=== PATIENT | female | born 1955 | race Caucasian/White ===

== ENCOUNTER 2020-08-05 08:34 | Outpatient (REF) | payer MEDICARE, SELFPAY ==
[2020-08-05 09:50] LABS: Cholesterol 161 mg/dL; HDL Cholesterol 68 mg/dL; LDL Cholesterol Calculated 79 mg/dl; Triglycerides 74 mg/dL
[2020-08-05 09:59] LABS: Reflex LDLD? No
== END 2020-08-05 08:35 | disposition home or self-care (01) ==
LOC: HO.LAB 08:34
PROVIDERS: Visit Provider Internal Medicine
DX: E78.00 Pure hypercholesterolemia, unspecified (principal)
CPT/HCPCS: 80061

== ENCOUNTER 2021-02-09 06:46 | Outpatient (REF) | payer MEDICARE, SELFPAY ==
[2021-02-09 07:33] LABS: MANUAL DIFF FLAG NO
[2021-02-09 07:44] LABS: Basophils Absolute Auto 0.1 X10*3/uL (0.0-0.2); Basophils Percent Auto 1.6 % (0-2); Eosinophils Absolute Auto 0.3 X10*3/uL (0.0-0.4); Eosinophils Percent Auto 4.5 % (0-4); Hematocrit 41.4 % (37-47); Hemoglobin 13.6 g/dl (12.0-16.0); Imm Gran Abs Auto 0.01 X10*3/uL (0.00-0.03); Imm Gran Pct Auto 0.2 % (0.0-0.4); Lymphocytes Absolute Auto 1.9 X10*3/uL (1.2-4.9); Lymphocytes Percent Auto 33.4 % (20-40); Mean Corpuscular HGB Conc 32.9 g/dl (31.0-35.0); Mean Corpuscular Volume 91.2 fL (80-98); Mean Platelet Volume 11.1 fL (9.4-12.3); Monocytes Absolute Auto 0.5 X10*3/uL (0.1-1.2); Monocytes Percent Auto 7.8 % (2-11); Neutrophils Percent Auto 52.5 % (45-73); Platelet Count 246 X10*3/uL (160-400); Red Blood Count 4.54 X10*6/uL (4.20-5.50); Red Cell Distribution Width 12.9 % (11.0-16.0); White Blood Count 5.8 X10*3/uL (4.8-10.8)
[2021-02-09 07:51] LABS: Estimated Average Glucose 114 mg/dL; Hemoglobin A1c % 5.6 %
[2021-02-09 07:53] LABS: Alanine Aminotransferase 17 U/L (0-31); Alkaline Phosphatase 76 U/L (39-117); Anion Gap 10 (12-20); Aspartate Amino Transferase 19 U/L (5-31); Bilirubin Total 0.6 mg/dL (0.0-1.0); Blood Urea Nitrogen 10 mg/dL (9-16); Calcium 9.6 mg/dL (8.4-10.2); Carbon Dioxide 28 mmol/L (22-29); Chloride 108 mmol/L (96-108); Cholesterol 216 mg/dL; Estimated Glomerular Filt Rate > 60; Glucose Fasting 98 mg/dL (60-99); HDL Cholesterol 65 mg/dL; LDL Cholesterol Calculated 125 mg/dl; Potassium 4.5 mmol/L (3.3-5.1); Sodium 141 mmol/L (135-145); Total Protein 6.8 g/dL (6.5-8.0); Triglycerides 132 mg/dL
[2021-02-09 08:14] LABS: Vitamin D 25-OH Total 25.6 ng/mL (>30)
[2021-02-09 08:25] LABS: Reflex LDLD? No
[2021-02-09 09:27] LABS: Glucose Urine UA NEG (NEG); Leukocyte Esterase Urine NEG (NEG); Nitrite Urine NEG (NEG); Urine Blood NEG (NEG); Urine Ketones NEG (NEG); Urine Protein NEG (NEG-TRACE)
[2021-02-09 09:28] LABS: Appearance Urine CLEAR; Color Urine YELLOW
[2021-02-09 10:05] LABS: Creatinine Urine 93.42 mg/dL; Microalbumin Urine < 5.0 mg/L
== END 2021-02-09 06:47 | disposition home or self-care (01) ==
LOC: HO.LAB 06:46
PROVIDERS: PCP Internal Medicine; Visit Provider Internal Medicine
DX: Z00.00 Encounter for general adult medical examination without abnormal findings (principal); R73.09 Other abnormal glucose; R79.89 Other specified abnormal findings of blood chemistry; E78.00 Pure hypercholesterolemia, unspecified; E55.9 Vitamin D deficiency, unspecified
CPT/HCPCS: 36415; 80053; 80061; 81003; 82043; 82306; 83036; 85025

== ENCOUNTER 2021-04-08 08:53 | Outpatient (REF) | payer MEDICARE, SELFPAY ==
--- NOTE | ~2021-04-08 | MM_ITS ---
EXAMINATION: BONE DENSITOMETRY CLINICAL INDICATION: Osteoporosis. COMPARISON: Previous BD dated 01/24/2018 and baseline BD dated 11/25/2015. TECHNIQUE: Using a [employer] DXA System (software version: 13.1) manufactured by [employer], dual-energy x-ray absorptiometry was performed of the lumbar spine and left hip. The images are of good technical quality. Summary results are attached. FINDINGS: AP SPINE L1-L4: Current: BMD 0.854 g/cm2, Z-score -1.3, T-score -2.7, osteoporosis, 3.1% decrease from previous, 0.4% increase from baseline (<5% change is not significant). Prior: BMD 0.881 g/cm2. Baseline: BMD 0.851 g/cm2. LEFT FEMUR, NECK: Current: BMD 0.710 g/cm2, Z-score -1.0, T-score -2.4, osteopenia. Prior: BMD 0.754 g/cm2. Baseline: BMD 0.782 g/cm2. LEFT FEMUR, TOTAL: Current: BMD 0.810 g/cm2, Z-score -0.4, T-score -1.6, osteopenia, 4.6% decrease from previous, 4.3% decrease from baseline (<5% change is not significant). Prior: BMD 0.849 g/cm2. Baseline: BMD 0.846 g/cm2. IDENTIFIED RISK FACTORS: Menopause, history of fracture (adult). HISTORY OF FRACTURE: Ankle. MEDICATIONS: Calcium supplements or multivitamin, vitamin D. MM/XR DEXA axial skeleton IMPRESSION: 1. DIAGNOSIS: Osteoporosis based on the lowest T-score value of -2.7 in the lumbar spine applying World Health Organization criteria. 2. 10-YEAR FRACTURE RISK PREDICTION, FRAX: Major osteoporotic fracture (clinical spine, forearm, hip or shoulder) 20.0%. Hip fracture 4.0%. 3. Treatment Recommendations: NOF guidelines recommend consideration for treatment in postmenopausal women and men age 50 and older presenting with the following: -A hip or vertebral (clinical or morphometric) fracture. -T-score less than or equal to -2.5 at the femoral neck or spine after appropriate evaluation to exclude secondary causes. -Low bone mass at the hip or spine and a 10-year fracture probability by FRAX of greater than or equal to 3% for hip fracture or greater than or equal to 20% for major osteoporotic fracture based on the [place] adapted WHO algorithm. 4. Other Recommendations: All treatment decisions require clinical judgment and consideration of individual patient factors, including patient preferences, comorbidities, previous drug use, risk factors not captured in the FRAX model (e.g. frailty, falls, vitamin D deficiency, increased bone turnover, interval significant decline in bone density) and possible under or overestimation of fracture risk by FRAX. Additional medical evaluation for secondary cause of low bone mineral density may be appropriate. FUTURE SCAN RECOMMENDATION: People with diagnosed cases of osteoporosis or at high risk for fracture should have regular bone mineral density tests. For patients eligible for Medicare, routine testing is allowed once every 2 years. The testing frequency can be increased to one year for patients who have rapidly progressing disease, those who are receiving or discontinuing medical therapy to restore bone mass, or have additional risk factors.
--- NOTE | ~2021-04-08 | MM_ITS ---
EXAMINATION: MM SCREENING DIGITAL BREAST TOMOSYNTHESIS, BILATERAL CLINICAL INFORMATION: Screening. Asymptomatic. The lifetime risk of breast cancer based on the Tyrer-Cuzick Model is 4%. COMPARISON: Mammography: 12/29/2018, 11/15/2017, 10/05/2016 TECHNIQUE: Digital breast tomosynthesis is performed in both the craniocaudal and mediolateral oblique views along with computer-aided detection (CAD). Synthesized 2D images are generated from the tomosynthesis. Additional left CC view is provided. FINDINGS: There are scattered areas of fibroglandular density (ACR BI-RADS breast composition Category b). There are no significant masses, abnormal calcifications, or other abnormalities. Parenchymal pattern is similar to prior studies. No interval mass or developing density. The axilla and skin contours are unremarkable. MM/MM tomosynthesis screening BI IMPRESSION: No mammographic evidence of malignancy. ASSESSMENT: BI-RADS 1: Negative RECOMMENDATION: Routine annual mammography screening. This patient's information was entered into a reminder system with a target due date for their next mammogram.
== END 2021-04-08 08:54 | disposition home or self-care (01) ==
LOC: HO.MAMMO 08:53
PROVIDERS: Visit Provider Internal Medicine
DX: Z12.31 Encounter for screening mammogram for malignant neoplasm of breast (principal); Z13.820 Encounter for screening for osteoporosis; M81.0 Age-related osteoporosis without current pathological fracture; Z78.0 Asymptomatic menopausal state; Z87.81 Personal history of (healed) traumatic fracture; Z79.899 Other long term (current) drug therapy
CPT/HCPCS: 77063; 77067; 77080

== ENCOUNTER 2022-02-12 12:25 | Outpatient (REF) | payer MEDICARE, SELFPAY ==
[2022-02-12 12:30] LABS: MANUAL DIFF FLAG NO
[2022-02-12 12:39] LABS: Basophils Absolute Auto 0.1 X10*3/uL (0.0-0.2); Basophils Percent Auto 1.8 % (0-2); Eosinophils Absolute Auto 0.2 X10*3/uL (0.0-0.4); Eosinophils Percent Auto 3.7 % (0-4); Hematocrit 41.9 % (37.0-47.0); Hemoglobin 13.6 g/dl (12.0-16.0); Imm Gran Abs Auto 0.01 X10*3/uL (0.00-0.03); Imm Gran Pct Auto 0.2 % (0.0-0.4); Lymphocytes Absolute Auto 2.1 X10*3/uL (1.2-4.9); Lymphocytes Percent Auto 33.2 % (20-40); Mean Corpuscular HGB Conc 32.5 g/dl (31.0-35.0); Mean Corpuscular Hemoglobin 30.1 pg (27.0-33.0); Mean Corpuscular Volume 92.7 fL (80.0-98.0); Mean Platelet Volume 11.9 fL (9.4-12.3); Monocytes Absolute Auto 0.6 X10*3/uL (0.1-1.2); Monocytes Percent Auto 8.8 % (2-11); Neutrophils Absolute Auto 3.3 x10*3/uL (2.0-8.3); Neutrophils Percent Auto 52.3 % (45-73); Platelet Count 246 X10*3/uL (160-400); Red Blood Count 4.52 X10*6/uL (4.20-5.50); Red Cell Distribution Width 13.5 % (11.0-16.0); White Blood Count 6.3 X10*3/uL (4.8-10.8)
[2022-02-12 13:03] LABS: Alanine Aminotransferase 21 U/L (0-31); Alkaline Phosphatase 101 U/L (39-117); Anion Gap 9 (12-20); Aspartate Amino Transferase 21 U/L (5-31); Bilirubin Total 0.6 mg/dL (0.0-1.0); Blood Urea Nitrogen 11 mg/dL (9-16); Calcium 9.7 mg/dL (8.4-10.2); Carbon Dioxide 28 mmol/L (22-29); Chloride 107 mmol/L (96-108); Cholesterol 160 mg/dL; Estimated Glomerular Filt Rate > 60; Glucose Fasting 96 mg/dL (60-99); HDL Cholesterol 64 mg/dL; LDL Cholesterol Calculated 80 mg/dl; Potassium 4.4 mmol/L (3.3-5.1); Sodium 140 mmol/L (135-145); Total Protein 7.1 g/dL (6.5-8.0); Triglycerides 84 mg/dL
[2022-02-12 13:09] LABS: Creatinine Urine 106.25 mg/dL; Microalbum/Creatinine Ratio Ur 4.7 ug/mg cr
[2022-02-12 13:12] LABS: Estimated Average Glucose 111 mg/dL; Hemoglobin A1c % 5.5 %
[2022-02-12 13:14] LABS: Appearance Urine CLEAR; Color Urine YELLOW; Glucose Urine UA NEG (NEG); Leukocyte Esterase Urine NEG (NEG); Nitrite Urine NEG (NEG); Specific Gravity - Urine 1.025 (1.005-1.025); Urine Blood NEG (NEG); Urine Ketones NEG (NEG); Urine Protein NEG (NEG-TRACE)
[2022-02-12 13:17] LABS: Vitamin D 25-OH Total 26.4 ng/mL (>30)
[2022-02-12 13:37] LABS: RBC Urine 0 /HPF (0); Squamous Epithelial Cell Urine TRACE /LPF; WBC Urine 0-2 /HPF (0-4)
== END 2022-02-12 12:26 | disposition home or self-care (01) ==
LOC: HO.LNP 12:25
PROVIDERS: Visit Provider Internal Medicine
DX: Z00.00 Encounter for general adult medical examination without abnormal findings (principal); R73.03 Prediabetes; R79.89 Other specified abnormal findings of blood chemistry; E78.00 Pure hypercholesterolemia, unspecified; E55.9 Vitamin D deficiency, unspecified
CPT/HCPCS: 80053; 80061; 81001; 82043; 82306; 83036; 85025

== ENCOUNTER 2022-05-26 07:30 | Outpatient (REF) | payer MEDICARE, SELFPAY ==
--- NOTE | ~2022-05-26 | MM_ITS ---
EXAMINATION: MM SCREENING DIGITAL BREAST TOMOSYNTHESIS, BILATERAL CLINICAL INFORMATION: Screening. Asymptomatic. The lifetime risk of breast cancer based on the Tyrer-Cuzick Model is 4%. COMPARISON: Mammography: 04/08/2021, 12/29/2018, 11/15/2017 TECHNIQUE: Digital breast tomosynthesis is performed in both the craniocaudal and mediolateral oblique views along with computer-aided detection (CAD). Synthesized 2D images are generated from the tomosynthesis. Additional left CC view is provided. FINDINGS: There are scattered areas of fibroglandular density (ACR BI-RADS breast composition Category b). There are no significant masses, abnormal calcifications, or other abnormalities. There are stable small intramammary node mid and posterior upper outer left breast similar to prior studies. Parenchymal pattern is similar to prior studies. No developing density. No significant changes. MM/MM tomosynthesis screening BI IMPRESSION: No mammographic evidence of malignancy. ASSESSMENT: BI-RADS 2: Benign RECOMMENDATION: Routine annual mammography screening. This patient's information was entered into a reminder system with a target due date for their next mammogram.
== END 2022-05-26 07:31 | disposition home or self-care (01) ==
LOC: HO.MAMMO 07:30
PROVIDERS: PCP Internal Medicine; Visit Provider Internal Medicine
DX: Z12.31 Encounter for screening mammogram for malignant neoplasm of breast (principal)
CPT/HCPCS: 77063; 77067

== ENCOUNTER 2022-08-13 11:41 | Outpatient (REF) | payer MEDICARE, SELFPAY ==
[2022-08-13 12:07] LABS: Estimated Average Glucose 108 mg/dL; Hemoglobin A1c % 5.4 %
[2022-08-13 12:45] LABS: Alanine Aminotransferase 49 U/L (0-31); Alkaline Phosphatase 117 U/L (39-117); Aspartate Amino Transferase 40 U/L (5-31); Bilirubin Direct 0.3 mg/dL (0.0-0.5); Bilirubin Total 0.8 mg/dL (0.0-1.0); Cholesterol 174 mg/dL; Glucose Fasting 99 mg/dL (60-99); HDL Cholesterol 62 mg/dL; LDL Cholesterol Calculated 92 mg/dl; Total Protein 7.1 g/dL (6.5-8.0); Triglycerides 103 mg/dL
[2022-08-13 13:51] LABS: Reflex LDLD? No
== END 2022-08-13 11:42 | disposition home or self-care (01) ==
LOC: HO.LNP 11:41
PROVIDERS: Visit Provider Internal Medicine
DX: E78.00 Pure hypercholesterolemia, unspecified (principal); R73.03 Prediabetes
CPT/HCPCS: 80061; 80076; 82947; 83036

== ENCOUNTER 2023-02-21 11:00 | Outpatient (REF) | payer MEDICARE, SELFPAY | END 2023-02-21 11:01 | disposition home or self-care (01) | LOC: HO.LNP 11:00 | PROVIDERS: Visit Provider Internal Medicine | DX: Z00.00 Encounter for general adult medical examination without abnormal findings (principal); R73.03 Prediabetes; R79.89 Other specified abnormal findings of blood chemistry; E78.00 Pure hypercholesterolemia, unspecified; E55.9 Vitamin D deficiency, unspecified | CPT/HCPCS: 80053; 80061; 81001; 82043; 82306; 83036; 85025 ==

== ENCOUNTER 2023-06-02 08:00 | Outpatient (REF) | payer MEDICARE, SELFPAY ==
--- NOTE | ~2023-06-02 | MM_ITS ---
EXAMINATION: BONE DENSITOMETRY CLINICAL INDICATION: Age-related osteoporosis without current pathological fracture. COMPARISON: Previous BD dated 04/08/2021 and baseline BD dated 11/25/2015. TECHNIQUE: Using a [employer] DXA System (software version: 13.1) manufactured by [employer], dual-energy x-ray absorptiometry was performed of the lumbar spine and left hip. The images are of good technical quality. Summary results are attached. FINDINGS: AP SPINE L1-L4: Current: BMD 0.764 g/cm2, Z-score -1.9, T-score -3.5, osteoporosis, 10.5% decrease from previous, 10.2% decrease from baseline (<5% change is not significant). Prior: BMD 0.854 g/cm2. Baseline: BMD 0.851 g/cm2. LEFT FEMUR, NECK: Current: BMD 0.669 g/cm2, Z-score -1.1, T-score -2.7, osteoporosis. Prior: BMD 0.710 g/cm2. Baseline: BMD 0.782 g/cm2. LEFT FEMUR, TOTAL: Current: BMD 0.802 g/cm2, Z-score -0.3, T-score -1.6, osteopenia, 1.0% decrease from previous, 5.2% decrease from baseline (<5% change is not significant). Prior: BMD 0.810 g/cm2. Baseline: BMD 0.846 g/cm2. IDENTIFIED RISK FACTORS: History of adult fracture. Menopause. HISTORY OF FRACTURE: Other. MEDICATIONS: Calcium supplement and/or multivitamin. Vitamin D. MM/XR DEXA axial skeleton IMPRESSION: 1. DIAGNOSIS: Osteoporosis based on the lowest T-score value of -3.5 in the lumbar spine applying World Health Organization criteria. 2. 10-YEAR FRACTURE RISK PREDICTION, FRAX: According to the guidelines, FRAX calculation should only be performed on patients in the osteopenia bone density category.?Therefore, FRAX was not performed on this patient.? 3. Treatment Recommendations: NOF guidelines recommend consideration for treatment in postmenopausal women and men age 50 and older presenting with the following: -A hip or vertebral (clinical or morphometric) fracture. -T-score less than or equal to -2.5 at the femoral neck or spine after appropriate evaluation to exclude secondary causes. -Low bone mass at the hip or spine and a 10-year fracture probability by FRAX of greater than or equal to 3% for hip fracture or greater than or equal to 20% for major osteoporotic fracture based on the [place] adapted WHO algorithm. 4. Other Recommendations: All treatment decisions require clinical judgment and consideration of individual patient factors, including patient preferences, comorbidities, previous drug use, risk factors not captured in the FRAX model (e.g. frailty, falls, vitamin D deficiency, increased bone turnover, interval significant decline in bone density) and possible under or overestimation of fracture risk by FRAX. Additional medical evaluation for secondary cause of low bone mineral density may be appropriate. FUTURE SCAN RECOMMENDATION: People with diagnosed cases of osteoporosis or at high risk for fracture should have regular bone mineral density tests. For patients eligible for Medicare, routine testing is allowed once every 2 years. The testing frequency can be increased to one year for patients who have rapidly progressing disease, those who are receiving or discontinuing medical therapy to restore bone mass, or have additional risk factors.
== END 2023-06-02 08:01 | disposition home or self-care (01) ==
LOC: HO.MAMMO 08:00
PROVIDERS: PCP Internal Medicine; Visit Provider Internal Medicine
DX: Z12.31 Encounter for screening mammogram for malignant neoplasm of breast (principal); Z13.820 Encounter for screening for osteoporosis; Z78.0 Asymptomatic menopausal state; M81.0 Age-related osteoporosis without current pathological fracture
CPT/HCPCS: 77063; 77067; 77080

== ENCOUNTER → 2023-06-02 08:45 | Outpatient (BNV) | payer MEDICARE, SELFPAY | PROVIDERS: PCP Internal Medicine; Visit Provider Radiology Diagnostic Radiology | DX: Z12.31 Encounter for screening mammogram for malignant neoplasm of breast (principal) | CPT/HCPCS: 77063; 77067 ==

== ENCOUNTER 2023-09-01 11:00 | Outpatient (REF) | payer MEDICARE, SELFPAY ==
[2023-09-01 11:48] LABS: Estimated Average Glucose 111 mg/dL; Hemoglobin A1c % 5.5 % (<6.0)
[2023-09-01 11:56] LABS: Alanine Aminotransferase 19 U/L (0-31); Alkaline Phosphatase 110 U/L (39-117); Aspartate Amino Transferase 18 U/L (5-31); Bilirubin Direct 0.3 mg/dL (0.0-0.5); Bilirubin Total 0.7 mg/dL (0.0-1.0); Cholesterol 141 mg/dL (<200); Glucose Fasting 95 mg/dL (60-99); HDL Cholesterol 64 mg/dL (>40); LDL Cholesterol Calculated 60 mg/dL (<100); Total Protein 7.6 g/dL (6.5-8.0); Triglycerides 89 mg/dL (<150)
== END 2023-09-01 11:01 | disposition home or self-care (01) ==
LOC: HO.LNP 11:00
PROVIDERS: Visit Provider Internal Medicine
DX: E78.00 Pure hypercholesterolemia, unspecified (principal); R73.03 Prediabetes
CPT/HCPCS: 80061; 80076; 82947; 83036

== ENCOUNTER 2023-09-27 16:57 | Emergency (ER) | payer MEDICARE, SELFPAY ==
[2023-09-27 17:08] VITALS: BP 146/90; PULSE 83; O2SAT 96
--- NOTE | 2023-09-27 17:16 | ECG_ITS ---
Test Reason : CHEST PAIN Blood Pressure : / mmHG Vent. Rate : 080 BPM Atrial Rate : 080 BPM P-R Int : 160 ms QRS Dur : 074 ms QT Int : 352 ms P-R-T Axes : 014 016 042 degrees QTc Int : 405 ms Normal sinus rhythm Nonspecific ST abnormality Abnormal ECG When compared with ECG of 09-NOV-2014 08:48, QT has shortened Referred By: Generic ED Physician Electronically Signed By:KIERSTEN BOONE
[2023-09-27 17:18] VITALS: BP 174/85; PULSE 84; RESP 18; TEMP 37.3; O2SAT 93; BMI 26.8
[2023-09-27 17:22] VITALS: PULSE 81; RESP 18; O2SAT 94
[2023-09-27] MEDS: ondansetron HCL 4 MG/2 ML VIAL IVPUSH (17:27)
--- NOTE | 2023-09-27 17:56 | ED.GENADULT ---
HPI - General Adult General Chief complaint: General Medical Stated complaint: Brief LOC, vomiting dizziness Time Seen by Provider: 09/27/23 17:40 History of Present Illness HPI narrative: 68 y/o F patient; PMH HLD; presents from home reporting two days of generalized fatigue, nausea and vomiting. Decreased PO intake for the last two days. Today the patient had two witnessed episodes of syncope. The first she passed out into her 's arms and the second occurred while transferring onto a stretcher. She did not have head trauma or fall with either episode. Patient has multiple sick contacts at home. She otherwise denies: abdominal pain, chest pain, SOB, cough/congestion, fever or chills, numbness/weakness/tingling. Related Data Previous Rx's Medication Instructions Recorded ondansetron 4 mg disintegrating 4 mg PO Q8H PRN nausea and 09/27/23 tablet vomiting #30 tabs ondansetron 4 mg disintegrating 4 mg PO Q8H PRN nausea and 09/27/23 tablet vomiting #30 tabs Allergies Allergy/AdvReac Type Severity Reaction Status Date / Time No Known Allergies Allergy Unverified 05/08/20 15:06 Review of Systems Review of Systems: Yes all other systems are reviewed and are negative Neurologic: Denies Sensory deficit (Neuro) FORMERLY [facility], [facility] Past Medical History Attestation statement: The following information was validated with the patient. Social History Social History Alcohol intake: never Smoked in Last 30 Days: No Use of substances other than those prescribed or required for medical reasons: No Advance Directives: No Advance Directives Information Provided: No Physical Exam ED Vital Signs: Vital Signs - 24 hr 09/27/23 17:18 09/27/23 17:22 09/27/23 18:00 Temperature 99.1 F Pulse Rate 84 81 76 Respiratory Rate 18 18 18 Blood Pressure 174/85 H 143/94 H Pulse Oximetry 93 94 97 Oxygen Delivery Method Room Air Room Air BMI result Body Mass Index 26.8 Patient is afebrile and hemodynamically stable. Const General: comfortable and no acute distress Orientation/consciousness: patient oriented x3 HENMT Head: Yes atraumatic Ears: TM's normal bilaterally Eyes Pupils: Equal, round and reactive pupils present EOM: EOMs intact bilaterally Neck Neck: Yes full ROM, Yes supple and No tender Chest Chest palpation & inspection: normal inspection of the chest and normal palpation of entire chest wall Resp Effort & Inspection: normal respiratory effort, able to speak in complete sentences and no respiratory distress Auscultation: clear to auscultation bilaterally Cardio Rate: regular rate Rhythm: regular rhythm Peripheral pulses: Peripheral pulses 2+ throughout GI Inspection: Yes normal to inspection, No Abdominal wall edema and No distended Palpation (GI): Soft to palpation, not firm, nontender, no guarding and not rigid Neuro General: patient oriented x3, moves all extremities and no focal motor deficits Cranial nerves: Yes CN's II-XII intact bilaterally and Yes Equal, round and reactive pupils present Sensory Exam: No Sensory deficit (Neuro) Course Course Course Narrative: Patient is afebrile and hemodynamically stable. Will obtain respiratory swab, basic laboratory studies, EKG. Will provided 2L IVF. Reevaluation(s) Reevaluation #1: Discussed respiratory swab finding of influenza with patient. Discussed risks versus benefits of tamiflu. Patient would prefer to defer tamiflu at this time. Labs reviewed - notable for mild transaminitis - likely in known setting of viral illness. Patient informed she will need repeat CMP once viral symptoms resolved. Negative troponin. Suspect syncope vasovagal in origin 2/2 to dehydration in setting of influenza. Patient able to tolerate PO liquids and crackers without difficulty. Plan: Discharge to home with PCP follow up Return precautions given Medications Administered Discontinued Medications Generic Name Dose Route Start Last Admin Trade Name Freq PRN Reason Stop Dose Admin Sodium Chloride 1,000 mls @ 999 mls/hr 09/27/23 18:15 09/27/23 19:25 Ns IV 09/27/23 19:15 Infused .Q1H1M STANLEY Infusion Sodium Chloride 1,000 mls @ 999 mls/hr 09/27/23 18:45 09/27/23 20:23 Ns IV 09/27/23 19:45 Infused .Q1H1M STANLEY Infusion Ondansetron HCl 4 mg 09/27/23 17:23 09/27/23 17:27 Ondansetron Hcl 4 Mg/2 Ml Vial IVPUSH 09/27/23 17:24 4 mg ONCE ONE Administration Medical Decision Making Lab Data 09/27/23 18:21 09/27/23 18:21 Labs: Lab Results 09/27/23 09/27/23 Range/Units 17:29 18:21 WBC 5.2 (4.8-10.8) X10*3/uL RBC 4.50 (4.20-5.50) X10*6/uL Hgb 13.5 (12.0-16.0) g/dl Hct 40.1 (37.0-47.0) % MCV 89.1 (80.0-98.0) fL MCH 30.0 (27.0-33.0) pg MCHC 33.7 (31.0-35.0) g/dl RDW 13.3 (11.0-16.0) % Plt Count 173 D (160-400) X10*3/uL MPV 11.1 (9.4-12.3) fL Immature Gran % (Auto) 0.2 (0.0-0.4) % Neut % (Auto) 77.8 H (45-73) % Lymph % (Auto) 8.7 L (20-40) % [place] % (Auto) 11.7 H (2-11) % Eos % (Auto) 0.6 (0-4) % Baso % (Auto) 1.0 (0-2) % Lymph # (Auto) 0.5 L (1.2-4.9) X10*3/uL [place] # (Auto) 0.6 (0.1-1.2) X10*3/uL Eos # (Auto) 0.0 (0.0-0.4) X10*3/uL Baso # (Auto) 0.1 (0.0-0.2) X10*3/uL Abs Immat Gran (auto) 0.01 (0.00-0.03) X10*3/uL Absolute Neuts (auto) 4.0 (2.0-8.3) x10*3/uL Absolute Nucleated RBC 0.000 (0.0-0.012) X10*3/uL Nucleated RBC % (auto) 0.0 (0.0-0.2) /100WBC Sodium 139 (135-145) mmol/L Potassium 4.4 (3.3-5.1) mmol/L Chloride 104 (96-108) mmol/L Carbon Dioxide 27 (22-29) mmol/L Anion Gap 12 (12-20) BUN 7 L (9-16) mg/dL Creatinine 0.74 (0.5-1.4) mg/dL Estim Creat Clear Calc 70.2 Estimated GFR > 60 Random Glucose 113 (60-115) mg/dL Calcium 9.3 (8.4-10.2) mg/dL Total Bilirubin 0.5 (0.0-1.0) mg/dL Direct Bilirubin 0.2 (0.0-0.5) mg/dL AST 55 H (5-31) U/L ALT 78 H (0-31) U/L Alkaline Phosphatase 127 H (39-117) U/L Troponin I High Sens < 2.7 (<3.5-17.0) ng/L Total Protein 7.5 (6.5-8.0) g/dL Albumin 3.8 (3.5-5.0) g/dL Lipase 20 (8-78) U/L Influenza Type A (PCR) POSITIVE A (Negative) Influenza Type B (PCR) NEGATIVE (Negative) RSV RNA Qual (PCR) NEGATIVE (Negative) SARS-CoV-2 RNA (RT-PCR) NEGATIVE (Negative) Discharge Plan Discharge Clinical Impression: Influenza Patient Disposition: Home, Self-Care Instructions: Influenza (DC) Additional Instructions: As we discussed, you were seen today for fatigue, nausea/vomiting, and passing out. Your respiratory swab showed you were positive for influenza. You have chosen to defer Tamiflu. Your lab work today showed mildly elevated liver function tests. This can occur due to a virus, but should be repeated within 1 - 2 weeks after your symptoms resolve. Please focus on drinking fluids, resting, and using ibuprofen/tylenol as needed for fever and pain management. Return to the emergency department for difficulty breathing, chest pain, or further episodes of passing out especially if you hit your head. Prescriptions: New ondansetron 4 mg tablet,disintegrating 4 mg PO Q8H PRN (Reason: nausea and vomiting) Qty: 30 0RF ondansetron 4 mg tablet,disintegrating 4 mg PO Q8H PRN (Reason: nausea and vomiting) Qty: 30 0RF Referrals: Monroe Meléndez MD [Primary Care Provider] - 1 week
[2023-09-27 18:00] VITALS: BP 143/94; PULSE 76; RESP 18; O2SAT 97
[2023-09-27] MEDS: 0.9 % Sodium Chloride 1,000 ML 999 ML IV ×2 (18:11→19:22)
[2023-09-27 18:28] LABS: MANUAL DIFF FLAG NO
[2023-09-27 18:29] LABS: Basophils Absolute Auto 0.1 X10*3/uL (0.0-0.2); Eosinophils Percent Auto 0.6 % (0-4); Hematocrit 40.1 % (37.0-47.0); Hemoglobin 13.5 g/dl (12.0-16.0); Imm Gran Abs Auto 0.01 X10*3/uL (0.00-0.03); Imm Gran Pct Auto 0.2 % (0.0-0.4); Lymphocytes Absolute Auto 0.5 X10*3/uL (1.2-4.9); Lymphocytes Percent Auto 8.7 % (20-40); Mean Corpuscular HGB Conc 33.7 g/dl (31.0-35.0); Mean Corpuscular Volume 89.1 fL (80.0-98.0); Mean Platelet Volume 11.1 fL (9.4-12.3); Monocytes Absolute Auto 0.6 X10*3/uL (0.1-1.2); Monocytes Percent Auto 11.7 % (2-11); Neutrophils Percent Auto 77.8 % (45-73); Platelet Count 173 X10*3/uL (160-400); Red Cell Distribution Width 13.3 % (11.0-16.0); White Blood Count 5.2 X10*3/uL (4.8-10.8)
[2023-09-27 18:32] LABS: Influenza A PCR POSITIVE (Negative); Influenza B PCR NEGATIVE (Negative); Resp Syncy Virus RNA Qual PCR NEGATIVE (Negative); SARS COV2 PCR INHOUSE NEGATIVE (Negative)
--- NOTE | 2023-09-27 18:41 | PC.NURSE ---
Upon arrival with EMS patient with episode that appeared she was choking. Brought to room 16, patient able to clear secretions on own. Alert and oriented, reports has felt weak and tired over the last few days. Reports was cooking and lowered her to the ground because she knew that she was going to pass out. Medicated per oct, no longer throwing up, reports feeling better after fluids. NSR on monitor
[2023-09-27 18:44] LABS: Alanine Aminotransferase 78 U/L (0-31); Albumin Level 3.8 g/dL (3.5-5.0); Alkaline Phosphatase 127 U/L (39-117); Anion Gap 12 (12-20); Aspartate Amino Transferase 55 U/L (5-31); Bilirubin Direct 0.2 mg/dL (0.0-0.5); Bilirubin Total 0.5 mg/dL (0.0-1.0); Blood Urea Nitrogen 7 mg/dL (9-16); Calcium 9.3 mg/dL (8.4-10.2); Carbon Dioxide 27 mmol/L (22-29); Chloride 104 mmol/L (96-108); Creatinine Clr Calc Pharmacy 70.2; Estimated Glomerular Filt Rate > 60; Glucose Random 113 mg/dL (60-115); Lipase 20 U/L (8-78); Potassium 4.4 mmol/L (3.3-5.1); Sodium 139 mmol/L (135-145); Total Protein 7.5 g/dL (6.5-8.0)
[2023-09-27 18:56] LABS: Troponin-I High Sensitivity < 2.7 ng/L (<3.5-17.0)
[2023-09-27 21:46] VITALS: BP 142/64; PULSE 78; RESP 18; O2SAT 98
== END 2023-09-27 22:18 | disposition home or self-care (01) ==
PROVIDERS: Emergency Provider Emergency Medicine; PCP Internal Medicine
DX: J10.1 Influenza due to other identified influenza virus with other respiratory manifestations (principal); R11.2 Nausea with vomiting, unspecified; R55 Syncope and collapse; Z79.899 Other long term (current) drug therapy
CPT/HCPCS: 0241U; 36415; 80048; 80076; 83690; 84484; 85025; 93005; 96361; 96374; 99284; 99285; J2405

== ENCOUNTER → 2023-09-27 17:16 | Outpatient (BNV) | payer MEDICARE, SELFPAY | PROVIDERS: Emergency Provider Emergency Medicine; PCP Internal Medicine; Visit Provider Internal Medicine | DX: R07.9 Chest pain, unspecified (principal); R94.31 Abnormal electrocardiogram [ECG] [EKG] | CPT/HCPCS: 93010 ==

== ENCOUNTER 2023-10-28 11:45 | Outpatient (REF) | payer MEDICARE, SELFPAY ==
[2023-10-28 12:57] LABS: Alanine Aminotransferase 19 U/L (0-31); Albumin Level 3.8 g/dL (3.5-5.0); Alkaline Phosphatase 84 U/L (39-117); Aspartate Amino Transferase 16 U/L (5-31); Bilirubin Direct 0.2 mg/dL (0.0-0.5); Bilirubin Total 0.6 mg/dL (0.0-1.0); Total Protein 7.2 g/dL (6.5-8.0)
== END 2023-10-28 11:46 | disposition home or self-care (01) ==
LOC: HO.LNP 11:45
PROVIDERS: Visit Provider Internal Medicine
DX: R79.89 Other specified abnormal findings of blood chemistry (principal)
CPT/HCPCS: 80076

== ENCOUNTER 2023-12-14 07:56 | Inpatient (IN) | payer MEDICARE, SELFPAY ==
[2023-12-14] VITALS (11 sets, daily range): BP systolic 120–148; BP diastolic 58–89; PULSE 53–100; RESP 14–20; TEMP 34.6–36.8; O2SAT 92–100; BMI 28.2; BMI 28.7; BMI 29.3
--- NOTE | ~2023-12-14 | XR_ITS ---
EXAMINATION: XR CHEST CLINICAL INFORMATION: Pacemaker insertion COMPARISON: None available. TECHNIQUE: 2 views of the chest were obtained. FINDINGS: Left sided pacer placed with distal tips directed towards the right atrium and right ventricular apex. Pacer appears intact. No pneumothorax. Heart and pulmonary vessels are normal. No congestive change. Lungs clear. No pleural effusions. XR/XR chest 2V IMPRESSION: Pacer placed as described. No abnormalities noted.
--- NOTE | ~2023-12-14 | CT_ITS ---
EXAMINATION: CT HEAD WITHOUT CONTRAST (STROKE PROTOCOL) CLINICAL INFORMATION: Stroke protocol. Headache and syncope. Concern for dissection. COMPARISON: Previous head CT October 2014 TECHNIQUE: Contiguous axial imaging was performed from the skull base to vertex without intravenous administration of contrast. This CT examination was performed using dose optimization techniques as appropriate, variously including the following: *Automated exposure control *Adjustment of mA and/or kV according to patient size (this includes techniques or standardized protocols for targeted exams where dose is matched to indication/reason for exam; i.e. extremities or head) *Use of iterative reconstruction technique DLP: 771 mGy-cm FINDINGS: There is no evidence of an extra-axial collection. There is no evidence of intra or extra-axial hemorrhage. The ventricles and extra-axial CSF spaces are prominent suggestive of mild generalized atrophy. There is nonspecific periventricular white matter disease. No mass, mass effect or infarct is seen. Review of bone windows is normal. No skull fracture. Visualized paranasal sinuses, mastoid air cells and middle ears are clear. CT/CT head for stroke IMPRESSION: No acute intracranial pathology. Generalized atrophy and nonspecific periventricular white matter disease similar to 2015 exam. This critical result was discussed with Dr. Wallis at 909 hours on 12/14/2023. It was ascertained that the content and urgency of the report was understood at the time of direct communication.
--- NOTE | ~2023-12-14 | CT_ITS ---
EXAMINATION: CTA OF THE HEAD AND NECK CLINICAL INFORMATION: Severe right-sided neck pain. Headache. Rule out dissection. COMPARISON: Head CT dated 12/14/2023. Head CT dated 11/09/2014. TECHNIQUE: Test bolus sequences followed by intravenous administration 70 mL of Omnipaque 350. Helical imaging was performed in the axial plane from the mediastinum to the skull vertex. Delayed postcontrast imaging of the head was also performed. The data was processed at the staff nuclear medicine technologist's workstation for generation of MIP sequences. Three-dimensional volume rendered reformatted images were also generated at an offline 3-D workstation. Stenoses are assessed in accordance with NASCET criteria unless otherwise indicated. This CT examination was performed using dose optimization techniques as appropriate, variously including the following: *Automated exposure control *Adjustment of mA and/or kV according to patient size (this includes techniques or standardized protocols for targeted exams where dose is matched to indication/reason for exam; i.e. extremities or head) *Use of iterative reconstruction technique DLP: 1321 mGy-cm. FINDINGS: CTA neck: The imaged aortic arch and origins of the great vessels are normal in caliber with mild atherosclerotic wall calcifications. The common carotid arteries are widely patent. The carotid bifurcations are patent with mild atheromatous disease and fibrofatty plaque extending into the posterior aspect of the left carotid bulb. The remainder of the cervical internal carotid arteries are normal and without stenotic narrowing. The vertebral arteries opacify normally and are of normal caliber. Due to developmental atlantooccipital assimilation, the canal for the upper cervical left vertebral artery at the skull base is likely narrowed. The soft tissues of the neck are unremarkable. 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 Prominent retrodental amorphous calcification may be due to a crystalline deposition arthropathy, as seen in CPPD, or could be related to chronic osteoarthritic disease. The imaged portions of the lungs are clear with mild emphysematous changes. CTA head: The intradural vertebral arteries and basilar artery are normal. The posterior cerebral arteries are widely patent. The internal carotid arteries are of normal caliber. The EFREN and MCA vascular complexes bilaterally are normal. Moderate diffuse brain parenchymal volume loss again evident moderate to severe chronic white matter microangiopathy. There is commensurate ex vacuo dilatation of the ventricles relative to the sulcal spaces. There is no abnormal parenchymal or leptomeningeal enhancement. The venous sinuses opacify normally. CT/CT angio head neck stroke IMPRESSION: No evidence of a vascular dissection. No significant stenosis or occlusion in the cervical or intracranial vasculature at the level of the [place]. 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 Due to this developmental skull base anatomical variant, the left vertebral artery canal is fairly narrowed. Otherwise, the left vertebral artery opacifies normally at this level. Imaging findings reported to Dr. Mcpherson at 9:53 AM on 12/14/2023.
--- NOTE | ~2023-12-14 | FL_ITS ---
EXAMINATION: XR FLUOROSCOPY WITH IMAGES CLINICAL INFORMATION: Dual-chamber pacemaker. COMPARISON: None available. TECHNIQUE: Fluoroscopy Supervised By: Dr. Aponte. Fluoroscopy Time: 10 minutes 54 seconds. Cumulative Dose: 137.87 mGy. DAP: 39.559 Gy-cm2. Images: 4 FINDINGS: One image demonstrates contrast in the axillary and subclavian vein. Final images demonstrate a left chest wall pacemaker with one lead in the right atria the other at the right ventricular apex. FL/FL guidance in OR IMPRESSION: Fluoroscopy and spot films provided during pacemaker placement.
--- NOTE | 2023-12-14 08:22 | ECG_ITS ---
Test Reason : SYNCOPE Blood Pressure : / mmHG Vent. Rate : 045 BPM Atrial Rate : 045 BPM P-R Int : 154 ms QRS Dur : 078 ms QT Int : 484 ms P-R-T Axes : -09 036 050 degrees QTc Int : 418 ms Sinus bradycardia Otherwise normal ECG When compared with ECG of 27-SEP-2023 17:21, Vent. rate has decreased BY 35 BPM Referred By: Jennifer Mcpherson Electronically Signed By:RACHEL LEIVA MD
--- NOTE | 2023-12-14 08:36 | ED_ITS ---
HPI - Dizziness General Chief Complaint: Weakness Stated Complaint: R NECK PAIN,WEAK,NAUSEA/VOMTING PER EMS Time Seen by Provider: 12/14/23 08:02 Source: patient and old records reviewed Mode of arrival: EMS Limitations: no limitations History of Present Illness HPI Narrative: 68 yo female with PMH of HLD here with c/o abrupt onset severe R sided neck pain that caused her to get severe headache and syncope with vomiting x 2. She still has neck pain but it does not really hurt to move. This has never happened before she is not on thinners. She feels a little dizzy no numbness, weakness in extremities, no slurring of speech and no vision changes. EMS noted she vomited on scene with them and was pale and diaphoretic. No recent neck trauma or manipulation. She only takes a statin at home. MD elicited complaint: dizziness, lightheadedness and other (severe neck and head pain) Onset (ago): hour(s) (7am today) Timing: sudden onset Severity: severe Description: lightheadedness and other (syncope, severe neck pain and headache) History of similar symptoms: No Exacerbating factors: nothing Relieving factors: nothing Associated symptoms: nausea, vomiting and syncope Related Data Previous Rx's ?Medication ?Instructions ?Recorded ondansetron 4 mg disintegrating 4 mg PO Q8H PRN nausea and 09/27/23 tablet vomiting #30 tabs ondansetron 4 mg disintegrating 4 mg PO Q8H PRN nausea and 09/27/23 tablet vomiting #30 tabs Allergies Allergy/AdvReac Type Severity Reaction Status Date / Time No Known Allergies Allergy Unverified 12/14/23 08:21 Review of Systems 2 Review of Systems: Constitutional : No Fever, No Chills, No Fatigue ENT/Mouth : No sore throat, No Rhinorrhea Eyes: No Eye Pain, No Swelling, No Redness Cardiovascular : No Chest Pain, No SOB, No Dyspnea on Exertion Respiratory : No Cough, No Sputum Gastrointestinal : pos Nausea, pos Vomiting, No Diarrhea, No abdominal Pain Genitourinary : No Dysuria, No Urinary Frequency, No Hematuria, Musculoskeletal : No joint pain, No Myalgias, No Joint Swelling Skin : No Skin Lesions, No rash Neuro : No Weakness, No Numbness, pos Dizziness, positive Headache, pos syncope Psych : No Anxiety/Panic, No Depression All other systems reviewed and are negative PMFSH Past Medical History Attestation statement: The following information was validated with the patient. Source: old records reviewed Medical History (Updated 12/14/23 @ 12:42 by Jennifer Mcpherson DO) Hyperlipidemia Social History Social History (Updated 12/14/23 @ 08:40 by Jennifer Mcpherson DO) Alcohol intake: never Patient Tobacco Use Status: Never used Tobacco Advance Directives: No Advance Directives Information Provided: Yes Do you have a plan to hurt others: No Plan Physical Exam 2 Vital Signs: Vital Signs: Last Vital Signs Temp 95.3 F L 12/14/23 09:49 Pulse 62 12/14/23 09:49 Resp 14 12/14/23 09:49 BP 148/59 H 12/14/23 09:49 Pulse Ox 100 12/14/23 09:49 O2 Del Method Room Air 12/14/23 09:49 BMI result Body Mass Index 28.2 Appearance: Alert. Oriented X3. Mild acute distress. Eyes: Pupils equal, round and reactive to light. ENT: Pharynx normal. Neck: Normal inspection. Neck supple. no pain on R side CVS: Normal heart rate and rhythm. Pulses normal. Respiratory: No respiratory distress. Breath sounds normal. Abdomen: Soft and nontender. Skin: Skin warm and clammy pale skin color. Normal skin turgor. Extremities: No lower extremity edema. No calf ttp Neuro: Oriented X 3. No motor deficit. No sensory deficit. NIH Stroke Scale Internal: Initial- Upon Arrival Level of Consciousness: Alert Level of Consciousness Questions: Answers both questions correctly Level of Consciousness Commands: Performs both tasks correctly Best Gaze: Normal Visual: No visual loss Facial Palsy: Normal Motor Arm (Right): No drift Motor Arm (Left): No drift Motor Leg (Right): No drift Motor Leg (Left): No drift Limb Ataxia: Absent Sensory: Normal Best Language: No aphasia Dysarthia: Normal Extinction and Inattention: No abnormality Score: 0 Course Course Course Narrative: review of tele showing 9 second pauses around 920am while patient was in bed - no vomiting reported patient still feels weak and dizzy no chest pain will review with cardiology Dr. Narayan at bedside 1230pm Medications Administered Discontinued Medications Generic Name Dose Route Start Last Admin Trade Name Freq PRN Reason Stop Dose Admin Dexamethasone Sodium Phosphate 8 mg 12/14/23 09:02 12/14/23 09:16 Dexamethasone Sod Phosphate 4 Mg/Ml Vial IVPUSH 12/14/23 09:03 8 mg ONCE ONE Administration Sodium Chloride 1,000 mls @ 999 mls/hr 12/14/23 08:45 12/14/23 10:26 Ns IV 12/14/23 09:45 Infused .Q1H1M STANLEY Infusion Ketorolac Tromethamine 15 mg 12/14/23 10:12 12/14/23 10:23 Ketorolac Tromethamine 15 Mg/Ml Vial IVPUSH 12/14/23 10:13 15 mg ONCE ONE Administration Lorazepam 0.5 mg 12/14/23 10:12 12/14/23 10:24 Lorazepam 2 Mg/Ml Vial IVPUSH 12/14/23 10:13 0.5 mg STAT STA Administration Morphine Sulfate 4 mg 12/14/23 08:45 12/14/23 09:15 Morphine Sulfate 4 Mg/Ml Cartridge IVPUSH 12/14/23 08:46 4 mg ONCE ONE Administration Protocol Ondansetron HCl 4 mg 12/14/23 08:45 12/14/23 09:16 Ondansetron Hcl 4 Mg/2 Ml Vial IVPUSH 12/14/23 08:46 4 mg ONCE ONE Administration Medical Decision Making Medical Decision Making MDM Narrative: 68 yo female with PMH of hyperlipidemia here with c/o severe abrupt onset R sided neck pain resulting in syncope headache and vomiting she is GCS 15 and NIH 0 she is intact at this time I have ordered EKG, stat CTA head and neck for stroke given concern for vert artery dissection. She is not on thinners. IV zofran and morphine for pain. Differential Diagnosis Differential Diagnoses: The differential diagnosis associated with the presentation includes SAH, vertebral artery dissection Admission/Observation Consideration of admission/observation: Escalation of care including admission/observation considered admit given sinus pauses and syncope Consult Healthcare Provider Management of the patient was discussed with: Hospitalist (will admit) and Document Control Specialist (Dr. Narayan at bedside ) Lab Data MDM Lab Attestation statement: I reviewed the patient's lab results. 12/14/23 09:26 12/14/23 09:26 Labs: Lab Results 12/14/23 12/14/23 12/14/23 Range/Units 09:09 09:26 11:38 WBC 9.0 (4.8-10.8) X10*3/uL RBC 4.40 (4.20-5.50) X10*6/uL Hgb 13.2 (12.0-16.0) g/dl Hct 39.3 (37.0-47.0) % MCV 89.3 (80.0-98.0) fL MCH 30.0 (27.0-33.0) pg MCHC 33.6 (31.0-35.0) g/dl RDW 13.2 (11.0-16.0) % Plt Count 216 (160-400) X10*3/uL MPV 10.8 (9.4-12.3) fL Immature Gran % (Auto) 0.2 (0.0-0.4) % Neut % (Auto) 71.0 (45-73) % Lymph % (Auto) 17.9 L (20-40) % [place] % (Auto) 8.5 (2-11) % Eos % (Auto) 1.6 (0-4) % Baso % (Auto) 0.8 (0-2) % Lymph # (Auto) 1.6 (1.2-4.9) X10*3/uL [place] # (Auto) 0.8 (0.1-1.2) X10*3/uL Eos # (Auto) 0.1 (0.0-0.4) X10*3/uL Baso # (Auto) 0.1 (0.0-0.2) X10*3/uL Abs Immat Gran (auto) 0.02 (0.00-0.03) X10*3/uL Absolute Neuts (auto) 6.4 (2.0-8.3) x10*3/uL Absolute Nucleated RBC 0.000 (0.0-0.012) X10*3/uL Nucleated RBC % (auto) 0.0 (0.0-0.2) /100WBC Whole Blood PT 11.9 (11.1-13.5) sec Whole Blood INR 1.0 (0.9-1.1) Sodium 138 (135-145) mmol/L Potassium 4.4 (3.3-5.1) mmol/L Chloride 109 H (96-108) mmol/L Carbon Dioxide 24 (22-29) mmol/L Anion Gap 9 L (12-20) BUN 13 (9-16) mg/dL Creatinine 0.71 (0.5-1.4) mg/dL Estim Creat Clear Calc 63.9 Estimated GFR > 60 Random Glucose 129 H (60-115) mg/dL Calcium 9.0 (8.4-10.2) mg/dL Magnesium 1.9 (1.6-2.6) mg/dL Total Bilirubin 0.6 (0.0-1.0) mg/dL Direct Bilirubin 0.2 (0.0-0.5) mg/dL AST 19 (5-31) U/L ALT 17 (0-31) U/L Alkaline Phosphatase 82 (39-117) U/L Troponin I High Sens < 2.7 < 2.7 (<3.5-17.0) ng/L Total Protein 6.9 (6.5-8.0) g/dL Albumin 3.5 (3.5-5.0) g/dL COVID-19 (SUSAN) Negative (Negative) COVID-19 Clin Com See Note Independent Interpretation I performed an independent interpretation of an: EKG and CT Scan (no dissection) Interpretation: Rate: 45 Rhythm: sinus bradycardia [place]: normal Normal P waves. Normal WANDY. Normal QRS complex. ST T wave : no JINA, normal qTC: 418 prior studies: no acute ischemi The study has been interpreted contemporaneously by me. . Radiology Impression Discussion of test interpretation with radiology: I discussed test interpretation with the radiologist and I have reviewed the radiologist's reading. Radiologist Impression: 920am CT head negative Independent Historian Clinical information obtained from an independent historian. History obtained from or confirmed by: EMS Critical Care Time Critical Care Time Critical Care Time: Yes Total Critical Care Time: 60 Attestation: IV morphine for pain improvement, consult, stroke protocol, admission I attest to this time spent taking care of the patient Discharge Plan Discharge Clinical Impression: Acute neck pain, Sinus pause, Syncope and collapse Patient Disposition: Admitted As Inpatient Prescriptions: No Action ondansetron 4 mg tablet,disintegrating 4 mg PO Q8H PRN (Reason: nausea and vomiting) Qty: 30 0RF ondansetron 4 mg tablet,disintegrating 4 mg PO Q8H PRN (Reason: nausea and vomiting) Qty: 30 0RF Print Language: Bur[place]ian
[2023-12-14 09:13] LABS: Prothrombin Time Whole Bld POC 11.9 sec (11.1-13.5)
[2023-12-14] MEDS: Morphine Sulfate 4 MG/ML CARTRIDGE IVPUSH (09:15)
[2023-12-14] MEDS: 0.9 % Sodium Chloride 1,000 ML 999 ML IV (09:15)
[2023-12-14] MEDS: dexAMETHasone sod phosphate 4 MG/ML VIAL 8 MG IVPUSH (09:16)
[2023-12-14] MEDS: ondansetron HCL 4 MG/2 ML VIAL IVPUSH (09:16)
[2023-12-14 09:30] LABS: MANUAL DIFF FLAG NO
[2023-12-14 09:36] LABS: Basophils Absolute Auto 0.1 X10*3/uL (0.0-0.2); Basophils Percent Auto 0.8 % (0-2); Eosinophils Absolute Auto 0.1 X10*3/uL (0.0-0.4); Eosinophils Percent Auto 1.6 % (0-4); Hematocrit 39.3 % (37.0-47.0); Hemoglobin 13.2 g/dl (12.0-16.0); Imm Gran Abs Auto 0.02 X10*3/uL (0.00-0.03); Imm Gran Pct Auto 0.2 % (0.0-0.4); Lymphocytes Absolute Auto 1.6 X10*3/uL (1.2-4.9); Lymphocytes Percent Auto 17.9 % (20-40); Mean Corpuscular HGB Conc 33.6 g/dl (31.0-35.0); Mean Corpuscular Volume 89.3 fL (80.0-98.0); Mean Platelet Volume 10.8 fL (9.4-12.3); Monocytes Absolute Auto 0.8 X10*3/uL (0.1-1.2); Monocytes Percent Auto 8.5 % (2-11); Neutrophils Absolute Auto 6.4 x10*3/uL (2.0-8.3); Platelet Count 216 X10*3/uL (160-400); Red Cell Distribution Width 13.2 % (11.0-16.0)
[2023-12-14 09:59] LABS: Alanine Aminotransferase 17 U/L (0-31); Albumin Level 3.5 g/dL (3.5-5.0); Alkaline Phosphatase 82 U/L (39-117); Anion Gap 9 (12-20); Aspartate Amino Transferase 19 U/L (5-31); Bilirubin Direct 0.2 mg/dL (0.0-0.5); Bilirubin Total 0.6 mg/dL (0.0-1.0); Blood Urea Nitrogen 13 mg/dL (9-16); Carbon Dioxide 24 mmol/L (22-29); Chloride 109 mmol/L (96-108); Creatinine Clr Calc Pharmacy 63.9; Estimated Glomerular Filt Rate > 60; Glucose Random 129 mg/dL (60-115); Magnesium 1.9 mg/dL (1.6-2.6); Potassium 4.4 mmol/L (3.3-5.1); Sodium 138 mmol/L (135-145); Total Protein 6.9 g/dL (6.5-8.0)
[2023-12-14 10:12] LABS: COVID-19 Test Negative (Negative); IDNOW Serial# 08D9AD1C
[2023-12-14] MEDS: Ketorolac Tromethamine 15 MG/ML VIAL IVPUSH (10:23)
[2023-12-14] MEDS: LORazepam 2 MG/ML VIAL 0.5 MG IVPUSH (10:24)
[2023-12-14 10:41] LABS: Troponin-I High Sensitivity < 2.7 ng/L (<3.5-17.0)
[2023-12-14 12:15] LABS: Troponin-I High Sensitivity < 2.7 ng/L (<3.5-17.0)
--- NOTE | 2023-12-14 13:45 | P.CONCA_ITS ---
History of Present Illness History of Present Illness Date of Service: 12/14/23 Requesting physician: Jennifer Mcpherson Consult reason: other (Syncope, sinus pause) Chief complaint: R NECK PAIN,WEAK,NAUSEA/VOMTING PER EMS Narrative: I was consulted to see Adelaida in emergency room as patient came with syncopal episode. Patient is a 68-year-old female with prior history of hyperlipidemia on medications for the same. Patient woke up this morning says she was working a lot with her and right hand yesterday. Woke up with significant right neck pain of unclear etiology. She then went to the bathroom and she felt lightheaded and then passed out. Vomited after that. She said in the past she has had similar episodes, last episode was recently when she had diarrhea and was dehydrated and then she felt warm and passed out. However this episode she says she actually blacked out and when I asked what the difference for she says that she does not recall this episode at all. She came to the emergency room was sent down for CT scan for her severe right neck pain with a suspicion for dissection and this was negative. An hour later in the Emergency was noted to have significant pauses up to 9 seconds with escape junctional escape ventricular complexes. Got lightheaded during this episode. She was not particularly nauseous or vomiting at that point in time. Patient has remained hemodynamically stable and is been mostly bed-bound. Cardiology consult was sought because of the syncopal episode and sinus pauses. Review of Systems 2 Constitutional: Constitutional: Reports no additional constitutional complaints Eyes: Eyes: Reports no additional eye complaints ENT: Reports system reviewed and no additional complaints, except as documented Cardiovascular: Cardiovascular: Denies chest pain, Denies leg edema, Reports lightheadedness, Reports Loss of Consciousness, Denies palpitations and Denies dyspnea Respiratory: Respiratory: Reports no additional respiratory complaints and Denies dyspnea Gastrointestinal: Gastrointestinal: Reports no additional gastrointestinal complaints Genitourinary: Genitourinary: Reports no additional female genitourinary complaints Musculoskeletal: Musculoskeletal: Reports other (Right neck pain) Neurologic: Reports system reviewed and no additional complaints, except as documented Psychiatric: Psychiatric: Reports no additional psychiatric complaints Endocrine: Endocrine: Reports no additional endocrine complaints and Denies palpitations PMFSH Past Medical History Medical History Hyperlipidemia Social History Social History Alcohol intake: never Patient Tobacco Use Status: Never used Tobacco Advance Directives: No Advance Directives Information Provided: Yes Do you have a plan to hurt others: No Plan Meds Allergies Allergy/AdvReac Type Severity Reaction Status Date / Time No Known Allergies Allergy Unverified 12/14/23 08:21 Physical Exam 2 Vital Signs: Vital Signs: Last Vital Signs Temp 95.3 F L 12/14/23 09:49 Pulse 62 12/14/23 09:49 Resp 14 12/14/23 09:49 BP 148/59 H 12/14/23 09:49 Pulse Ox 100 12/14/23 09:49 O2 Del Method Room Air 12/14/23 09:49 BMI result Body Mass Index 28.2 Const: General: cooperative, comfortable, no acute distress, alert and awake Nutritional Appearance: overweight Orientation/consciousness: patient oriented x3 HEENT: Head: Yes normocephalic and Yes atraumatic Neck: Neck: Yes trachea midline, Yes supple and Yes no JVD Resp: Effort & Inspection: normal respiratory effort Auscultation: clear to auscultation bilaterally Cardio: Jugular venous distension: no JVD Palpation: normal PMI Rate: r egular rate Rhythm: regular rhythm Heart sounds: S1 normal heart sound present, S2 normal heart sound present, no click, no gallops, no murmurs and no rubs GI: Auscultation: normal bowel sounds Skin: General skin exam: no rashes or lesions noted Neuro: General: patient oriented x3 and no focal motor deficits Extrem: General: Yes no clubbing, cyanosis or edema Psych: Appearance: grossly normal Objective Labs and Meds 12/14/23 09:26 12/14/23 09:26 Lab results: Laboratory Results - last 24 hr 12/14/23 12/14/23 12/14/23 09:09 09:26 11:38 WBC 9.0 RBC 4.40 Hgb 13.2 Hct 39.3 MCV 89.3 MCH 30.0 MCHC 33.6 RDW 13.2 Plt Count 216 MPV 10.8 Immature Gran % (Auto) 0.2 Neut % (Auto) 71.0 Lymph % (Auto) 17.9 L [place] % (Auto) 8.5 Eos % (Auto) 1.6 Baso % (Auto) 0.8 Lymph # (Auto) 1.6 [place] # (Auto) 0.8 Eos # (Auto) 0.1 Baso # (Auto) 0.1 Abs Immat Gran (auto) 0.02 Absolute Neuts (auto) 6.4 Absolute Nucleated RBC 0.000 Nucleated RBC % (auto) 0.0 Whole Blood PT 11.9 Whole Blood INR 1.0 Sodium 138 Potassium 4.4 Chloride 109 H Carbon Dioxide 24 Anion Gap 9 L BUN 13 Creatinine 0.71 Estim Creat Clear Calc 63.9 Estimated GFR > 60 Random Glucose 129 H Calcium 9.0 Magnesium 1.9 Total Bilirubin 0.6 Direct Bilirubin 0.2 AST 19 ALT 17 Alkaline Phosphatase 82 Troponin I High Sens < 2.7 < 2.7 Total Protein 6.9 Albumin 3.5 COVID-19 (SUSAN) Negative COVID-19 Clin Com See Note EKG shows sinus bradycardia with no acute ST T wave changes Imaging Radiologist's impression: Impressions Head CT 12/14/23 08:51 IMPRESSION: No acute intracranial pathology. Generalized atrophy and nonspecific periventricular white matter disease similar to 2015 exam. This critical result was discussed with Dr. Wallis at 909 hours on 12/14/2023. It was ascertained that the content and urgency of the report was understood at the time of direct communication. Head/Neck CTA 12/14/23 09:04 IMPRESSION: No evidence of a vascular dissection. No significant stenosis or occlusion in the cervical or intracranial vasculature at the level of the [place]. 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 Due to this developmental skull base anatomical variant, the left vertebral artery canal is fairly narrowed. Otherwise, the left vertebral artery opacifies normally at this level. Imaging findings reported to Dr. Mcpherson at 9:53 AM on 12/14/2023. Assessment and Plan (1) Syncope and collapse: Status: Acute Patient comes with syncope after severe right neck pain and has had syncope in the past in dehydration situation after GI vomiting. These episodes seem to be reflex in nature although patient has significant pauses associated lightheadedness and is possible that she has vasovagal syncope with significant cardio inhibitory response. Either way if she has significant sinus node dysfunction and/or cardio inhibitory vasovagal syncope she would benefit from a pacemaker placement to prevent recurrent syncopal episodes and injury. This was discussed with her and her family extensively at bedside. The risks, benefits, alternatives to the procedures were discussed. Potential long-term complications were discussed as well in details. Would consider dual-chamber Medtronic pacemaker with rate drop response. Discussed with EPS Dr. Aponte who would be able to perform the pacemaker later today. Will follow with you. Procedures Date of Service Date of Service: 12/14/23
--- NOTE | 2023-12-14 14:00 | PM.IMHP ---
History of Present Illness Date of Service: 12/14/23 Attending physician on admission: Lola Crabtree Chief Complaint: syncope 68 year old female with history of hld and recurrent vasovagal syncope presented to the ED for evaluation of syncopal episode. Pt is accompanied by two sons and her , Refugio who is health care proxy. She reports she has been having intermittent severe right-sided neck pain with unknown injury. She states today the neck pain was so bad she develops severe headache, vomiting x2 and syncopized for several seconds around 7am today. This was unwitnessed. She has not on blood thinners. She does report she has history of syncopal episodes in the past that have typically been related to what the describes his dehydration. She does follow with Dr. Meléndez in Cardiology who has reported this as vasovagal syncope. She has not on any blood thinners and has no known cardiac history. She denies any diaphoresis, palpitations, dyspnea, or chest pain. On arrival, vital signs stable. Hematology studies unremarkable. Renal function baseline, electrolyte levels normal. Glucose 129. Hepatic function within normal limits. Troponin undetectable. Negative for COVID-19. Head CT negative for acute intracranial abnormality. CTA head/neck negative for evidence of vascular disease dissection but no significant stenosis or occlusion in the cervical or intracranial vasculature at the level of the [place]. 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 While in the ED, she did have a [address] second pause noted on court monitor. Electrolyte levels again within normal limits. ED discussed case with cardiology who recommended admission for pacemaker. Plan for pacemaker performed by Dr. Aponte in EP later today. Review of Systems Review of Systems: General: No fevers, malaise, unintentional weight loss HEENT: No blurred vision, diplopia. No sore throat, nasal congestion, rhinorrhea, sinus pain, ear pain Cardiovascular: +syncope. No chest pain, palpitations, or leg edema Respiratory: No shortness of breath, wheezing, cough GI: +vomiting. No abdominal pain, nausea, diarrhea, constipation, melena, hematochezia : No dysuria, hematuria, increased urinary frequency, decreased urinary output MSK: No myalgia, back pain. +neck pain Neuro: No weakness, paresthesias. +neck pain Skin: No rashes or lesions [facility] Medical History Vasovagal syncope Hyperlipidemia Social History Alcohol intake: never Patient Tobacco Use Status: Never used Tobacco Advance Directives: No Advance Directives Information Provided: Yes Do you have a plan to hurt others: No Plan Meds Allergies Allergy/AdvReac Type Severity Reaction Status Date / Time No Known Allergies Allergy Unverified 12/14/23 08:21 Active Medications: Current Medications Acetaminophen (Acetaminophen 325 Mg Tablet) 650 mg PO Q6H PRN PRN Reason: Pain, Mild (Pain Scale 1-3) Ondansetron HCl (Ondansetron Hcl 4 Mg/2 Ml Vial) 4 mg IVPUSH Q8H PRN PRN Reason: Nausea and Vomiting Senna (Sennosides 8.6 Mg Tablet) 17.2 mg PO BEDTIME PRN PRN Reason: Constipation Sodium Chloride (0.9 % Sodium Chloride Flush 3 Ml Syringe) 3 ml IVFLUSH [facility] Medications ?Medication ?Instructions ?Recorded ?Confirmed ?Last Taken ?Type atorvastatin 40 mg tablet 40 mg PO BEDTIME 12/14/23 12/14/23 Unknown History calcium carbonate 500 mg calcium 500 mg PO BEDTIME 12/14/23 12/14/23 Unknown History (1,250 mg) tablet cholecalciferol (vitamin D3) 25 25 mcg PO BEDTIME 12/14/23 12/14/23 Unknown History mcg (1,000 unit) tablet fluticasone propionate 50 1 spray intranasal BID PRN 12/14/23 12/14/23 Unknown History mcg/actuation nasal Allergic Symptoms spray,suspension Physical Exam Vital Signs and Narrative: Vital Signs: Last Vital Signs Temp 95.3 F L 12/14/23 09:49 Pulse 62 12/14/23 09:49 Resp 14 12/14/23 09:49 BP 148/59 H 12/14/23 09:49 Pulse Ox 100 12/14/23 09:49 O2 Del Method Room Air 12/14/23 09:49 BMI result Body Mass Index 28.2 Constitutional - Awake and Alert, No apparent distress Eyes - PERRLA, EOMI Cardiovascular - S1S2, RRR, No edema Respiratory - Normal lung expansion, Normal respiratory effort, No respiratory distress, CTA bilaterally Extremities - no calf tenderness bilaterally, no swelling Skin - Warm/Dry Neurological - Alert & oriented x3 Psychological - Appropriate affect Results Labs 12/14/23 09:26 12/14/23 09:26 Labs: Laboratory Results - last 24 hr 12/14/23 12/14/23 12/14/23 09:09 09:26 11:38 MCV 89.3 MCH 30.0 MCHC 33.6 RDW 13.2 Plt Count 216 MPV 10.8 Immature Gran % (Auto) 0.2 Neut % (Auto) 71.0 Lymph % (Auto) 17.9 L [place] % (Auto) 8.5 Eos % (Auto) 1.6 Baso % (Auto) 0.8 Lymph # (Auto) 1.6 [place] # (Auto) 0.8 Eos # (Auto) 0.1 Baso # (Auto) 0.1 Abs Immat Gran (auto) 0.02 Absolute Neuts (auto) 6.4 Absolute Nucleated RBC 0.000 Nucleated RBC % (auto) 0.0 Whole Blood PT 11.9 Whole Blood INR 1.0 Anion Gap 9 L Estim Creat Clear Calc 63.9 Estimated GFR > 60 Random Glucose 129 H Calcium 9.0 Magnesium 1.9 Total Bilirubin 0.6 Direct Bilirubin 0.2 AST 19 ALT 17 Alkaline Phosphatase 82 Troponin I High Sens < 2.7 < 2.7 Total Protein 6.9 Albumin 3.5 COVID-19 (SUSAN) Negative COVID-19 Clin Com See Note Imaging Radiologist's Impressions: Impressions Head CT 12/14/23 08:51 IMPRESSION: No acute intracranial pathology. Generalized atrophy and nonspecific periventricular white matter disease similar to 2015 exam. This critical result was discussed with Dr. Wallis at 909 hours on 12/14/2023. It was ascertained that the content and urgency of the report was understood at the time of direct communication. Head/Neck CTA 12/14/23 09:04 IMPRESSION: No evidence of a vascular dissection. No significant stenosis or occlusion in the cervical or intracranial vasculature at the level of the [place]. 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 Due to this developmental skull base anatomical variant, the left vertebral artery canal is fairly narrowed. Otherwise, the left vertebral artery opacifies normally at this level. Imaging findings reported to Dr. Mcpherson at 9:53 AM on 12/14/2023. Assessment and Plan (1) Syncope and collapse: Status: Acute (2) Sinus pause: Status: Acute (3) Acute neck pain: Status: Acute Plan 68 year old female with history of hld and recurrent vasovagal syncope admitted for sinus pause with need for pacemaker insertion #Sinus pause -9 second sinus pause noted on court monitor -plan for pacemaker performed by Dr. Aponte (EP) later today. Keep NPO for now -cardiology consult -monitor on telemetry #Cardioinhibitory reflex syncope -can continue antiemetics prn -pacemaker as above -cardiology consult #Acute neck pain -oxycodone prn for severe pain -lidocaine patch #Narrowing of left vertebral artery canal -seen on CTA head/neck -consider asa on dc -outpt follow up #hld -statin DVT prophylaxis- scps full code pt requires inpt stay at least 2 midnights due to significant sinus pause requiring close cardiac monitoring, expert consulation, and pacemaker placement. Quality Stroke Does the patient have a stroke diagnosis?: No VTE Prior VTE?: No VTE Risk Level:: Medical - moderate - high VTE Device Contraindication: N/A - Device Ordered VTE Drug Contraindication: Treatment Not Indicated
--- NOTE | 2023-12-14 14:11 | PHA.MEDREC ---
Pharmacy Consult ? Medication Reconciliation Pharmacy has completed the medication reconciliation. Spoke to patient at bedside, named all of her medications
--- NOTE | 2023-12-14 14:47 | PC.NURSE ---
pt taken to OR
--- NOTE | 2023-12-14 14:51 | P.CONAN_ITS ---
[facility] Active Problems Active Problems: All Active Problems Syncope and collapse (Acute) Sinus pause (Acute) Acute neck pain (Acute) Past Medical History Medical History Vasovagal syncope Hyperlipidemia Family History Family history of problems with anesthesia: No Surgical History History of Problems with Anesthesia: No Social History Social History Alcohol intake: never Patient Tobacco Use Status: Never used Tobacco Meds Allergies Allergy/AdvReac Type Severity Reaction Status Date / Time No Known Allergies Allergy Unverified 12/14/23 08:21 Active Medications: Current Medications Acetaminophen (Acetaminophen 325 Mg Tablet) 650 mg PO Q6H PRN PRN Reason: Pain, Mild (Pain Scale 1-3) Atorvastatin Calcium (Atorvastatin Calcium 40 Mg Tablet) 40 mg PO BEDTIME [place] Calcium Carbonate (Calcium Carbonate 500 Mg Tablet) 500 mg PO BEDTIME [facility] Fluticasone Propionate (Fluticasone Propionate Nasal 16 Gm [place]) 1 spray NOSTRIL-B BID PRN PRN Reason: Allergic Symptoms Lidocaine (Lidocaine 4 % Patch Adh..Patch) 1 patch TRANSDERMA DAILY [facility]; Protocol Ondansetron HCl (Ondansetron Hcl 4 Mg/2 Ml Vial) 4 mg IVPUSH Q8H PRN PRN Reason: Nausea and Vomiting Oxycodone HCl (Oxycodone Hcl Immed Release 5 Mg Tablet) 5 mg PO Q6H PRN PRN Reason: Pain, Severe (Pain Scale 7-10) Senna (Sennosides 8.6 Mg Tablet) 17.2 mg PO BEDTIME PRN PRN Reason: Constipation Sodium Chloride (0.9 % Sodium Chloride Flush 3 Ml Syringe) [facility] Vitamin D (Cholecalciferol (Vitamin D3) 25 Mcg Tablet) 25 mcg PO BEDTIME [facility] Home Medications ?Medication ?Instructions ?Recorded ?Confirmed ?Last Taken ?Type atorvastatin 40 mg tablet 40 mg PO BEDTIME 12/14/23 12/14/23 Unknown History calcium carbonate 500 mg calcium 500 mg PO BEDTIME 12/14/23 12/14/23 Unknown History (1,250 mg) tablet cholecalciferol (vitamin D3) 25 25 mcg PO BEDTIME 12/14/23 12/14/23 Unknown History mcg (1,000 unit) tablet fluticasone propionate 50 1 spray intranasal BID PRN 12/14/23 12/14/23 Unknown History mcg/actuation nasal Allergic Symptoms spray,suspension Exam Height,Weight and Vital Signs: Height 5 ft Weight 65.4 kg Last Vital Signs Temp 95.3 F L 12/14/23 09:49 Pulse 62 12/14/23 09:49 Resp 14 12/14/23 09:49 BP 148/59 H 12/14/23 09:49 Pulse Ox 100 12/14/23 09:49 O2 Del Method Room Air 12/14/23 09:49 Pertinent Lab Results Pertinent Lab Results: Laboratory Tests 12/14/23 12/14/23 12/14/23 09:09 09:26 11:38 WBC 9.0 RBC 4.40 Hgb 13.2 Hct 39.3 MCV 89.3 MCH 30.0 MCHC 33.6 RDW 13.2 Plt Count 216 MPV 10.8 Immature Gran % (Auto) 0.2 Neut % (Auto) 71.0 Lymph % (Auto) 17.9 L [place] % (Auto) 8.5 Eos % (Auto) 1.6 Baso % (Auto) 0.8 Lymph # (Auto) 1.6 [place] # (Auto) 0.8 Eos # (Auto) 0.1 Baso # (Auto) 0.1 Abs Immat Gran (auto) 0.02 Absolute Neuts (auto) 6.4 Absolute Nucleated RBC 0.000 Nucleated RBC % (auto) 0.0 Whole Blood PT 11.9 Whole Blood INR 1.0 Sodium 138 Potassium 4.4 Chloride 109 H Carbon Dioxide 24 Anion Gap 9 L BUN 13 Creatinine 0.71 Estim Creat Clear Calc 63.9 Estimated GFR > 60 Random Glucose 129 H Calcium 9.0 Magnesium 1.9 Total Bilirubin 0.6 Direct Bilirubin 0.2 AST 19 ALT 17 Alkaline Phosphatase 82 Troponin I High Sens < 2.7 < 2.7 Total Protein 6.9 Albumin 3.5 COVID-19 (SUSAN) Negative COVID-19 Clin Com See Note Airway Mallampati Class: II TM Dist: <=3cm Neck ROM: Full Denture: Upper Loose/Missing/Broken Teeth: No Heart: rrr Lungs: cta Assessment and Plan Assessment Anesthesia Assessment: Anesthesia Plan Discussed and Chart Reviewed Final Anesthetic Review Family History of Problems with Anesthesia: No History of Problems with Anesthesia: No NPO: Yes ASA Class: II and Emergency Final Preanesthetic Review: Meds/Allgs Chart Reviewed, Consent Obtained/Reviewed and Anes Risks/Benef Reviewed Patient Risk: High Procedure Risk: High Anesthetic Plan Anesthetic Plan: MAC: Disposition: Standard PACU
--- NOTE | 2023-12-14 16:53 | P.OP_ITS ---
Operative Note Operative Note Date of Service: 12/14/23 Narrative: NAME OF PROCEDURE: ? 1.???Dual chamber?pacemaker?with [employer] 2.???Left upper extremity venogram ? INDICATION FOR PROCEDURE:??Syncope, Sinus pause, Description of Procedure:?Patient was identified brought to the [facility] trophysiology laboratory in a postabsorptive state.??The left pectoral region was prepped and draped in usual sterile fashion. Incision was made over the left pectoral region and pectoral subcutaneous pocket was made. Afterwards left axillary venous access was obtained using micropuncture needle and fluoroscopic guidance, a 7-[place] sheath was placed.??Right ventricular lead was placed in the right ventricular septum ?with good sensing and pacing thresholds.??The sheath was split and the lead was then anchored to the pectoral fascia with Ethibond suture.?? ? Afterwards left axillary venous access was obtained using micropuncture needle and fluoroscopic guidance, a 7-[place] sheath was placed.??Right atrial pacing lead was advanced and placed in the base of the right atrial appendage with good sensing and pacing thresholds.??The sheath was split and the lead was then anchored to the pectoral fascia with Ethibond suture.?? ? The subcutaneous pocket was made and the wound was irrigated with antibiotic solution.??The??leads were then connected to a?pacemaker?generator and placed in the pocket.??The wound was closed with 3 layers of absorbable sutures.?? Patient tolerated procedure well.??There were no complications. ? ? IMPRESSION:?? Successful?implantation?of Dual chamber?pacemaker? ? ? PLAN: ? 1.?Routine postprocedure monitoring. 2.?CXR today? 3.?Post operative Abx? 4. ???EKG today? 5. ???Interrogation of device POST OP INSTRUCTIONS 1. No heparin products for 48 hours 2. No shower 3 days 3. Do not remove dressing for 5 days 4. Restrict left arm movement for 6 weeks 5. Wound check in clinic in 2 weeks
[2023-12-14] MEDS: Atorvastatin Calcium 40 MG TABLET PO (21:48)
[2023-12-14] MEDS: Cholecalciferol (Vitamin D3) 25 MCG TABLET PO (21:49)
[2023-12-14] MEDS: 0.9 % Sodium Chloride Flush 3 ML SYRINGE IVFLUSH (21:50)
[2023-12-15] MEDS: ceFAZolin Sodium/Dextrose,Iso 2 GM/50 ML PIGGYBACK IV ×2 (00:13→08:33)
[2023-12-15 03:46] VITALS: BP 147/67; PULSE 83; RESP 18; TEMP 36.4; O2SAT 96
[2023-12-15 06:55] LABS: MANUAL DIFF FLAG NO
[2023-12-15 07:12] LABS: Basophils Percent Auto 0.2 % (0-2); Eosinophils Percent Auto 0.1 % (0-4); Hematocrit 37.2 % (37.0-47.0); Hemoglobin 12.5 g/dl (12.0-16.0); Imm Gran Abs Auto 0.06 X10*3/uL (0.00-0.03); Imm Gran Pct Auto 0.4 % (0.0-0.4); Lymphocytes Absolute Auto 1.4 X10*3/uL (1.2-4.9); Lymphocytes Percent Auto 10.3 % (20-40); Mean Corpuscular HGB Conc 33.6 g/dl (31.0-35.0); Mean Corpuscular Hemoglobin 29.7 pg (27.0-33.0); Mean Corpuscular Volume 88.4 fL (80.0-98.0); Monocytes Absolute Auto 1.3 X10*3/uL (0.1-1.2); Monocytes Percent Auto 9.5 % (2-11); Neutrophils Absolute Auto 10.7 x10*3/uL (2.0-8.3); Neutrophils Percent Auto 79.5 % (45-73); Platelet Count 248 X10*3/uL (160-400); Red Blood Count 4.21 X10*6/uL (4.20-5.50); Red Cell Distribution Width 13.5 % (11.0-16.0); White Blood Count 13.4 X10*3/uL (4.8-10.8)
[2023-12-15 07:42] LABS: Anion Gap 12 (12-20); Blood Urea Nitrogen 10 mg/dL (9-16); Calcium 10.2 mg/dL (8.4-10.2); Carbon Dioxide 26 mmol/L (22-29); Chloride 108 mmol/L (96-108); Creatinine Clr Calc Pharmacy 60.9; Estimated Glomerular Filt Rate > 60; Glucose Random 133 mg/dL (60-115); Potassium 3.8 mmol/L (3.3-5.1); Sodium 142 mmol/L (135-145)
[2023-12-15 08:00] VITALS: BP 133/55; PULSE 72; RESP 18; TEMP 36.7; O2SAT 98
[2023-12-15] MEDS: 0.9 % Sodium Chloride Flush 3 ML SYRINGE IVFLUSH (08:34)
[2023-12-15] MEDS: Acetaminophen 325 MG TABLET 650 MG PO (08:37)
--- NOTE | 2023-12-15 09:32 | MHC.CM.PN ---
IMM 12/14. Pt self-care, lives at home with who will transport her home at D/C. Pt states she has a HCP, copy requested. PCP: Dr. Monroe Meléndez
--- NOTE | 2023-12-15 09:52 | P.DS_ITS ---
DS: Providers Provider Date of Service: 12/15/23 Date of admission: 12/14/23 13:53 Primary care physician: Unknown Physician Consults: 12/14/23 12:32 Consult to Cardiology Stat Consulting Provider: [facility] [place] Cardiovascular Services Reason for consultation: syncope, sinus pauses Has provider been notified: Yes 12/14/23 14:09 Consult to Cardiology Routine Consulting Provider: [facility] [place] Cardi[facility] Services Reason for consultation: sinus pause Has provider been notified: Yes DS: Diagnosis Discharge Diagnosis (1) Syncope and collapse: Status: Acute (2) Sinus pause: Status: Acute (3) Acute neck pain: Status: Acute DS: Summary Hospital Course Hospital Course: HPI:68 year old female with history of hld and recurrent vasovagal syncope presented to the ED for evaluation of syncopal episode. Pt is accompanied by two sons and her , Refugio who is health care proxy. She reports she has been having intermittent severe right-sided neck pain with unknown injury. She states today the neck pain was so bad she develops severe headache, vomiting x2 and syncopized for several seconds around 7am today. This was unwitnessed. She has not on blood thinners. She does report she has history of syncopal episodes in the past that have typically been related to what the describes his dehydration. She does follow with Dr. Meléndez in Cardiology who has reported this as vasovagal syncope. She has not on any blood thinners and has no known cardiac history. She denies any diaphoresis, palpitations, dyspnea, or chest pain. On arrival, vital signs stable. Hematology studies unremarkable. Renal function baseline, electrolyte levels normal. Glucose 129. Hepatic function within normal limits. Troponin undetectable. Negative for COVID-19. Head CT negative for acute intracranial abnormality. CTA head/neck negative for evidence of vascular disease dissection but no significant stenosis or occlusion in the cervical or intracranial vasculature at the level of the [place]. 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 While in the ED, she did have a 9 second pause noted on quality assurance monitor. Electrolyt e levels again within normal limits. ED discussed case with cardiology who recommended admission for pacemaker. Plan for pacemaker performed by Dr. Aponte in later today. Hospital course: Patient was noted to have a 2nd sinus pause. Was admitted with cardiac monitoring. Dual-chamber pacemaker was placed by Dr. Aponte. Patient stable to be discharged with close follow-up as an outpatient. Narrowing of left vertebral artery canal seen on CTA head/neck> outpatient follow-up Status at Discharge Functional status at discharge: independent ambulation Overall status at discharge: patient is back to baseline Time Attestation Discharge Coordination Time (in mins): 35 minutes Quality: Safe Use of Opioids Does Pt have an Active Cancer Diagnosis on the Problem List?: No Quality: Stroke Does the patient have a stroke diagnosis?: No Physical Exam Vital Signs: Vital Signs: Last Vital Signs Temp 98.0 F 12/15/23 08:00 Pulse 72 12/15/23 08:00 Resp 18 12/15/23 08:00 BP 133/55 L 12/15/23 08:00 Pulse Ox 98 12/15/23 08:00 O2 Del Method Room Air 12/15/23 08:00 O2 Flow Rate 2 12/14/23 20:00 BMI result Body Mass Index 29.3 Middle-aged female lying in bed in no distress Neck supple, no JVD, pacemaker in place with clean surrounding site Regular rate and rhythm, S1-S2 heard Regular breath sounds bilaterally, no wheezing or crackles appreciated Abdomen soft nontender, no guarding, no rigidity Patient is awake, alert and oriented to self, place, time and person ; no focal motor deficit Psych: Normal mood No pedal edema DS: Data Data Completed and Pending Labs on day of discharge: Laboratory Results - last 24 hr 12/14/23 12/14/23 12/15/23 09:26 11:38 05:55 WBC 13.4 H RBC 4.21 Hgb 12.5 Hct 37.2 MCV 88.4 MCH 29.7 MCHC 33.6 RDW 13.5 Plt Count 248 MPV 11.0 Immature Gran % (Auto) 0.4 Neut % (Auto) 79.5 H Lymph % (Auto) 10.3 L [place] % (Auto) 9.5 Eos % (Auto) 0.1 Baso % (Auto) 0.2 Lymph # (Auto) 1.4 [place] # (Auto) 1.3 H Eos # (Auto) 0.0 Baso # (Auto) 0.0 Abs Immat Gran (auto) 0.06 H Absolute Neuts (auto) 10.7 H Absolute Nucleated RBC 0.000 Nucleated RBC % (auto) 0.0 Sodium 138 142 Potassium 4.4 3.8 Chloride 109 H 108 Carbon Dioxide 24 26 Anion Gap 9 L 12 BUN 13 10 Creatinine 0.71 0.76 Estim Creat Clear Calc 63.9 60.9 Estimated GFR > 60 > 60 Random Glucose 129 H 133 H Calcium 9.0 10.2 D Magnesium 1.9 Total Bilirubin 0.6 Direct Bilirubin 0.2 AST 19 ALT 17 Alkaline Phosphatase 82 Troponin I High Sens < 2.7 < 2.7 Total Protein 6.9 Albumin 3.5 COVID-19 (SUSAN) Negative COVID-19 Clin Com See Note Imaging Chest x-ray: Radiologist's impression: ITS Impressions Head CT 12/14/23 08:51 IMPRESSION: No acute intracranial pathology. Generalized atrophy and nonspecific periventricular white matter disease similar to 2015 exam. This critical result was discussed with Dr. Wallis at 909 hours on 12/14/2023. It was ascertained that the content and urgency of the report was understood at the time of direct communication. Head/Neck CTA 12/14/23 09:04 IMPRESSION: No evidence of a vascular dissection. No significant stenosis or occlusion in the cervical or intracranial vasculature at the level of the [place]. 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 Due to this developmental skull base anatomical variant, the left vertebral artery canal is fairly narrowed. Otherwise, the left vertebral artery opacifies normally at this level. Imaging findings reported to Dr. Mcpherson at 9:53 AM on 12/14/2023. Chest X-Ray 12/15/23 07:45 IMPRESSION: Pacer placed as described. No abnormalities noted. Discharge Plan Discharge Anticipated Discharge Date/Time: 12/15/23 09:49 Patient Disposition: Home, Self-Care Discharge Diagnosis: Cardiogenic syncope due to sinus pause Referrals: Marciano Narayan MD [Physician] - 2 Weeks Physician,Fabien J [Primary Care Provider] - 1 Week Discharge Medications: Continued atorvastatin 40 mg tablet 40 mg PO BEDTIME calcium carbonate 500 mg calcium (1,250 mg) Tablet 500 mg PO BEDTIME fluticasone propionate 50 mcg/actuation spray,suspension 1 spray intranasal BID PRN (Reason: Allergic Symptoms) cholecalciferol (vitamin D3) 25 mcg (1,000 unit) Tablet 25 mcg PO BEDTIME Discharge Orders: Discharge Order (Routine); Ordered 12/15/23 Ordered By: Lola Crabtree Diet: Advance to usual diet Activity on Discharge: As tolerated Stand Alone Forms: Patient Portal Discharge page Print Language: [place] Care Plan Goals: Follow-up with PCP within 1 week Follow-up with cardiology within 2 weeks Health Concerns: Sinus pause status post dual-chamber pacemaker Narrowing of left vertebral artery canal Plan of Treatment: 1. No heparin products for 48 hours 2. No shower 3 days 3. Do not remove dressing for 5 days 4. Restrict left arm movement for 6 weeks 5. Wound check in clinic in 2 weeks Assessment: As above
--- NOTE | 2023-12-15 10:27 | P.PNCA_ITS ---
Subjective Subjective Date of Service: 12/15/23 Principal diagnosis: Status post pacemaker for syncope and pauses Interval history: Patient has sinus rhythm. Feeling well. Blood pressure is stable. Denies any palpitations. Mild discomfort at the pacer site. No fever or chills. Pacemaker is working well. Review of Systems Review of Systems Yes all other systems are reviewed and are negative Physical Exam Vital Signs: Last Vital Signs Temp 98.0 F 12/15/23 08:00 Pulse 72 12/15/23 08:00 Resp 18 12/15/23 08:00 BP 133/55 L 12/15/23 08:00 Pulse Ox 98 12/15/23 08:00 O2 Del Method Room Air 12/15/23 08:00 O2 Flow Rate 2 12/14/23 20:00 BMI result Body Mass Index 29.3 Const General: cooperative, comfortable, no acute distress, alert and awake Nutritional Appearance: overweight Orientation/consciousness: patient oriented x3 HEENT Head: Yes normocephalic and Yes atraumatic Neck Neck: Yes trachea midline, Yes supple and Yes no JVD Chest Chest palpation & inspection: other (Pacer pocket is fine) Resp Effort & Inspection: normal respiratory effort Auscultation: clear to auscultation bilaterally Cardio Jugular venous distension: no JVD Palpation: normal PMI Rate: regular rate Rhythm: regular rhythm Heart sounds: S1 normal heart sound present, S2 normal heart sound present, no click, no gallops, no murmurs and no rubs GI Auscultation: normal bowel sounds Skin General skin exam: no rashes or lesions noted Neuro General: patient oriented x3 and no focal motor deficits Extrem General: Yes no clubbing, cyanosis or edema Psych Appearance: grossly normal Objective Labs and Meds 12/15/23 05:55 12/15/23 05:55 Lab results: Laboratory Results - last 24 hr 12/14/23 12/14/23 12/15/23 09:26 11:38 05:55 WBC 13.4 H RBC 4.21 Hgb 12.5 Hct 37.2 MCV 88.4 MCH 29.7 MCHC 33.6 RDW 13.5 Plt Count 248 MPV 11.0 Immature Gran % (Auto) 0.4 Neut % (Auto) 79.5 H Lymph % (Auto) 10.3 L [place] % (Auto) 9.5 Eos % (Auto) 0.1 Baso % (Auto) 0.2 Lymph # (Auto) 1.4 [place] # (Auto) 1.3 H Eos # (Auto) 0.0 Baso # (Auto) 0.0 Abs Immat Gran (auto) 0.06 H Absolute Neuts (auto) 10.7 H Absolute Nucleated RBC 0.000 Nucleated RBC % (auto) 0.0 Sodium 142 Potassium 3.8 Chloride 108 Carbon Dioxide 26 Anion Gap 12 BUN 10 Creatinine 0.76 Estim Creat Clear Calc 60.9 Estimated GFR > 60 Random Glucose 133 H Calcium 10.2 D Troponin I High Sens < 2.7 < 2.7 Imaging Radiologist's impression: Impressions Chest X-Ray 12/15/23 07:45 IMPRESSION: Pacer placed as described. No abnormalities noted. Progress Note: A&P Assessment and plan (1) Syncope and collapse: Status: Acute Assessment and Plan: Syncope appears to have significant cardio inhibitory vasovagal syncope. Also had sinus pauses. Patient status post dual-chamber pacemaker with rate drop response. Pacemaker is working well. All the questions of patient and patient's sons were answered at bedside. Will set up for follow-up as outpatient. She has atherosclerotic aortic disease. Narrowing of the left vertebral artery due to anatomical reasons not vertebral artery stenosis. Low- dose aspirin is fine. Outpatient echocardiogram will be pursued Thank you for allowing us to partake in her care Time Spent With Patient Time: Total time managing care of this patient today ____ minutes. Progress Note: Quality Stroke Does the patient have a stroke diagnosis?: No Procedures Date of Service Date of Service: 12/15/23
--- NOTE | 2023-12-15 10:43 | MHC.CM.PN ---
Pt is medically cleared for D/C home self-care, pts to transport her home.
--- NOTE | 2023-12-15 11:35 | HO.POSTANES ---
Post Anesthesia Evaluation Post Anesthesia Evaluation Date of Service: 12/14/23 Vital Signs: Vital Signs Temp Pulse Resp BP Pulse Ox O2 Del Method 12/15/23 08:00 98.0 F 72 18 133/55 L 98 Room Air 12/15/23 03:46 97.6 F 83 18 147/67 H 96 Room Air 12/14/23 23:40 98.3 F 92 20 129/60 95 Room Air Anesthesia: Monitored Mental Status: Awake Pain Control: Satisfactory Nausea/Vomiting: None Hydration: Adequate Anesthesia-Related Issues: No Anes. Related Issues
== END 2023-12-15 11:28 | disposition home or self-care (01) | DRG 244 ==
LOC: HO.ED 14:19 → HO.EDOVER 14:21 → HO.IMC 18:28
PROVIDERS: Internal Medicine Cardiovascular Disease; Admitting Provider Physician Assistant; Emergency Provider Emergency Medicine; PCP Internal Medicine; Visit Provider Student in an Organized Health Care Education/Training Program
PROC: 0JH606Z Insertion of Pacemaker, Dual Chamber into Chest Subcutaneous Tissue and Fascia, Open Approach (ICD-10-PCS; principal; 2023-12-14 14:30)
DX: I49.5 Sick sinus syndrome (principal); E78.5 Hyperlipidemia, unspecified; M54.2 Cervicalgia; Z20.822 Contact with and (suspected) exposure to COVID-19; Z79.899 Other long term (current) drug therapy
CPT/HCPCS: 36415; 70450; 70496; 70498; 71046; 80048; 80076; 83735; 84484; 85025; 85610; 87635; 93005; 99285; A4364; C1785; C1892; C1894; C1898; J0131; J0690; J1100; J1885; J2060; J2250; J2270; J2371; J2405; J2704; J2765; J3010; J3370; Q9967

== ENCOUNTER → 2023-12-14 08:22 | Outpatient (BNV) | payer MEDICARE, SELFPAY | PROVIDERS: Emergency Provider Emergency Medicine; Visit Provider Internal Medicine Cardiovascular Disease | DX: R55 Syncope and collapse (principal) | CPT/HCPCS: 93010 ==

== ENCOUNTER → 2023-12-14 08:31 | Outpatient (BNV) | payer MEDICARE, SELFPAY | PROVIDERS: Emergency Provider Emergency Medicine; Visit Provider Internal Medicine Cardiovascular Disease | DX: R55 Syncope and collapse (principal) | CPT/HCPCS: 99222; 99233 ==

== ENCOUNTER → 2023-12-14 13:53 | Outpatient (BNV) | payer MEDICARE, SELFPAY | PROVIDERS: Admitting Provider Physician Assistant; Emergency Provider Emergency Medicine; Visit Provider Physician Assistant | DX: R55 Syncope and collapse (principal); I45.5 Other specified heart block; M54.2 Cervicalgia | CPT/HCPCS: 99223; 99239 ==

== ENCOUNTER → 2023-12-19 12:43 | Outpatient (REF) | payer MEDICARE, SELFPAY ==
--- NOTE | 2023-12-19 12:46 | CA_ITS ---
Transthoracic Echocardiogram Patient (Last, First, Middle): Adelaida Rosas C Gender: Female Date of : 1955 Age: 68 Procedure Date: 12/19/2023 Procedure Type: Transthoracic Echocardiogram Location: OP Height: 152.4 cm Weight: 66.23 kg BSA: 1.63 m2 Heart Rate: 67 bpm BP: 185 / 85 mmHg Skull Splitter: ROXIE Referring MD: Marciano Narayan MD Symptoms: R55 - Syncope and collapse Study Quality: Fair ECG Rhythm: Sinus Conclusions: - The left ventricular systolic function is normal. The calculated ejection fraction is 61% by biplane method. - There is mild septal asymmetric hypertrophy. - No obvious valvular pathology seen on this study. Findings Left Ventricle Normal left ventricular cavity size. The left ventricular systolic function is normal. The calculated ejection fraction is 61% by biplane method. There is no evidence of regional wall motion abnormalities. Diastolic function is normal for age. There is mild septal asymmetric hypertrophy. LV peak GLS 17.7%. Right Ventricle The right ventricle was not well visualized. Normal right ventricular cavity size. There is low normal right ventricular systolic function. Atria Both atria are normal in size. Aortic Valve There is a normal trileaflet aortic valve. There is no aortic valve stenosis. There is no aortic valve regurgitation. Mitral Valve The mitral valve appears normal. There is no mitral valve regurgitation. There is no mitral valve stenosis. Pulmonic Valve The pulmonic valve is likely normal. Tricuspid Valve There is trace tricuspid valve regurgitation. There is no evidence of pulmonary hypertension. Great Vessels The asc aorta is normal in size. Venous The inferior vena cava is normal in size and collapses greater than 50% with inspiration. Pericardium/Pleural There is no evidence of pericardial effusion. Prior Study Comparison No significant change compared to prior study dated: 02/06/2019. Recommendations, Care & Conclusions No obvious valvular pathology seen on this study. Measurements 2D Linear Measurements IVSd: 1.29 0.6-0.9/0.6-1.0 cm LVIDd: 3.78 3.9-5.3/4.2-5.9 cm LVIDd Index: 2.32 2.4-3.2/2.2-3.1 cm/m2 LVIDs: 2.43 2.0-3.6 cm LVPWd: 1.03 0.7-1.1 cm LA Diam: 3.30 2.7-3.8/3.0-4.0 cm LAIDs Index: 2.02 1.5-2.3 cm/m2 LV Mass: 179.89 67-162/88-224 g LV Mass Index: 110.36 43-95/49-115 g/m2 LVOT Diam: 1.90 3.0+(-)1.3 cm 2D Systolic Function EF 4C: 60.70 >55% EF 2C: 62.20 >55% EF BiP: 60.60 >55% Mitral Valve MV Pk E: 0.68 MV PK A: 0.79 MV Decel Time: 292.00 E/A: 0.90 E'Lateral: 9.03 E'Medial: 5.55 E/E' Med: 12.20 E/E' Lat: 7.50 PHT: 86.00 MVA PHT: 2.56 Decel Lares: 2.32 Aortic Valve AoV Pk Issa: 1.22 AoV Mn Issa: 0.86 AoV VTI: 0.29 AoV Pk Grad: 6.00 Aov Mn Grad: 3.00 ELIEL Cont.VTI: 2.48 LVOT LVOT Pk Issa: 1.11 LVOT Mn Issa: 0.78 LVOT VTI: 0.26 LVOT Pk Grad: 5.00 LVOT Mn Grad: 3.00 LVOT Diam: 1.90 LVOT Area: 2.84 Diastolic Function MV Pk E: 0.68 MV Pk A: 0.79 E/A: 0.90 E'Medial: 5.55 E/E' Med: 12.20 E' Laterial: 9.03 E/E' Lat: 7.50 Right Ventricle TAPSE (mm): 19.50 TVS' Issa: 8.16 Tricuspid Valve TR Pk Issa: 1.83 TR Pk Grad: 13.00 RA Press: 3.00 RVSP: 16.00 Great Vessels Aorta Sinus of Valsalva: 3.20 2.0-3.5 cm Ao Asc: 3.30 2.1-3.4 cm Pulmonary Valve PV Pk Issa: 1.18 Peak PV Grad: 6.00 Updated in Other Vendor System with Status of Final Vidal العراقي MD electronically signed on 12/20/2023 11:32:55 AM with status of Final
== END ==
LOC: HO.CARD 12:43
PROVIDERS: PCP Internal Medicine; Visit Provider Internal Medicine Cardiovascular Disease
DX: R55 Syncope and collapse (principal); I45.5 Other specified heart block
CPT/HCPCS: 93306; 93356

== ENCOUNTER → 2023-12-19 12:46 | Outpatient (BNV) | payer MEDICARE, SELFPAY | PROVIDERS: PCP Internal Medicine; Visit Provider Internal Medicine | DX: I42.2 Other hypertrophic cardiomyopathy (principal) | CPT/HCPCS: 93306; 93356 ==

== ENCOUNTER 2023-12-29 13:34 | Outpatient (AMB) | payer MEDICARE, SELFPAY ==
[2023-12-29 14:06] VITALS: BP 120/70; PULSE 68; BMI 28.8
--- NOTE | 2023-12-29 14:06 | A.OFFVIS_ITS ---
Vital Signs 12/29/23 14:06 Height 5 ft Weight 147 lb 4.301 oz BMI 28.8 BP 120/70 Blood Pressure Location Rt brachial Position Sitting Pulse 68 Intake Visit Reasons: F/U ECHO Allergies No Known Allergies Allergy (Unverified 12/14/23 08:21) HPI Comments Details: 68-year-old female presents today for a follow-up after PPM placement. She had a syncopal episode which brought her to the ED for evaluation. She denies any swelling, odor, pain, drainage, fevers, or chills. [facility] Medical History Syncope and collapse Vasovagal syncope Hyperlipidemia Surgical History (Updated 12/30/23 @ 11:12 by Hellen White NP) S/P placement of cardiac pacemaker Social History Household Members: Spouse Housing: House Do you presently have visiting nurse or other home services: No Alcohol intake: never Patient Tobacco Use Status: Never used Tobacco service: No Review of Systems Const Denies weakness ENT Denies dizziness Card Denies chest pain, Denies chest pain with activity, Denies syncope, Denies rapid heart rate, Denies pedal edema, Denies edema, Denies leg edema, Denies lightheadedness, Denies palpitations, Denies dyspnea, Denies dyspnea on exertion and Denies orthopnea Resp Denies cough, Denies dyspnea and Denies dyspnea on exertion GI Denies hematochezia and Denies change in stool character Musc Denies abnormal gait, Denies muscle cramps, Denies muscle weakness, Denies numbness, Denies radiating pain into limb and Denies tingling Neuro Denies abnormal gait, Denies dizziness, Denies syncope, Denies numbness, Denies tingling and Denies weakness Endo Denies palpitations Physical Exam Vital Signs: Last Vital Signs Pulse 68 12/29/23 14:06 BP 120/70 12/29/23 14:06 BMI result Body Mass Index 28.8 Const General: healthy appearing and no acute distress Orientation/consciousness: patient oriented x3 HEENT Head: Yes normal to inspection Eyes General: appearance normal, both eyes and all related structures Neck Neck: Yes normal visual inspection Chest Chest palpation & inspection: normal inspection of the chest Resp Effort & Inspection: normal respiratory effort Auscultation: clear to auscultation bilaterally Cardio Jugular venous distension: no JVD Palpation: normal PMI Rate: regular rate Rhythm: regular rhythm Heart sounds: S1 normal heart sound present, S2 normal heart sound present, no click, no gallops, no murmurs and no rubs GI Inspection: Yes normal to inspection Palpation (GI): Soft to palpation Skin General skin exam: no rashes or lesions noted Neuro General: patient oriented x3 Extrem General: Yes normal to inspection Psych Appearance: grossly normal Assessment & Plan Assessment & Plan (1) S/P placement of cardiac pacemaker: Code(s): Z95.0 - Presence of cardiac pacemaker Category: Surgical Plan: Post dual chamber pacemaker placement of Medtronic device on 12/14/23. She is currently connected on remote. She will meet in one month for interrogation. Site healing appropriately. No swelling, redness, odor, or drainage noted. Dressing removed and glue intact. Coding Level of Care Code Est Pt Level 3 (04427) Diagnoses S/P placement of cardiac pacemaker Z95.0
== END 2023-12-29 14:41 | disposition home or self-care (01) ==
PROVIDERS: Visit Provider Nurse Practitioner
DX: R55 Syncope and collapse (principal); Z95.0 Presence of cardiac pacemaker; Z09 Encounter for follow-up examination after completed treatment for conditions other than malignant neoplasm
CPT/HCPCS: 99213

== ENCOUNTER → 2023-12-29 13:34 | Outpatient (BNVA) | payer MEDICARE, SELFPAY | PROVIDERS: Visit Provider Nurse Practitioner | DX: Z95.0 Presence of cardiac pacemaker (principal) | CPT/HCPCS: 99212 ==

== ENCOUNTER → 2024-01-09 23:59 | Outpatient (BNV) | payer MEDICARE, SELFPAY ==
--- NOTE | 2024-01-10 15:09 | A.OFFVIS_ITS ---
Intake Visit Reasons: Remote device check- Medtronic Allergies No Known Allergies Allergy (Unverified 12/14/23 08:21) [facility] Medical History Syncope and collapse Vasovagal syncope Hyperlipidemia Surgical History (Updated 12/30/23 @ 11:12 by Hellen White NP) S/P placement of cardiac pacemaker Social History Household Members: Spouse Housing: House Do you presently have visiting nurse or other home services: No Alcohol intake: never Patient Tobacco Use Status: Never used Tobacco service: No Office Procedures Cardiac Device Check Cardiac Device Check Details: Remote pacemaker report generated 01/08/2023. Pacemaker function is adequate. [id number] Cardiac Device Interrogation, pacemaker Procedure code (CPT) selection complete Assessment & Plan Assessment & Plan (1) S/P placement of cardiac pacemaker: Code(s): Z95.0 - Presence of cardiac pacemaker Category: Surgical Plan: See above Coding Level of Care Code Procedure Only Diagnoses S/P placement of cardiac pacemaker Z95.0 CPT Codes Cardiac Device Check - Cardiac Device 12: [id number] Cardiac Device Interrogation, pacemaker ([id number])
== END ==
PROVIDERS: Visit Provider Internal Medicine Cardiovascular Disease
DX: Z45.018 Encounter for adjustment and management of other part of cardiac pacemaker (principal)
CPT/HCPCS: 93294

== ENCOUNTER 2024-02-21 11:55 | Outpatient (REF) | payer MEDICARE, SELFPAY ==
[2024-02-21 11:59] LABS: MANUAL DIFF FLAG NO
[2024-02-21 12:24] LABS: Basophils Absolute Auto 0.1 X10*3/uL (0.0-0.2); Basophils Percent Auto 1.5 % (0-2); Eosinophils Absolute Auto 0.3 X10*3/uL (0.0-0.4); Eosinophils Percent Auto 4.8 % (0-4); Hematocrit 39.3 % (37.0-47.0); Hemoglobin 12.9 g/dl (12.0-16.0); Imm Gran Abs Auto 0.01 X10*3/uL (0.00-0.03); Imm Gran Pct Auto 0.2 % (0.0-0.4); Lymphocytes Absolute Auto 2.1 X10*3/uL (1.2-4.9); Lymphocytes Percent Auto 34.6 % (20-40); Mean Corpuscular HGB Conc 32.8 g/dl (31.0-35.0); Mean Corpuscular Hemoglobin 30.4 pg (27.0-33.0); Mean Corpuscular Volume 92.5 fL (80.0-98.0); Mean Platelet Volume 11.3 fL (9.4-12.3); Monocytes Absolute Auto 0.5 X10*3/uL (0.1-1.2); Monocytes Percent Auto 8.9 % (2-11); Platelet Count 221 X10*3/uL (160-400); Red Blood Count 4.25 X10*6/uL (4.20-5.50); Red Cell Distribution Width 13.2 % (11.0-16.0); White Blood Count 6.1 X10*3/uL (4.8-10.8)
[2024-02-21 12:30] LABS: Estimated Average Glucose 114 mg/dL; Hemoglobin A1c % 5.6 % (<6.0)
[2024-02-21 12:53] LABS: Alanine Aminotransferase 48 U/L (0-31); Albumin Level 3.7 g/dL (3.5-5.0); Alkaline Phosphatase 117 U/L (39-117); Anion Gap 12 (12-20); Aspartate Amino Transferase 26 U/L (5-31); Bilirubin Direct 0.2 mg/dL (0.0-0.5); Bilirubin Total 0.6 mg/dL (0.0-1.0); Blood Urea Nitrogen 10 mg/dL (9-16); Calcium 9.9 mg/dL (8.4-10.2); Carbon Dioxide 27 mmol/L (22-29); Chloride 109 mmol/L (96-108); Cholesterol 141 mg/dL (<200); Estimated Glomerular Filt Rate > 60; Glucose Random 97 mg/dL (60-115); HDL Cholesterol 64 mg/dL (>40); LDL Cholesterol Calculated 63 mg/dL (<100); Potassium 4.4 mmol/L (3.3-5.1); Sodium 144 mmol/L (135-145); Total Protein 6.9 g/dL (6.5-8.0); Triglycerides 73 mg/dL (<150)
== END 2024-02-21 11:56 | disposition home or self-care (01) ==
LOC: HO.LNP 11:55
PROVIDERS: Visit Provider Internal Medicine
DX: R73.09 Other abnormal glucose (principal); R79.89 Other specified abnormal findings of blood chemistry; E55.9 Vitamin D deficiency, unspecified
CPT/HCPCS: 80053; 80061; 82248; 82306; 83036; 85025

== ENCOUNTER 2024-02-22 10:26 | Outpatient (AMB) | payer MEDICARE, SELFPAY ==
[2024-02-22 10:47] VITALS: BP 126/60; PULSE 70; BMI 29.4
--- NOTE | 2024-02-22 10:47 | MHC.OFFVIS ---
Vital Signs 02/22/24 10:47 Height 5 ft Weight 150 lb 12.739 oz BMI 29.4 BP 126/60 Blood Pressure Location Lt brachial Position Sitting Pulse 70 Pulse Source Pulse Oximeter Intake Visit Reasons: 1 m follow up/ device ck Intake Note: 1mo f/u device check. Pt feeling good. 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 However she also continued to have sinus pauses on the monitor while being admitted despite not having any other symptoms. Underwent a dual-chamber pacemaker since then has had no recurrent syncopal episodes. Comes for pacemaker evaluation. No symptoms. She is fairly very active. Denies any exertional chest pain or shortness of breath. Denies any heart failure symptoms. Denies any prolonged palpitation irregular heartbeat. [facility] Medical History (Updated 02/22/24 @ 11:18 by Marciano Narayan MD) Syncope and collapse Vasovagal syncope Hyperlipidemia Surgical History (Updated 02/22/24 @ 11:18 by Marciano Narayan MD) S/P placement of cardiac pacemaker Social History Household Members: Spouse Housing: House Do you presently have visiting nurse or other home services: No Alcohol intake: never Patient Tobacco Use Status: Never used Tobacco service: No Review of Systems Const Denies chills, Denies fatigue, Denies fever(s), Denies weight gain and Denies weight loss Card Denies chest pain, Denies leg edema, Denies lightheadedness, Denies palpitations, Denies dyspnea on exertion and Denies orthopnea Resp Denies cough and Denies dyspnea on exertion GI Reports melena, Denies hematochezia and Denies change in stool character Musc Denies muscle weakness and Denies radiating pain into limb Endo Denies fatigue and Denies palpitations Physical Exam Vital Signs: Last Vital Signs Pulse 70 02/22/24 10:47 BP 126/60 02/22/24 10:47 BMI result Body Mass Index 29.4 Const General: healthy appearing and no acute distress Orientation/consciousness: patient oriented x3 HEENT Head: Yes normal to inspection Eyes General: appearance normal, both eyes and all related structures Neck Neck: Yes normal visual inspection Chest Chest palpation & inspection: normal inspection of the chest Resp Effort & Inspection: normal respiratory effort Auscultation: clear to auscultation bilaterally Cardio Jugular venous distension: no JVD Palpation: normal PMI Rate: regular rate Rhythm: regular rhythm Heart sounds: S1 normal heart sound present, S2 normal heart sound present, no click, no gallops, no murmurs and no rubs GI Inspection: Yes normal to inspection Palpation (GI): Soft to palpation Skin General skin exam: no rashes or lesions noted Neuro General: patient oriented x3 Extrem General: Yes normal to inspection Psych Appearance: grossly normal Office Procedures Cardiac Device Check Cardiac Device Check Details: Dual-chamber [employer] pacemaker in place. Programmed in MVP mode with rate drop response. Rate was reprogrammed to 55 beats per minute. Atrial and ventricular pacing thresholds excellent and reprogrammed to enhance battery life. Atrial ventricular sensing was adequate. Pacing lead impedance is stable. No arrhythmias detected. Atrial pacing 25% of the time. Battery life was at 15 years [id number] Cardiac Device Check, pacemaker dual lead Procedure code (CPT) selection complete Assessment & Plan Assessment & Plan (1) Syncope and collapse: Code(s): R55 - Syncope and collapse Category: Medical Plan: Admission with syncope after significant vomiting episode suspected vasovagal syncope with persistent with significant pause underwent a dual-chamber pacemaker. Pacemaker is programmed with rate drop response which she is using significantly. Pacemaker was reprogrammed. She has not had any recurrent syncopal episodes. Mechanism of pacemaker function was discussed with her. Will follow remotely every 3 months and follow up in the clinic 1 year's time. Follow up in the clinic in 1 year's time, sooner p.r.n.. Thank you for allowing me to partake in her care Coding Level of Care Code Est Pt Level 3 (00981) Diagnoses Syncope and collapse R55 CPT Codes Cardiac Device Check - Cardiac Device 2: 65268-RO Cardiac Device Check, pacemaker dual lead ([id number])
== END 2024-02-22 11:05 | disposition home or self-care (01) ==
PROVIDERS: Visit Provider Internal Medicine Cardiovascular Disease
DX: R55 Syncope and collapse (principal); Z95.0 Presence of cardiac pacemaker
CPT/HCPCS: 93280; 99213

== ENCOUNTER → 2024-02-22 10:26 | Outpatient (BNVA) | payer MEDICARE, SELFPAY | PROVIDERS: Visit Provider Internal Medicine Cardiovascular Disease | DX: R55 Syncope and collapse (principal); Z45.018 Encounter for adjustment and management of other part of cardiac pacemaker | CPT/HCPCS: 93280; 99212 ==

== ENCOUNTER 2024-03-01 15:43 | Outpatient (REF) | payer MEDICARE, SELFPAY ==
[2024-03-01 15:57] LABS: Bacteria Urine None Seen (None Seen); Hyaline Casts Urine 0-2 /LPF (0-2); RBC Urine 0-2 /HPF (0-2); Squamous Epithelial Cell Urine 0-2 /HPF (0-2); WBC Urine 0-5 /HPF (0-5)
[2024-03-01 16:10] LABS: Appearance Urine Clear; Color Urine Yellow; Glucose Urine UA Negative (Negative); Leukocyte Esterase Urine Negative (Negative); Nitrite Urine Negative (Negative); PH 5.5 (5.0-9.0); Urine Blood Negative (Negative); Urine Ketones Trace mg/dL (Negative); Urine Protein Negative (Neg-Trace)
[2024-03-01 17:29] LABS: Creatinine Urine 100.35 mg/dL; Microalbum/Creatinine Ratio Ur 4.9 ug/mg cr (<30)
== END 2024-03-01 15:44 | disposition home or self-care (01) ==
LOC: HO.LNP 15:43
PROVIDERS: Visit Provider Internal Medicine
DX: R73.09 Other abnormal glucose (principal); Z87.448 Personal history of other diseases of urinary system; E78.00 Pure hypercholesterolemia, unspecified
CPT/HCPCS: 81001; 82043; 82570

== ENCOUNTER → 2024-04-08 23:59 | Outpatient (BNV) | payer MEDICARE, SELFPAY ==
--- NOTE | 2024-04-10 14:50 | MHC.OFFVIS ---
Intake Visit Reasons: Remote device check- [employer] Allergies No Known Allergies Allergy (Unverified 12/14/23 08:21) PFSH Medical History (Updated 02/22/24 @ 11:18 by Marciano Narayan MD) Syncope and collapse Vasovagal syncope Hyperlipidemia Surgical History (Updated 02/22/24 @ 11:18 by Marciano Narayan MD) S/P placement of cardiac pacemaker Social History Household Members: Spouse Housing: House Do you presently have visiting nurse or other home services: No Alcohol intake: never Patient Tobacco Use Status: Never used Tobacco service: No Office Procedures Cardiac Device Check Cardiac Device Check Details: Remote pacemaker report generated 04/08/2024. Pacemaker function is adequate [id number] Cardiac Device Interrogation, pacemaker Procedure code (CPT) selection complete Assessment & Plan Assessment & Plan (1) Cardiac pacemaker in situ: Code(s): Z95.0 - Presence of cardiac pacemaker Category: Medical Plan: See above Coding Level of Care Code Procedure Only Diagnoses Cardiac pacemaker in situ Z95.0 CPT Codes Cardiac Device Check - Cardiac Device 12: [id number] Cardiac Device Interrogation, pacemaker ([id number])
== END ==
PROVIDERS: Visit Provider Internal Medicine Cardiovascular Disease
DX: Z45.018 Encounter for adjustment and management of other part of cardiac pacemaker (principal)
CPT/HCPCS: 93294

== ENCOUNTER 2024-06-06 07:46 | Outpatient (REF) | payer MEDICARE, SELFPAY ==
--- NOTE | ~2024-06-06 | MM_ITS ---
EXAMINATION: MM SCREENING DIGITAL BREAST TOMOSYNTHESIS, BILATERAL CLINICAL INFORMATION: Screening. Asymptomatic. COMPARISON: Mammography: Comparison is made with available priors TECHNIQUE: Digital breast mammography with tomosynthesis is performed in both the craniocaudal and mediolateral oblique views along with computer-aided detection (CAD). FINDINGS: There are scattered areas of fibroglandular density (ACR BI-RADS breast composition Category b). There are no significant masses, abnormal calcifications, or other abnormalities. MM/MM tomosynthesis screening BI IMPRESSION: No mammographic evidence of malignancy. ASSESSMENT: BI-RADS BI-RADS 1 - Negative RECOMMENDATION: Routine annual mammography screening. 1 year F/U This examination should not preclude the clinical evaluation of a suspicious palpable abnormality. This patient's information was entered into a reminder system with a target due date for their next mammogram. Electronically signed by: Joann Garza DO 06/18/2024 05:28 PM EDT
== END 2024-06-06 07:47 | disposition home or self-care (01) ==
LOC: HO.MAMMO 07:46
PROVIDERS: PCP Internal Medicine; Visit Provider Internal Medicine
DX: Z12.31 Encounter for screening mammogram for malignant neoplasm of breast (principal)
CPT/HCPCS: 77063; 77067

== ENCOUNTER → 2024-06-06 08:15 | Outpatient (BNV) | payer MEDICARE, SELFPAY | PROVIDERS: PCP Internal Medicine; Visit Provider Internal Medicine | DX: Z12.31 Encounter for screening mammogram for malignant neoplasm of breast (principal) | CPT/HCPCS: 77063; 77067 ==

== ENCOUNTER 2025-02-26 10:22 | Outpatient (REF) | payer MEDICARE, SELFPAY ==
--- OUTSIDE RECORDS SUMMARY | 2024-11-05 06:29 | XMS_ITS ---
Author Organization Monroe Meléndez MD Address [address] [place] [phone] Care Team Providers Care Skip Tender Name Role Phone Monroe Meléndez Primary Care Provider REASON FOR VISIT HCC Risk Codes 03/05 Encounters Encounter Location Date Provider Diagnosis Monroe Meléndez MD 10 [facility] [address] [place] [phone] 11/05/2024 Monroe Meléndez Plan Of Treatment Next Appt Details Provider Name:Mornoe Hightower ier, 03/05/2025 11:00:00 AM, 10 [facility], [address] [place] [address], [phone], Progress Notes * Oscar WOODWARDOB:1955 ([age] yo F)Acc No.[id number]:11/05/2024 Patient: Dorian Adelaida DAVID :1955 A ge:69 Y S ex:Female Address:[address] [place] [phone] * true * Date: Generated for Printi ng/Faxing/eTransmitting on: 0 02/26/2025 11:14 AM EDT
[2025-02-26 10:26] LABS: MANUAL DIFF FLAG NO
[2025-02-26 10:32] LABS: Appearance Urine Clear; Glucose Urine UA Negative (Negative); Hematocrit 39.8 % (37.0-47.0); Hemoglobin 13.3 g/dl (12.0-16.0); Imm Gran Abs Auto 0.01 X10*3/uL (0.00-0.03); Imm Gran Pct Auto 0.2 % (0.0-0.4); Lymphocytes Absolute Auto 1.9 X10*3/uL (1.2-4.9); Mean Corpuscular HGB Conc 33.4 g/dl (31.0-35.0); Mean Corpuscular Hemoglobin 30.2 pg (27.0-33.0); Mean Corpuscular Volume 90.2 fL (80.0-98.0); NRBC Abs Auto 0.000 X10*3/uL (0.0-0.012); NRBC Pct Auto 0.0 /100WBC (0.0-0.2); PH 6.5 (5.0-9.0); Platelet Count 231 X10*3/uL (160-400); Red Blood Count 4.41 X10*6/uL (4.20-5.50); Specific Gravity - Urine 1.015 (1.005-1.025); UMIC TRIGGER UACC YES; White Blood Count 6.2 X10*3/uL (4.8-10.8)
[2025-02-26 10:41] LABS: Hemoglobin A1C 136.9180 umol/L; Total Hemoglobin (HGBA1C) 3488.7700 umol/L
[2025-02-26 10:44] LABS: UACC Culture Trigger YES
[2025-02-26 11:03] LABS: Alanine Aminotransferase 21 U/L (0-31); Albumin Level 4.0 g/dL (3.5-5.0); Alkaline Phosphatase 87 U/L (39-117); Anion Gap 9 (12-20); Aspartate Amino Transferase 24 U/L (5-31); Blood Urea Nitrogen 13 mg/dL (9-16); Calcium 9.3 mg/dL (8.4-10.2); Carbon Dioxide 27 mmol/L (22-29); Chloride 108 mmol/L (96-108); Cholesterol 148 mg/dL (<200); Estimated Glomerular Filt Rate > 60; HDL Cholesterol 62 mg/dL (>40); Potassium 4.2 mmol/L (3.3-5.1); Sodium 140 mmol/L (135-145); Total Protein 7.1 g/dL (6.5-8.0); Triglycerides 90 mg/dL (<150)
--- OUTSIDE RECORDS SUMMARY | 2025-02-26 11:14 | XMS_ITS | Patient Health Record ---
Author Organization [facility] Address [address] [place] [address] Care Team Providers Care Bookkeeping Manager Name Role Phone Monroe Meléndez MD Primary Care Provider German Charlton Unavailable [phone] Reason For Referral No Information Medications Medication SIG (Take, Route, Fr equency, Duration) Notes Start Date End Date Status Hyoscyamine 0.125 mg 1 TAB Sublingual Active Omeprazole 20 MG 1 capsule Orally Onc e a day/ NEEDED Active Problems Problem Type SNOMED Code ICD Code Onset Dates Problem Status W/U Status Risk Notes Problem 692749512 Encounter for screening for malignant neoplasm of colon (Z12.11) Active confirmed Problem Encounter for screening for malignant neoplasm of rectum (Z12.12) Active confirmed Problem [id number] Gastroesophageal reflux disease, esophagitis presence not specified (K21.9) Active confirmed Plan Of Treatment Pending Test Test Name Order Date GI BIOPSY 06/23/2016 Future Test Test Name Order Date UPPER GI ENDOSCOPY 04/06/2016 COLONOSCOPY 04/06/2016 Insurance Providers Payer Name Payer Address Payer Phone Subscriber Number Group Number Insured Name Patient Relationship to Insured Coverage Start Date Coverage End Date [facility] [employer] [facility] [address] [place] [address] [id number] TAMAR WOODWARD Self - patient is the insured Medical (General) History Medical History History ICD Code Negative screening colonosocpy 01-12-2007 --diverticulosis History of infectious colitis--[place] a History of elevated liver function tests --neg. w/u in 2006 Denies NM,DM,CVA,Lung disease,renal dise ase Surgical History Surgery Date(Month/Year) Right ankle fusion
== END 2025-02-26 10:23 | disposition home or self-care (01) ==
LOC: HO.LNP 10:22
PROVIDERS: Visit Provider Internal Medicine
DX: Z00.00 Encounter for general adult medical examination without abnormal findings (principal); E78.00 Pure hypercholesterolemia, unspecified; E55.9 Vitamin D deficiency, unspecified; R73.03 Prediabetes
CPT/HCPCS: 80053; 80061; 81001; 82043; 82306; 82570; 83036; 85025; 87086

== ENCOUNTER 2025-03-05 09:16 | Outpatient (AMB) | payer MEDICARE, SELFPAY ==
[2025-03-05 09:45] VITALS: BP 120/76; PULSE 71; BMI 30.1
--- NOTE | 2025-03-05 09:45 | A.OFFVIS_ITS ---
Vital Signs 03/05/25 09:45 Height 5 ft Weight 154 lb 5.177 oz BMI 30.1 BP 120/76 Blood Pressure Location Lt brachial Position Sitting Pulse 71 Intake Visit Reasons: 1 yr f/up Intake Note: 1 year follow-up with ekg c/o little pressure at times Special Investigation Unit Investigator Required: No Allergies No Known Allergies Allergy (Unverified 12/14/23 08:21) Medication List - Last Reconciled 03/05/25 by Marciano Narayan MD aspirin 81 mg PO DAILY atorvastatin 40 mg PO BEDTIME calcium carbonate 500 mg PO BEDTIME cholecalciferol (vitamin D3) 25 mcg PO BEDTIME fluticasone propionate 50 mcg/actuation 1 spray intranasal BID PRN HPI Comments Details: Adelaida comes for follow-up. She has not had any syncopal episode in the last year. She has been very active in the last few months. No exertional chest pain or shortness of breath. She occasionally feels lightheaded when she moves her head around more feeling of the world going around. She denies any orthostatic lightheadedness. Drinks enough fluid. Denies any prolonged palpitation irregular heartbeat. Denies any heart failure symptoms. ON LICENSE OF [facility] Medical History Syncope and collapse Vasovagal syncope Hyperlipidemia Surgical History S/P placement of cardiac pacemaker Social History Household Members: Spouse Housing: House Do you presently have visiting nurse or other home services: No Alcohol intake: never Patient Tobacco Use Status: Never used Tobacco service: No Review of Systems Const Denies chills, Denies fatigue, Denies fever(s), Denies frequent falls, Denies weakness, Denies weight gain and Denies weight loss ENT Denies dizziness Card Denies chest pain, Denies leg edema, Denies lightheadedness, Denies palpitations, Denies dyspnea, Denies dyspnea on exertion, Denies orthopnea and Denies other (loss of consciousness) Resp Denies cough, Denies dyspnea and Denies dyspnea on exertion GI Denies hematochezia and Denies change in stool character Musc Denies abnormal gait, Denies muscle weakness, Denies numbness, Denies radiating pain into limb and Denies tingling Neuro Denies abnormal gait, Denies dizziness, Denies frequent falls, Denies numbness, Denies tingling and Denies weakness Endo Denies fatigue and Denies palpitations Physical Exam Vital Signs: Last Vital Signs Pulse 71 03/05/25 09:45 BP 120/76 03/05/25 09:45 BMI result Body Mass Index 30.1 Const General: healthy appearing and no acute distress Orientation/consciousness: patient oriented x3 HEENT Head: Yes normal to inspection Eyes General: appearance normal, both eyes and all related structures Neck Neck: Yes normal visual inspection Chest Chest palpation & inspection: normal inspection of the chest Resp Effort & Inspection: normal respiratory effort Auscultation: clear to auscultation bilaterally Cardio Jugular venous distension: no JVD Palpation: normal PMI Rate: regular rate Rhythm: regular rhythm Heart sounds: S1 normal heart sound present, S2 normal heart sound present, no click, no gallops, no murmurs and no rubs GI Inspection: Yes normal to inspection Palpation (GI): Soft to palpation Skin General skin exam: no rashes or lesions noted Neuro General: patient oriented x3 Extrem General: Yes normal to inspection Psych Appearance: grossly normal Office Procedures Cardiac Device Check Cardiac Device Check Details: Dual-chamber Medtronic pacemaker in place programmed in rate drop response at 60 beats per minute. More than 7000 rate drop response noted. No arrhythmias noted. Atrial ventricular sensing is adequate. Atrial ventricular pacing th resholds adequate and reprogrammed to enhance battery life. Pacing lead impedance is stable. Battery life is at 13.3 years [id number] Cardiac Device Check, pacemaker dual lead Procedure code (CPT) selection complete EKG Details: EKG shows normal sinus rhythm normal EKG 84395-Eaospgtiwotukpxvh, Complete Assessment & Plan Assessment & Plan (1) Cardiac pacemaker in situ: Code(s): Z95.0 - Presence of cardiac pacemaker Category: Medical Plan: Cardiac pacemaker in place for syncope with significant pauses. Pacemaker is working well. She has not had any syncopal episodes since the pacemaker placement. She does have a vasovagal component and have advised her to continue participate in aggressive fluid intake and salt intake. Advised to maintain activity level as tolerated. Will follow up pacemaker remotely. Follow up in the clinic in 1 year's time, sooner p.r.n.. Thank you for allowing me to partake in her care Coding Level of Care Code Est Pt Level 4 (50158) Complex EM visit Add On G2211 Diagnoses Cardiac pacemaker in situ Z95.0 CPT Codes Cardiac Device Check - Cardiac Device 2: [id number] Cardiac Device Check, pacemaker dual lead ([id number]) EKG - CPT: 55803-Lqcxlmyaiuwjafcmi, Complete ([id number])
== END 2025-03-05 10:13 | disposition home or self-care (01) ==
LOC: HO.HCS 09:16
PROVIDERS: Visit Provider Internal Medicine Cardiovascular Disease
DX: R55 Syncope and collapse (principal); Z95.0 Presence of cardiac pacemaker
CPT/HCPCS: 93010; 93280; 99214; G2211

== ENCOUNTER → 2025-03-05 09:16 | Outpatient (BNVA) | payer MEDICARE, SELFPAY | PROVIDERS: Visit Provider Internal Medicine Cardiovascular Disease | DX: Z95.0 Presence of cardiac pacemaker (principal) | CPT/HCPCS: 93005; 93280; 99212 ==

== ENCOUNTER 2025-03-06 13:30 | Outpatient (REF) | payer MEDICARE, SELFPAY ==
--- OUTSIDE RECORDS SUMMARY | 2024-11-05 06:29 | XMS_ITS ---
Author Organization Monroe Meléndez MD Address 10 [place] [facility] [address] [place] [phone] Care Team Providers Care Book Solicitor Name Role Phone Monroe Meléndez Primary Care Provider REASON FOR VISIT HCC Risk Codes 03/05 Encounters Encounter Location Date Provider Diagnosis Monroe Meléndez MD [address] [place] [address] [place] [phone] 11/05/2024 Monroe Meléndez Plan Of Treatment Next Appt Details Provider Name:Monroe baptiste, 08/29/2025 07:15:00 AM, [address] [place] [address], [address], [phone], Provider Name:Monroe baptiste, 09/05/2025 10:45:00 AM, [address] [place] [address], [address], [phone], Provider Name:Monroe baptiste, 03/03/2026 07:00:00 AM, [address] [place] [address], [address], [phone], Provider Name:Monroe baptiste, 03/10/2026 10:30:00 AM, [address], [address], [place], [place], [phone], Progress Notes * Oscar WOODWARDOB:1955 ([age] yo F)Acc No.[id number]:11/05/2024 Patient: Adelaida ROJO :1955 A ge:69 Y S ex:Female Address:[address] [place] [address], [place] [address] * true * Date: Generated for Mandeep larkin/Rober/eTransmitting on: 0 2025 02:21 PM EDT
--- NOTE | ~2025-03-06 | XR_ITS ---
EXAMINATION: XR ANKLE 3 OR MORE VIEWS RIGHT HISTORY: ANKLE PAIN, COMPARISON: There are no prior studies available for comparison. FINDINGS: Three views of the right ankle are submitted. Osseous mineralization is normal. The patient is status post tibiotalar arthrodesis with 3 cannulated screws, which appears solid. There is an old healed fracture of the distal fibula. No acute fracture is seen. 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 The soft tissues are unremarkable. XR/XR ankle RT min 3V IMPRESSION: Status post tibiotalar arthrodesis. 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 Electronically signed by: German Medina MD 03/06/2025 02:05 PM EDT
--- OUTSIDE RECORDS SUMMARY | 2025-03-06 14:21 | XMS_ITS | Patient Health Record ---
Author Organization [facility] Address [address] [place] [address] Care Team Providers Care Psychiatric Technician Name Role Phone Monroe Meléndez MD Primary Care Provider German Charlton Unavailable [phone] Reason For Referral No Information Medications Medication SIG (Take, Route, Fr equency, Duration) Notes Start Date End Date Status Hyoscyamine 0.125 mg 1 TAB Sublingual Active Omeprazole 20 MG 1 capsule Orally Onc e a day/ NEEDED Active Problems Problem Type SNOMED Code ICD Code Onset Dates Problem Status W/U Status Risk Notes Problem 072154794 Encounter for screening for malignant neoplasm of colon (Z12.11) Active confirmed Problem Encounter for screening for malignant neoplasm of rectum (Z12.12) Active confirmed Problem 631698287 Gastroesophageal reflux disease, esophagitis presence not specified (K21.9) Active confirmed Plan Of Treatment Pending Test Test Name Order Date GI BIOPSY 06/23/2016 Future Test Test Name Order Date UPPER GI ENDOSCOPY 04/06/2016 COLONOSCOPY 04/06/2016 Insurance Providers Payer Name Payer Address Payer Phone Subscriber Number Group Number Insured Name Patient Relationship to Insured Coverage Start Date Coverage End Date [facility] PROFESSIONAL CLAIMS [address] [place] [address] [id number] TAMAR WOODWARD Self - patient is the insured Medical (General) History Medical History History ICD Code Negative screening colonosocpy 01-12-2007 --diverticulosis History of infectious colitis--[place] a History of elevated liver function tests --neg. w/u in 2006 Denies [place],DM,CVA,Lung disease,renal dise ase Surgical History Surgery Date(Month/Year) Right ankle fusion
== END 2025-03-06 13:31 | disposition home or self-care (01) ==
LOC: HO.XRAY 13:30
PROVIDERS: PCP Internal Medicine; Visit Provider Internal Medicine
DX: M25.571 Pain in right ankle and joints of right foot (principal)
CPT/HCPCS: 73610

== ENCOUNTER → 2025-03-06 13:42 | Outpatient (BNV) | payer MEDICARE, SELFPAY | PROVIDERS: PCP Internal Medicine; Visit Provider Radiology Diagnostic Radiology | DX: M19.071 Primary osteoarthritis, right ankle and foot (principal) | CPT/HCPCS: 73610 ==

== ENCOUNTER → 2025-04-06 23:59 | Outpatient (BNV) | payer MEDICARE, SELFPAY ==
--- NOTE | 2025-04-10 16:22 | MHC.OFFVIS ---
Intake Visit Reasons: Remote device check- Medtronic Allergies No Known Allergies Allergy (Unverified 12/14/23 08:21) PFSH Medical History Syncope and collapse Vasovagal syncope Hyperlipidemia Surgical History S/P placement of cardiac pacemaker Social History Household Members: Spouse Housing: House Do you presently have visiting nurse or other home services: No Alcohol intake: never Patient Tobacco Use Status: Never used Tobacco service: No Office Procedures Cardiac Device Check Cardiac Device Check Details: Remote pacemaker report generated 04/06/2025. Pacemaker function is adequate [id number] Cardiac Device Interrogation, pacemaker Procedure code (CPT) selection complete Assessment & Plan Assessment & Plan (1) Cardiac pacemaker in situ: Code(s): Z95.0 - Presence of cardiac pacemaker Category: Medical Plan: See above Coding Level of Care Code Procedure Only Diagnoses Cardiac pacemaker in situ Z95.0 CPT Codes Cardiac Device Check - Cardiac Device 12: [id number] Cardiac Device Interrogation, pacemaker ([id number])
== END ==
PROVIDERS: PCP Internal Medicine; Visit Provider Internal Medicine Cardiovascular Disease
DX: Z45.018 Encounter for adjustment and management of other part of cardiac pacemaker (principal)
CPT/HCPCS: 93294

== ENCOUNTER 2025-06-12 07:39 | Outpatient (REF) | payer MEDICARE, SELFPAY ==
--- OUTSIDE RECORDS SUMMARY | 2023-12-22 06:30 | XMS_ITS ---
Author Organization Monroe Meléndez MD Address [address] [place] [phone] Care Team Providers Care Dividend Deposit Voucher Clerk Name Role Phone Monroe Meléndez Primary Care Provider Allergies No Known Allergies REASON FOR VISIT PH/TCM, No Covid Symptoms, Check mole on back, Accompanied by Medications Medication SIG (Take, Route, Frequency, Duration) Notes Start Date End Date Status Omeprazole 20 MG 1 capsule Orally Onc e a day for 30 Not-Taking Levsin/SL 0.125 MG 1 tablet under the tongue and allow to dissolve before meals as needed Sublingual once per day for 20 days 11/18/2015 Not-Taking Omeprazole 20 MG 1 capsule Orally Onc e a day for 30 day(s) 11/18/2015 Not-Taking Fluticasone Propionate 50 MCG/ACT 1 spray in each nostril Nasally Twice a day for 30 day(s) 11/24/2023 Active Aspirin 81 81 MG 1 tablet Orally Once a day for 30 day(s) Active Atorvastatin Calcium 40 MG TAKE 1 TABLET BY MOUTH EVERY DAY for 90 Active Vitamin D (Cholecalciferol) 1000 UNIT 1 tablet Orally Once a day 12/21/2016 Active Vital Signs Blood pressure systolic 122 mm Hg 12/22/19 24 Blood pressure diastolic 60 mm Hg 024 Height 60 in 12/22/2023 Weight 148 lbs 12/22/2023 BMI 28.90 kg/m2 12/22/2023 weight is down 7 pounds [facility] e 11-24-23 Encounters Encounter Location Date Provider Diagnosis Monroe Meléndez MD [address] [place] [address] [place] [phone] 12/22/2023 Monroe Meléndez Abnormal computed tomography angiography of head R93.0 and Recurrent syncope R55 Assessments Encounter Date Diagnosis (ICD Code) Assessment Notes Treatment Notes Treatment Clinical Notes Section Notes 12/22/2023 Abnormal computed tomography angiography of head (ICD-10 - R93.0) need results for head cta/ spoke with the radiologist and the artery is fine and nothing further needs be dond 12/22/2023 Recurrent syncope (ICD-10 - R55) had a pacer inserted and is doing well 12/22/2023 Other Total time spen t on the date of the encounter is 35 minutes including both face to face time spent and time spent reviewing documentation, and counseling the patient. Plan Of Treatment Treatment Notes Assessment Notes Abnormal computed tomography angiography of head need results for head cta/ [facility] and the artery is fine and nothing further needs be dond Recurrent syncope had a pacer inserted and is doing well Other Total time spent on the date of the encounter is 35 minutes including both face to face time spent and time spent reviewing documentation, and counseling the patient. Next Appt Details Provider Name:Monroe baptiste, 08/29/2025 07:15:00 AM, [address] [place] [address], Suite [facility], [place], [place], [phone], Provider Name:Monroe baptiste, 09/05/2025 10:45:00 AM, [address] [place] [address], [address] [place] [address], [phone], Provider Name:Monroe baptiste, 03/03/2026 07:00:00 AM, [address] [place] [address], [address] [place] [address], [phone], Provider Name:Monroe baptiste, 03/10/2026 10:30:00 AM, [address] [place] [address], [address] [place] [address], [phone], Progress Notes * Oscar WOODWARDOB:1955 ([age] yo F)Acc No.[id number]:12/22/2023 Patient: Adelaida Plunkett Provider: Shireen Meléndez MD :1955 A ge:68 Y S ex:Female Date:12/22/2023 Address:[address] [place] [address], [id number] Subjective: * Chief Complaints: * P H/TCMNo Covid SymptomsCheck mole on backAccompanied by * HPI: S ymptom(s): patient is a 68 yo female here for transitional care management follow up. had a pain in neck muscle after washing all the smith and ceilings. had severe pain and shaking and threw up. passed out . discharge summary has catherine reviewed and medications reconcilled, had cat scan of neck and shoulder. * ROS: G eneral/Constitutional: Denies C hills. D enies F atigue. D enies F ever. D enies H eadache. E NT: Patient denies d ecreased sense of smell , any loss of taste , sore throat. D enies S ore throat. R espiratory: Denies C ough. D enies S hortness of breath at rest. D enies S hortness of breath with exertion. C ardiovascular: Denies C hest pain at rest. D enies C hest pain with exertion. D enies D izziness. D enies F luid accumulation in the legs. D enies?Palpitations. D enies S hortness of breath. G astrointestinal: Denies D iarrhea. D enies N ausea. M usculoskeletal: Patient denies m uscle aches. P eripheral Vascular: Patient denies r ed and blue toes. * Medical History: * Surgical History: * Hospitalization/Major Diagno stic Procedure: * Medications: T akingAspirin 81 81 MG Tablet Delayed Release 1 tablet Orally Once a dayVitamin D (Cholecalciferol) 1000 UNIT Tablet 1 tablet Orally Once a dayAtorvastatin Calcium 40 MG Tablet TAKE 1 TABLET BY MOUTH EVERY DAY Fluticasone Propionate 50 MCG/ACT Suspension 1 spray in each nostril Nasally Twice a dayTaking Aspirin 81 81 MG Tablet Delayed Release 1 tablet Orally Once a dayTaking Vitamin D (Cholecalciferol) 1000 UNIT Tablet 1 tablet Orally Once a dayTaking Atorvastatin Calcium 40 MG Tablet TAKE 1 TABLET BY MOUTH EVERY DAY Taking Fluticasone Propionate 50 MCG/ACT Suspension 1 spray in each nostril Nasally Twice a dayNot-Taking/PRNOmeprazole 20 MG Capsule Delayed Release 1 capsule Orally Once a dayLevsin/SL 0.125 MG Tablet Sublingual 1 tablet under the tongue and allow to dissolve before meals as needed Sublingual once per dayOmeprazole 20 MG Unspecified 1 capsule Orally Once a dayMedication List reviewed and reconciled with the patientNot-Taking/PRN Omeprazole 20 MG Capsule Delayed Release 1 capsule Orally Once a dayNot-Taking/PRN Levsin/SL 0.125 MG Tablet Sublingual 1 tablet under the tongue and allow to dissolve before meals as needed Sublingual once per dayNot-Taking/PRN Omeprazole 20 MG Unspecified 1 capsule Orally Once a dayMedication List reviewed and reconciled with the patient * Allergies: N .K.D.A.yes[Allergies Verified] Objective: * Vitals: H t: 60, Wt:148, BMI:28.90, BP:122/60 weight is down 7 pounds since 11-24-23. * Examination: G eneral Examination: GENERAL APPEARANCE: alert, well hydrated, in no distress . HEAD: normocephalic. SKIN: jn the middle of back is a 1/4 in john keratosis.? HEART: no murmurs, rubs, gallops, regular rate and rhythm. LUNGS: no wheezes, rales, rhonchi, good air movement, clear to auscultation bilaterally. Assessment: * Assessment: 1. A bnormal computed tomography angiography of head - R93.0 (Primary) 2 . R ecurrent syncope - R55 Plan: * Treatment: 2. R ecurrent syncope Notes: had a pacer inserted and is doing well. 3. O thers Notes: Total time spent on the date of the encounter is 35 minutes including both face to face time spent and time spent reviewing documentation, and counseling the patient. * Procedure Codes: * * Sign off status: Completed true * Provider: Shireen Meléndez MD Date: 0 12/22/2023 Generated for Mandeep larkin/Rober/Rodolfo on: 1 07:41 AM EDT History and Physical Notes * HPI (History of Present Illness) Category Sub-Category Detail Notes Category Not es Symptom(s) patient is a 68 yo female here for transitional care management follow up. had a pain in neck muscle after washing all the smith and ceilings. had severe pain and shaking and threw up. passed out . discharge summary has catherine reviewed and medications reconcilled, had cat scan of neck and shoulder. Examination Category Sub-Category Detail Notes Category Not es General Examination GENERAL APPEARANCE: alert, w ell hydrated, in no distress HEAD: normocephalic HEART: no murmurs, rubs, ga llops, regular rate and rhythm LUNGS: no wheezes, rales, r honchi, good air movement, clear to auscultation bilaterally SKIN: jn the middle of tyler k is a 1/4 in john keratosis
--- OUTSIDE RECORDS SUMMARY | 2024-02-21 04:00 | XMS_ITS ---
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 Name Role Phone Monroe Meléndez Primary Care Provider Results Component Value Reference Range Notes Complete Blood Count Auto Di ff Reviewed date:02/21/2024 12:42:59 PM Interpretation: Performing Lab:[facility], [address] [place] [phone] Notes/Report: White Blood Count 6.1 4.8-10.8 X10*3/uL [...] Panel Reviewed date:02/21/2024 02:48:26 PM Interpretation: Performing Lab:[facility], [address] [place] [phone] Notes/Report: Bilirubin Direct 0.2 0.0-0.5 mg/dL Lipid Panel Reviewed date:02/21/2024 02:49:22 PM Interpretation: Performing Lab:[facility], [address] [place] [phone] Notes/Report: Triglycerides 73 <150 mg/dL Desirable Triglyceride: [...] Total Reviewed date:02/21/2024 04:27:34 PM Interpretation: Performing Lab:[facility], [address] [place] [phone] Notes/Report: Vitamin D 25-OH Total 50.0 >30 [...] A1c Reviewed date:02/21/2024 12:38:28 PM Interpretation: Performing Lab:[facility], [address] [place] [phone] Notes/Report: Hemoglobin A1c % 5.6 <6.0 % [...] average glucose, using the formula of the I2S-Oapvvds Average Glucose study (ADAG), Diabetes Care, Vol.31,#8, Mar. 2007 REASON FOR VISIT FASTING LABS Encounters Encounter Location Date Provider Diagnosis Monroe Meléndez MD [address] [place] [address] Drive [address] [place], [place] [id number] 02/21/2024 Monroe Meléndez Prediabetes R73.09 ; Abnormal [...] AM, [address], [address], [place], [id number], Provider Name:Monroe Hightower ier, 09/05/2025 10:45:00 AM, [address] [facility] [address], [address], [place], [id number], Provider Name:Monroe Hightower ier, 03/03/2026 07:00:00 AM, [address] [facility] [address], [address], [place], [phone], Provider Name:Monroe Hightower ier, 03/10/2026 10:30:00 AM, [address] [facility], [address], [place], [phone], Progress Notes * TRACE OscarOB:1955 ([age] yo F)Acc No.[id number]:02/21/2024 Progress Note Patient: Adelaida ROJO Provider: Shireen Meléndez MD :1955 A ge:68 Y S ex:Female Date:02/21/2024 Address:[address] [place] [address] [place]helle gordon [id number] Subjective: * Chief Complaints: * 1 . FASTING LABS. * Medical History: Objective: * Vitals: Assessment: * Assessment: 1. P rediabetes - R73.09 (Primary) 2 . A bnormal LFTs - R79.89 ?3. V itamin D deficiency - E55.9 Plan: * Treatment: 2. A bnormal LFTs L AB: Comprehensive [place]. Panel Fast (Order Cancelled) L AB: Microalbumin, [...] V itamin D deficiency L AB: Comprehensive [place]. Panel Fast (Order Cancelled) L AB: Microalbumin, [...] 02/21/2024 Generated for Mandeep larkin/Rober/Rodolfo on: 1 07:42 AM EDT
--- OUTSIDE RECORDS SUMMARY | 2024-03-01 10:30 | XMS_ITS ---
Author Organization Monroe Meléndez MD Address [address] [place], [place] [id number] Care Team Providers Care Mechanic/Welder Name Role Phone Monroe Meléndez Primary Care Provider Allergies No Known Allergies Results Component Value Reference Range Notes Microalbumin, Random Reviewed date:03/02/2024 12:22:41 PM Interpretation: Performing Lab:[facility], [address] [place] [phone] Notes/Report: Creatinine Urine 100.35 Microalbumin Urine 5.0 Microalbum/Creatinine Ratio Ur 4.9 <30 ug/mg cr Albumin/Creatinine Ratio Reference Ranges: Normal: < 30 ug/mg creatinine Microalbuminuria: 30 - 300 ug/mg creatinine Clinical Albuminuria: > 300 ug/mg creatinine UA ClnCatch+Micro w/rflx Cul t Reviewed date:03/01/2024 04:15:28 PM Interpretation: Performing Lab:[facility], [address] [place] [phone] Notes/Report: Urine, Clean Catch Color Urine Yellow Appearance Urine Clear PH 5.5 5.0-9.0 Glucose Urine UA Negative Negative mg/dL Urine Blood Negative Negative Specific [place] - Urine 1.010 1.005-1.025 Urine Protein Negative [...] Problem Status W/U Status Risk Notes Problem 181298028 History of pacemaker (Z95.0) Active confirmed Vital Signs Blood pressure systolic 138 mm Hg 03/01/20 24 Blood pressure diastolic 70 mm Hg 024 Height 60 in 03/01/2024 Weight 149 lbs 03/01/2024 BMI 29.10 kg/m2 03/01/2024 Encounters Encounter Location Date Provider Diagnosis Monroe Meléndez MD [address] [place] [address] [address] [place], [place] [phone] 03/01/2024 Monroe Meléndez Prediabetes R73.09 ; Annual [...] Reason: Provider Name:Monroe baptiste, 08/29/2025 07:15:00 AM, [address] [place] [address], [address], [phone], Provider Name:Monroe baptiste, 09/05/2025 10:45:00 AM, [address] [place] [address], [address], [phone], Provider Name:Monroe baptiste, 03/03/2026 07:00:00 AM, [address] [place] [address], [address], [phone], Provider Name:Monroe baptitse, 03/10/2026 10:30:00 AM, [address] [place] [address], [address], [phone], Progress Notes * Oscar WOODWARDOB:1955 ([age] yo F)Acc No.[id number]:03/01/2024 Progress Notes Patient: Adelaida Plunkett Provider: Shireen Meléndez MD :1955 A ge:68 Y S ex:Female Date:03/01/2024 Address:[address] [place] [address], [id number] Subjective: * Chief Complaints: * A NNUAL [...] masses palpable. RECTAL EXAM: d one by retail cashier. FEMALE GENITOURINARY: d one by retail cashier. EXTREMITIES: n o clubbing, cyanosis, or edema. [...] 0 03/01/2024 Generated for Mandeep Hutchinson/Rodolfo on: 07:41 AM EDT History and Physical Notes [...] mass, no lump RECTAL EXAM: done by retail cashier FEMALE GENITOURINARY: done by retail cashier ORAL CAVITY: mucosa moist
--- OUTSIDE RECORDS SUMMARY | 2024-05-15 04:30 | XMS_ITS ---
Author Organization Monroe Meléndez MD Address [address] [place] [phone] Care Team Providers [facility] [employer] Hazmat Tanker Driver Name Role Phone Monroe Meléndez Primary Care Provider REASON FOR VISIT HDF Immunizations Vaccine Route Administration Date Status Comme nts Influenza High Dose IM Intramuscular 05/15/2024 Administer ed Encounters Encounter Location Date Provider Diagnosis Monroe Meléndez MD 10 [facility] [address] [place] [phone] 05/15/2024 Monroe Meléndez Encounter for immunization Z23 Assessments Encounter Date Diagnosis (ICD Code) Assessment Notes Treatment Notes Treatment Clinical Notes Section Notes 05/15/2024 Encounter for immunization (ICD-10 - Z23) Plan Of Treatment Next Appt Details Provider Name:Monroe baptiste, 08/29/2025 07:15:00 AM, [address] [place] [address], [address], [phone], Provider Name:Monroe baptiste, 09/05/2025 10:45:00 AM, 10 [facility], [address], [phone], Provider Name:Monroe baptiste, 03/03/2026 07:00:00 AM, [address], [address], [place], [place], [phone], Provider Name:Monroe Hightower ier, 03/10/2026 10:30:00 AM, [address], [address], [place], [place], [phone], Progress Notes * Oscar WOODWARDOB:1955 ([age] yo F)Acc No.[id number]:05/15/2024 Progress Note Patient: Adelaida ROJO Provider: Shireen Meléndez MD :1955 A ge:69 Y S ex:Female Date:05/15/2024 Address:[address] [place] [address] [facility] Subjective: * Chief Complaints: * 1 . [...] MD Date: 0 05/15/2024 Generated for Mandeep larkin/Rober/eTjuliansmitting on: 07:42 AM EDT
--- OUTSIDE RECORDS SUMMARY | 2024-09-04 11:48 | XMS_ITS ---
Author Organization Monroe Meléndez MD Address 10 [facility] [address] [place] [phone] Care Team Providers Care Home Appliances Mechanic Name Role Phone Monroe Meléndez Primary Care Provider [phone] Encounters Encounter Location Date Provider Diagnosis Monroe Meléndez MD [address] [place] [address] [place] [phone] 09/04/2024 Monroe Meléndez Plan Of Treatment Next Appt Details Provider Name:Monroe baptiste, 08/29/2025 07:15:00 AM, [address] [place] [address], [address], [phone], Provider Name:Monroe baptiste, 09/05/2025 10:45:00 AM, [address] [place] [address], [address], [phone], Provider Name:Monroe baptiste, 03/03/2026 07:00:00 AM, [address] [place] [address], [address], [phone], Provider Name:Monroe baptiste, 03/10/2026 10:30:00 AM, [address] [place] [address], [phone], Progress Notes * Oscar WOODWARDOB:1955 ([age] yo F)Acc No.[id number]:09/04/2024 Patient: Dorian meadowsWillisle :1955 A ge:69 Y S ex:Female Address:[address] [place] [address], [place] [address] * true * Date: Generated for Mandeep larkin/Rober/eTransmitting on: 07:41 AM EDT
--- OUTSIDE RECORDS SUMMARY | 2024-09-04 11:52 | XMS_ITS ---
Author Organization Monroe Meléndez MD Address 10 [facility] [address] [place] [phone] Care Team Providers Care Hoop Maker Helper Machine Name Role Phone Monroe Meléndez Primary Care Provider REASON FOR VISIT refill Encounters Encounter Location Date Provider Diagnosis Monroe Meléndez MD [address] [place] [address] [place] [phone] 09/04/2024 Monroe Meléndez Plan Of Treatment Next Appt Details Provider Name:Monroe baptiste, 08/29/2025 07:15:00 AM, [address] [place] [address], [address], [phone], Provider Name:Monroe baptiste, 09/05/2025 10:45:00 AM, [address] [place] [address], [address], [phone], Provider Name:Monroe baptiste, 03/03/2026 07:00:00 AM, [address] [place] [address], [address], [phone], Provider Name:Monroe baptiste, 03/10/2026 10:30:00 AM, [address], [address], [phone], Progress Notes * Oscar WOODWARDOB:1955 ([age] yo F)Acc No.[id number]:09/04/2024 Patient: Adelaida Plunkett :1955 A ge:69 Y S ex:Female Address:[address] [place] [address], [place] [address] * true * Date: Generated for Mandeep larkin/Rober/eTransmitting on: 07:42 AM EDT
--- OUTSIDE RECORDS SUMMARY | 2024-11-05 06:29 | XMS_ITS ---
Author Organization Monroe Meléndez MD Address 10 [facility] [address] [place] [phone] Care Team Providers Care Companion Name Role Phone Monroe Meléndez Primary Care Provider [phone] REASON FOR VISIT HCC Risk Codes 03/05 Encounters Encounter Location Date Provider Diagnosis Monroe Meléndez MD [address] [place] [address] [place] [phone] 11/05/2024 Monroe Meléndez Plan Of Treatment Next Appt Details Provider Name:Monroe baptiste, 08/29/2025 07:15:00 AM, [address] [place] [address], [address] [place] [address], [phone], Provider Name:Monroe baptiste, 09/05/2025 10:45:00 AM, [address] [place] [address], [address] [place] [address], [phone], Provider Name:Monroe baptiste, 03/03/2026 07:00:00 AM, [address] [place] [address], [address], [phone], Provider Name:Monroe baptiste, 03/10/2026 10:30:00 AM, [address], [address], [place], [place], [phone], Progress Notes * Oscar WOODWARDOB:1955 ([age] yo F)Acc No.[id number]:11/05/2024 Patient: Adelaida ROJO :1955 A ge:69 Y S ex:Female Address:[address] [place] [address], [place] [address] * true * Date: Generated for Mandeep larkin/Rober/eTransmitting on: 07:41 AM EDT
--- OUTSIDE RECORDS SUMMARY | 2025-02-26 03:15 | XMS_ITS ---
Author Organization Monroe Meléndez MD Address [address] [place], [place] [id number] Care Team Providers Care Golf Ball Molder Name Role Phone Monroe Meléndez Primary Care Provider Results Component Value Reference Range Notes Complete Blood Count Auto Di ff Reviewed date:02/26/2025 12:36:30 PM Interpretation: Performing Lab:[facility], [address] [place] [id number] Notes/Report: White Blood Count 6.2 4.8-10.8 X10*3/uL [...] NRBC Abs Auto 0.000 0.0-0.012 X10*3/uL Comprehensive [place]. Panel Fa st Reviewed date:02/26/2025 12:43:14 PM Interpretation: Performing Lab:[address] [id number] Notes/Report: Sodium 140 135-145 mmol/L Potassium 4.2 [...] Panel Reviewed date:02/26/2025 12:36:39 PM Interpretation: Performing Lab:[address] [id number] Notes/Report: Triglycerides 90 <150 mg/dL Desirable Triglyceride: [...] Total Reviewed date:02/26/2025 12:37:16 PM Interpretation: Performing Lab:[address] [address] Notes/Report: Vitamin D 25-OH Total 62.2 >30 [...] Random Reviewed date:02/26/2025 12:36:05 PM Interpretation: Performing Lab:[address] [place] [address] Notes/Report: Creatinine Urine 96.40 Microalbumin Urine < 5.0 Microalbum/Creatinine Ratio Ur TNP <30 ug/mg cr Unable to calculate albumin/creatinine ratio due to low microalbumin or creatinine result. Hemoglobin A1c Reviewed date:02/26/2025 12:35:57 PM Interpretation: Performing Lab:[facility], [address] [place] [phone] Notes/Report: Hemoglobin A1c % 5.7 <6.0 % [...] average glucose, using the formula of the H5J-Lpodjjn Average Glucose study (ADAG), Diabetes Care, Vol.31,#8, Mar. 2007 UA ClnCatch+Micro w/rflx Cul t Reviewed date:02/26/2025 12:44:13 PM Interpretation: Performing Lab:[facility], [address] [place] [phone] Notes/Report: Urine, Clean Catch Color Urine Yellow Appearance Urine Clear PH 6.5 5.0-9.0 Glucose Urine UA Negative Negative mg/dL Urine Blood Negative Negative Specific Printer - Urine 1.015 1.005-1.025 Urine Protein Negative [...] Location Date Provider Diagnosis Monroe Meléndez MD [address] [place] [address] [address] [place], [place] [phone] 02/26/2025 Monroe Meléndez Blood tests for rout [...] Name:Monroe San [place] ier, 08/29/2025 07:15:00 AM, [address] [place] [address], [address] [place] [address], [phone], Provider Name:Monroe San Campbell ier, 09/05/2025 10:45:00 AM, [address] [place] [address], [address], [phone], Provider Name:Monroe San Campbell ier, 03/03/2026 07:00:00 AM, [address] [place] [address], [address], [phone], Provider Name:Monroe Hightower ier, 03/10/2026 10:30:00 AM, [address] [place] [address], [address], [phone], Progress Notes * TRACE, OscarOB:1955 ([age] yo F)Acc No.[id number]:02/26/2025 Progress Note Patient: Adelaida ROJO Provider: Shireen Meléndez MD :1955 A ge:69 Y S ex:Female Date:02/26/2025 Address:[address] [place], [place] [phone] Subjective: * Chief Complaints: * 1 . [...] - 02/26/2025 07:15 AM) L AB: Comprehensive [place]. Panel Fast (Collection Date & Time - [...] - 02/26/2025 07:15 AM) L AB: Comprehensive [place]. Panel Fast (Collection Date & Time - [...] - 02/26/2025 07:15 AM) L AB: Comprehensive [place]. Panel Fast (Collection Date & Time - [...] MD Date: 0 02/26/2025 Generated for Mandeep larkin/Roebr/Nileshsmitting on: 1 07:43 AM EDT
--- OUTSIDE RECORDS SUMMARY | 2025-03-05 07:00 | XMS_ITS ---
Author Organization Monroe Meléndez MD Address [address] [place] [phone] Care Team Providers Care Engineering Intern Name Role Phone Monroe Meléndez Primary Care Provider [phone] Allergies No Known Allergies Results Component Value Reference Range Notes XR ankle RT min 3V Reviewed date:2025 03:50:20 PM Interpretation: Performing Lab: Notes/Report: [address] [address] XRay Report Signed Patient: Adelaida Woodward MR#: [id number] : 1955 Acct:[id number] Age/Sex: 70 / F ADM Date: 03/06/25 Loc: HO.BIRGIT Attending Dr: Monroe Meléndez MD Ordering Physician: Monroe Meléndez MD Date of Service: 03/06/25 Procedure(s): XR ankle RT min 3V Accession Number(s): [id number] cc: Monroe Meléndez MD EXAMINATION: XR ANKLE [...] 03/06/25 1405 DD/ 1350 TD/TT: 03/06/25 1402 Field Marketing Associate: [place] [address] XRay Report Signed Patient: Adelaida Woodward MR#: [id number] : 1955 Acct:[id number] Age/Sex: 70 / F ADM Date: 03/06/25 Loc: HO.XRAY Attending Dr: Monroe Meléndez MD Ordering Physician: Monroe Meléndez MD Date of Service: 03/06/25 Procedure(s): XR ank le RT min 3V Accession Number(s): [id number] cc: Monroe Meléndez MD EXAMINATION: XR ANKL [...] 03/06/25 1405 DD/ 1350 TD/TT: 03/06/25 1402 Field Marketing Associate: REASON FOR VISIT ANNUAL EXAM Medications Medication [...] Date Provider Diagnosis Monroe Meléndez MD [address] [place], [place] [phone] 03/05/2025 Monroe Meléndez Prediabetes R73.09 ; Adult [...] laterality (ICD-10 - M25.579) [place] [facility] [place] Reg, pending diagnostic testing 03/05/2025 Depression [...] ill continue current regiment 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, 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, unspecified laterality order [place] [facility] Patient Reg, pending diagnostic testing Depression screening negative screen Next Appt Details Follow Up: 1 Year, Reason: Provider Name:Monroe baptiste, 08/29/2025 07:15:00 AM, [address] [place] [address], [address] [place] [address], [phone], Provider Name:Monroe baptiste, 09/05/2025 10:45:00 AM, [address] [place] [address], Suite [facility], [place], [place], [phone], Provider Name:Monroe baptiste, 03/03/2026 07:00:00 AM, [address] [place] [address], Suite [facility], [place], [place], [phone], Provider Name:Monroe baptiste, 03/10/2026 10:30:00 AM, [address], [address], [place], [phone], Progress Notes * Oscar WOODWARDOB:1955 ([age] yo F)Acc No.[id number]:03/05/2025 Progress Notes Patient: Adelaida ROJO Provider: Shireen Meléndez MD :1955 A ge:69 Y S ex:Female Date:03/05/2025 Address:[address] [place] [address], [place]le gordon [id number] Subjective: * Chief Complaints: * A NNUAL [...] mg/dL Urine Blood Negative Negative - Specific [place] - Urine 1.015 1.005-1.025 - Urine Protein [...] Urine 0-2 0-2 - /LPF L ab:Comprehensive [place]. Panel Fast (Order Date - 02/26/2025) (Collection [...] Date - 2025) Notes: order [place] [facility] Patient Reg, pending diagnostic testing 6. D [...] 03/05/2025 Generated for Mandeep larkin/Rober/eTransmitting on: 1 07:42 AM EDT History and Physical Notes * [...]
--- OUTSIDE RECORDS SUMMARY | 2025-04-23 07:00 | XMS_ITS ---
Author Organization Monroe Meléndez MD Address [address] [place] [phone] Care Team Providers Care [employer] Principal Name Role Phone Monroe Meléndez Primary Care Provider REASON FOR VISIT HDF Immunizations Vaccine Route Administration Date Status Comme nts Influenza High Dose IM Intramuscular 04/23/2025 Administer ed Encounters Encounter Location Date Provider Diagnosis Monroe Meléndez MD [address] [facility] [address] [place] [phone] 04/23/2025 Monroe Meléndez Encounter for administration of vaccine Z23 Assessments Encounter Date Diagnosis (ICD Code) Assessment Notes Treatment Notes Treatment Clinical Notes Section Notes 04/23/2025 Encounter for administration of vaccine (ICD-10 - Z23) Plan Of Treatment Next Appt Details Provider Name:Monroe baptiste, 08/29/2025 07:15:00 AM, [address] [place] [address], [address], [phone], Provider Name:Monroe baptiste, 09/05/2025 10:45:00 AM, [address] [place] [address], [address], [phone], Provider Name:Monroe baptiste, 03/03/2026 07:00:00 AM, [address], [address], [place], [place], [phone], Provider Name:Monroe Hightower ier, 03/10/2026 10:30:00 AM, [address], [address], [place], [place], [phone], Progress Notes * Oscar WOODWARDOB:1955 (7 0 yo F)Acc No.[id number]:04/23/2025 Progress Note Patient: Adelaida ROJO Provider: Shireen Meléndez MD :1955 A ge:70 Y S ex:Female Date:04/23/2025 Address:[address] [place], [place] [phone] Subjective: * Chief Complaints: * 1 . [...] 0 04/23/2025 Generated for Mandeep larkin/Rober/Nileshsmitting on: 07:42 AM EDT
--- OUTSIDE RECORDS SUMMARY | 2025-06-12 07:43 | XMS_ITS | Patient Health Record ---
Author Organization Monroe Meléndez MD Address [address] [place], [place] [phone] Care Team Providers Care Jig And Fixture Maker Name Role Phone Monroe Meléndez Primary Care Provider [phone] Allergies No Known Allergies Results Component Value Reference Range Notes Complete Blood Count Auto Di ff Reviewed date:02/26/2025 12:36:30 PM Interpretation: Performing Lab:[facility], [address] [place] [phone] Notes/Report: White Blood Count 6.2 4.8-10.8 X10*3/uL [...] 0.0-0.2 /100WBC Neutrophils Absolute Auto 3.2 2.0-8.3 x10*3/uL Imm Gran Abs Auto 0.01 0.00-0.03 X10*3/uL Lymphocytes Absolute Auto 1.9 1.2-4.9 X10*3/uL Monocytes Absolute Auto 0.5 0.1-1.2 X10*3/uL Eosinophils Absolute Auto 0.4 0.0-0.4 X10*3/uL Basophils Absolute Auto 0.1 0.0-0.2 X10*3/uL NRBC Abs Auto 0.000 0.0-0.012 X10*3/uL Comprehensive [place]. Panel Fa st Reviewed date:02/26/2025 12:43:14 PM Interpretation: Performing Lab:[address] [address] Notes/Report: Sodium 140 135-145 mmol/L Potassium 4.2 [...] Panel Reviewed date:02/26/2025 12:36:39 PM Interpretation: Performing Lab:[address] [phone] Notes/Report: Triglycerides 90 <150 mg/dL Desirable Triglyceride: [...] Total Reviewed date:02/26/2025 12:37:16 PM Interpretation: Performing Lab:[address] [phone] Notes/Report: Vitamin D 25-OH Total 62.2 >30 [...] Random Reviewed date:02/26/2025 12:36:05 PM Interpretation: Performing Lab:[address] [phone] Notes/Report: Creatinine Urine 96.40 Microalbumin Urine < 5.0 Microalbum/Creatinine Ratio Ur TNP <30 ug/mg cr Unable to calculate albumin/creatinine ratio due to low microalbumin or creatinine result. Hemoglobin A1c Reviewed date:02/26/2025 12:35:57 PM Interpretation: Performing Lab:[facility], [address] [place] [phone] Notes/Report: Hemoglobin A1c % 5.7 <6.0 % [...] average glucose, using the formula of the T6E-Gorviql Average Glucose study (ADAG), Diabetes Care, Vol.31,#8, Mar. 2007 UA ClnCatch+Micro w/rflx Cul t Reviewed date:02/26/2025 12:44:13 PM Interpretation: Performing Lab:[facility], [address] [place] [phone] Notes/Report: Urine, Clean Catch Color Urine Yellow Appearance Urine Clear PH 6.5 5.0-9.0 Glucose Urine UA Negative Negative mg/dL Urine Blood Negative Negative Specific [place] - Urine 1.015 1.005-1.025 Urine Protein Negative Neg-Trace mg/dL Urine Ketones Negative Negative mg/dL Nitrite Urine Negative Negative Leukocyte Esterase Urine Small (1+) Negative RBC Urine 0-2 0-2 /HPF WBC Urine 0-5 0-5 /HPF Squamous Epithelial Cell Urine 0-2 0-2 /HPF Bacteria Urine None Seen None Seen Hyaline Casts Urine 0-2 0-2 /LPF XR ankle RT min 3V Reviewed date:2025 03:50:20 PM Interpretation: Performing Lab: Notes/Report: [address] [address] XRay Report Signed Patient: Adelaida Rosas MR#: [id number] : 1955 Acct:[id number] Age/Sex: 70 / F ADM Date: 03/06/25 Loc: HO.XRAY Attending Dr: Monroe Meléndez MD Ordering Physician: Monroe Meléndez MD Date of Service: 03/06/25 Procedure(s): XR ankle RT min 3V Accession Number(s): [id number] cc: Monroe Meléndez MD EXAMINATION: XR ANKLE [...] German Medina MD 2025 02:05 PM EDT Dictated By: German Medina MD Signed By: <Electronically signed by German Medina MD in OV> 03/06/25 1405 DD/ 1350 TD/TT: 03/06/25 1402 Day Care Aide: [place] [address] XRay Report Signed Patient: Adelaida Rosas MR#: [id number] : 1955 Acct:[id number] Age/Sex: 70 / F ADM Date: 03/06/25 Loc: HO.XRAY Attending Dr: Monroe Meléndez MD Ordering Physician: Monroe Meléndez MD Date of Service: 03/06/25 Procedure(s): XR ank le RT min 3V Accession Number(s): [id number] cc: Monroe Meléndez MD EXAMINATION: XR ANKL [...] German Medina MD 2025 02:05 PM EDT Dictated By: German Medina MD Signed By: <Electronically signed by German Medina MD in OV> 03/06/25 1405 DD/ 1350 TD/TT: 03/06/25 1402 Day Care Aide: Rashmi Abdul Reviewed date:02/26/2025 12:35:29 PM Interpretation: Performing Lab:[facility], [address] [place] [phone] Notes/Report: Rashmi Abdul See Note Specimen held untested for 24 hours; Call to request Chemistry testing. Urine Culture Reviewed date:02/28/2025 05:10:36 PM Interpretation: Performing Lab:[facility], [address] [place] [phone] Notes/Report: Urine Culture Report Result Urine Culture 50,000 to 100,000 cfu/ml Urine Culture Mixed bacterial osmin a characteristic of Urine Culture urogenital contamination. Reason For Referral No Information Medications Medication SIG (Take, Route, Frequency, Duration) [...] a day for 30 day(s) 11/18/2015 Not-Taking Aspirin 81 81 MG 1 tablet Orally Once a day for 30 day(s) Active Immunizations Vaccine Route Administration Date Status Comme nts Flu Vaccine IM Intramuscular 05/23/2012 Administered Flu Vaccine IM Intramuscular 06/05/2013 Administered Flu Vaccine IM Intramuscular 06/18/2014 Administered Shingles IM Intramuscular 11/05/2014 Administered Flu Vaccine IM Intramuscular 05/27/2015 Administered Fluarix Quadrivalent IM Intramuscular 06/01/2016 Admindominique pandey PPSV23 (Pnemovax) IM Intramuscular 06/08/2016 Administered Fluarix Quadrivalent IM Intramuscular 06/03/2017 Admindominique red Prevnar 13 IM Intramuscular 06/14/2017 Administered Fluarix Quadrivalent IM Intramuscular 05/02/2018 Admindominique pandey Fluarix Quadrivalent IM Intramuscular 05/15/2019 Admindominique pandey SARS-COV-2 Pfizer Unknown 11/04/2020 Administered SARS-COV-2 Pfizer Unknown 11/25/2020 Administered Influenza High Dose IM Intramuscular 05/22/2021 Administer ed Influenza High Dose IM Intramuscular 05/21/2022 Administer ed Influenza High Dose IM Intramuscular 05/16/2023 Administer ed Influenza High Dose IM Intramuscular 05/15/2024 Administer ed Influenza High Dose IM Intramuscular 04/23/2025 Administer ed Social History Tobacco Use: Social History Observation [...] Problem Status W/U Status Risk Notes Problem 91300659 Vitamin D defici ency (E55.9) Active confirmed Problem 1631162 Prediabetes (R73.09) Active confirmed Problem 35560498 Osteoporosis (M81.0) Active confirmed Problem 667112267 Abnormal LFTs (R79.89) Active confirm ed Problem 947514510 History of hemat uria (Z87.448) Active confirmed Problem 166191760 Pure hypercholesterolemia (E78.00) Active confirmed Problem 238384494 BMI 30.0-30.9,ad ult (Z68.30) Active confirmed Problem 285765952 History of pacem carson (Z95.0) Active confirmed Problem 562457051 Abdominal aortic atherosclerosis (I70.0) Active confirmed Vital Signs Blood pressure diastolic 74 mm Hg 03/05/2025 mason ght is up 8 pounds since 03-01-24 Height 60 in 03/05/2025 weight is up 8 pounds since 03-01-24 Blood pressure systolic 132 mm Hg 03/05/2025 weig ht is up 8 pounds since 03-01-24 Weight 157 lbs 03/05/2025 weight is up 8 pounds since 03-01-24 BMI 30.66 kg/m2 03/05/2025 weight is up 8 pounds since 03-01-24 Encounters Encounter Location Date Provider Diagnosis Monroe Meléndez MD [address] [place] [phone] 02/26/2025 Monroe Meléndez Blood tests for rout ine general physical examination Z00.00 ; Prediabetes R73.09 ; Pure hypercholesterolemia E78.00 and Vitamin D deficiency E55.9 Mornoe Meléndez MD [address] [place] [address] [phone] 04/23/2025 Monroe Meléndez Encounter for administration of vaccine Z23 Monroe Meléndez MD [address] [place] [address] [phone] 03/05/2025 Monroe Meléndez Prediabetes R73.09 ; Adult general medical examination Z00.00 ; Pure hypercholesterolemia E78.00 ; Vitamin D deficiency E55.9 ; Ankle pain, unspecified chronicity, unspecified laterality M25.579 and Depression screening Z13.31 Monroe Meléndez MD [address] [place] [address] Drive [address] [place] [phone] 09/04/2024 Monroe Meléndez MD [address] [place] [address] Drive [address] [place] [phone] 09/04/2024 Monroe Meléndez MD [address] [place] [address] [address] [phone] 11/05/2024 Monroe Meléndez Assessments Encounter Date Diagnosis (ICD Code) Assessment Notes Treatment Notes Treatment Clinical Notes Section Notes 02/26/[address] ine general physical examination (ICD-10 - Z00.00) 04/23/2025 Encounter for administration of vaccine (ICD-10 - Z23) 03/05/2025 Prediabetes (ICD-10 - R73.09) doing well, no need for medication at this time 03/05/2025 Adult general medica l examination (ICD-10 - Z00.00) labs reviewed and discussed with patient 02/26/2025 Prediabetes (ICD-10 - R73.09) 03/05/2025 Pure hypercholesterolemia (ICD-10 - E78.00) at good level, will continue current regiment 02/26/2025 Pure hypercholesterolemia (ICD-10 - E78.00) 03/05/2025 Vitamin D deficiency (ICD-10 - E55.9) good replacement, will continue current regiment 02/26/2025 Vitamin D deficiency (ICD-10 - E55.9) 03/05/2025 Ankle pain, unspecif ied chronicity, unspecified laterality (ICD-10 - M25.579) order faxed [place] [facility] [place] [facility], pending diagnostic testing 03/05/2025 Depression screening (ICD-10 - Z13.31) negative screen Plan Of Treatment Pending Test Test Name Order Date XR GI SERIES 11/18/2015 BONE DENSITY DEXA 02/13/2021 ECHO 01/23/2019 MM tomosynthesis screening BI 02/13/2021 XR DEXA axial skeleton 04/14/2021 Next Appt Details Provider Name:Monroe baptiste, 08/29/2025 07:15:00 AM, [address] [place] [address], [address], [phone], Provider Name:Monroe baptiste, 09/05/2025 10:45:00 AM, [address] [place] [address], [address], [phone], Provider Name:Monroe bartlettr, 03/03/2026 07:00:00 AM, [address] [place] [address], [address], [phone], Provider Name:Monroe baptiste, 03/10/2026 10:30:00 AM, [address] [place] [address], [address], [phone], Insurance Providers Payer Name Payer Address Payer Phone Subscriber Number Group Number Insured Name Patient Relationship to Insured Coverage Start Date Coverage End Date [employer] PLAN [facility] [address] [place] [phone] [id number] Adelaida Rosas Self - patient is the insured 0 MEDICARE [employer] [address] [place] [address] [id number] Adelaida Rosas Self - patient is the insured Medical (General) History Medical History History ICD Code hematuria worked up 2008 colonoscopy 2006; colonoscop y done 06/23/[address] 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
--- OUTSIDE RECORDS SUMMARY | 2025-06-12 07:43 | XMS_ITS | Patient Health Record ---
Author Organization [facility] Address [address] [place] [address] Care Team Providers Care Medical Insurance Clerk Name Role Phone Monroe Meléndez MD Primary Care Provider German Charlton Unavailable [phone] Reason For Referral No Information Medications Medication SIG (Take, Route, Fr equency, Duration) Notes Start Date End Date Status Hyoscyamine 0.125 mg 1 TAB Sublingual Active Omeprazole 20 MG 1 capsule Orally Onc e a day/ NEEDED Active Problems Problem Type SNOMED Code ICD Code Onset Dates Problem Status W/U Status Risk Notes Problem Screening for malignant neoplasm of colon (858494938) Encounter for screening for malignant neoplasm of colon (Z12.11) Active confirmed Problem Screening for malignant neoplasm of rectum (284660717) Encounter for screening for malignant neoplasm of rectum (Z12.12) Active confirmed Problem Gastroesophageal reflux disease (525702500) Gastroesophageal reflux disease, esophagitis presence not specified (K21.9) Active confirmed Plan Of Treatment Pending Test Test Name Order Date GI BIOPSY 06/23/2016 Future Test Test Name Order Date UPPER GI ENDOSCOPY 04/06/2016 COLONOSCOPY 04/06/2016 Insurance Providers Payer Name Payer Address Payer Phone Subscriber Number Group Number Insured Name Patient Relationship to Insured Coverage Start Date Coverage End Date [facility] [employer] [address] [place] [address] [id number] TAMAR WOODWARD Self - patient is the insured Medical (General) History Medical History History ICD Code Negative screening colonosocpy 01-12-2007 --diverticulosis History of infectious colitis--[place] a History of elevated liver function tests --neg. w/u in 2006 Denies AR,DM,CVA,Lung disease,renal dise ase Surgical History Surgery Date(Month/Year) Right ankle fusion
== END 2025-06-12 07:40 | disposition home or self-care (01) ==
LOC: HO.MAMMO 07:39
PROVIDERS: PCP Internal Medicine; Visit Provider Internal Medicine
DX: Z12.31 Encounter for screening mammogram for malignant neoplasm of breast (principal)
CPT/HCPCS: 77063; 77067

== ENCOUNTER → 2025-06-12 08:00 | Outpatient (BNV) | payer MEDICARE, SELFPAY | PROVIDERS: PCP Internal Medicine; Visit Provider Internal Medicine | DX: Z12.31 Encounter for screening mammogram for malignant neoplasm of breast (principal) | CPT/HCPCS: 77063; 77067 ==

== ENCOUNTER 2025-08-05 13:02 | Outpatient (REF) | payer MEDICARE, SELFPAY ==
--- OUTSIDE RECORDS SUMMARY | 2024-02-21 03:00 | XMS_ITS ---
Author Organization Monroe Meléndez MD Address [address] [place], [place] [id number] Care Team Providers Care Green Chain Offbearer Name Role Phone Monroe Meléndez Primary Care Provider [phone] Results Component Value Reference Range Notes Complete Blood Count Auto Di ff Reviewed date:02/21/2024 12:42:59 PM Interpretation: Performing Lab:[facility], [address] [place] [phone] Notes/Report: White Blood Count 6.1 4.8-10.8 X10*3/uL Red Blood Count 4.25 4.20-5.50 X10*6/uL Hemoglobin 12.9 12.0-16.0 g/dl Hematocrit 39.3 37.0-47.0 % Mean Corpuscular Volume 92.5 80.0-98.0 fL Mean Corpuscular Hemoglobin 30.4 27.0-33.0 pg Mean Corpuscular HGB Conc 32.8 31.0-35.0 g/dl Red Cell Distribution Width 13.2 11.0-16.0 % Platelet Count 221 160-400 X10*3/uL Mean Platelet Volume 11.3 9.4-12.3 fL Neutrophils Percent Auto 50.0 45-73 % Imm Gran Pct Auto 0.2 0.0-0.4 % Lymphocytes Percent Auto 34.6 20-40 % Monocytes Percent Auto 8.9 2-11 % Eosinophils Percent Auto 4.8 0-4 % Basophils Percent Auto 1.5 0-2 % NRBC Pct Auto 0.0 0.0-0.2 /100WBC Neutrophils Absolute Auto 3.0 2.0-8.3 x10*3/u L Imm Gran Abs Auto 0.01 0.00-0.03 X10*3/uL Lymphocytes Absolute Auto 2.1 1.2-4.9 X10*3/u L Monocytes Absolute Auto 0.5 0.1-1.2 X10*3/uL Eosinophils Absolute Auto 0.3 0.0-0.4 X10*3/u L Basophils Absolute Auto 0.1 0.0-0.2 X10*3/uL NRBC Abs Auto 0.000 0.0-0.012 X10*3/uL Liver Panel Reviewed date:02/21/2024 02:48:26 PM Interpretation: Performing Lab:[facility], [address] [place] [phone] Notes/Report: Bilirubin Direct 0.2 0.0-0.5 mg/dL Lipid Panel Reviewed date:02/21/2024 02:49:22 PM Interpretation: Performing Lab:[facility], [address] [place] [phone] Notes/Report: Triglycerides 73 <150 mg/dL Desirable Triglyceride: less than 150 mg/dL Borderline High Triglyceride 150-199 mg/dL High Triglyceride: 200-499 mg/dL Very High Triglyceride: greater than or equal to 5OO mg/dL Cholesterol 141 <200 mg/dL Desirable Cholesterol: less than 200 mg/dL Borderline High Cholesterol: 200-239 mg/dL High Cholesterol: greater than 239 mg/dL LDL Cholesterol Calculated 63 <100 mg/dL Desirable LDL: less than 100 mg/dL Near Optimal/Above Optimal LDL: 110-129 mg/dL Borderline High LDL: 130-159 mg/dL High LDL: 160-189 mg/dL Very High LDL: greater than or equal to 190 mg/dL HDL Cholesterol 64 >40 mg/dL Desirable HDL: greater than 40 mg/dL Note: This HDL assay may give artificially low results in patients with liver disease. Vitamin D 25-OH Total Reviewed date:02/21/2024 04:27:34 PM Interpretation: Performing Lab:[facility], [address] [place] [phone] Notes/Report: Vitamin D 25-OH Total 50.0 >30 ng/mL Health Based Reference Values* < 20 ng/mL Deficient 20-30 ng/mL Insufficient > 30 ng/mL Sufficient *Stacie NAM. N Engl J Med. 2007;357:266-280 Care must be taken in interpreting Vitamin D results from different laboratories and methodologies. Published data demonstrated that results from patients undergoing hemodialysis may show a negative bias when tested with various automated 25-OH vitamin D assays when compared to LC-MS/MS. When testing samples from patients whose predominant form of Vitamin D is Vitamin D2, such as patients receiving Vitamin D2 supplementation, results that are subtherapeutic should be confirmed with another method such as LC-MS/MS. Hemoglobin A1c Reviewed date:02/21/2024 12:38:28 PM Interpretation: Performing Lab:[facility], [address] [place] [phone] Notes/Report: Hemoglobin A1c % 5.6 <6.0 % Hemoglobin A1C Reference Range Adults: 4.8 - 6.0 % Non diabetic: < 6.0 % Goal: < 7.0 % Additional Action Suggested: > 8.0 % Note: Hemoglobin A1c results are invalid for patients with abnormal amounts of HbF. Blood transfusions may impact the HbA1c concentration in the patient sample. Estimated Average Glucose 114 eAG = Estimated average glucose which is %A1C expressed as average glucose, using the formula of the H9N-Niisvah Average Glucose study (ADAG), Diabetes Care, Vol.31,#8, Mar. 2007 REASON FOR VISIT FASTING LABS Encounters Encounter Location Date Provider Diagnosis Monroe Meléndez MD [address] [place] [address] Drive [address] [place], [place] [id number] 02/21/2024 Monroe Meléndez Prediabetes R73.09 ; Abnormal LFTs R79.89 and Vitamin D deficiency E55.9 Assessments Encounter Date Diagnosis (ICD Code) Assessment Notes Treatment Notes Treatment Clinical Notes Section Notes 02/21/2024 Prediabetes (ICD-10 - R73.09) 02/21/2024 Abnormal LFTs (ICD-10 - R79.89) 02/21/2024 Vitamin D deficiency (ICD-10 - E55.9) Plan Of Treatment Next Appt Details Provider Name:Monroe Hightower ier, 08/29/2025 07:15:00 AM, [address], [address], [place], [phone], Provider Name:Monroe Hightower ier, 09/05/2025 10:45:00 AM, [address], [address], [place], [phone], Provider Name:Monroe Hightower ier, 03/03/2026 07:00:00 AM, [address], [address], [place], [phone], Provider Name:Monroe Hightower ier, 03/10/2026 10:30:00 AM, [address] [facility], [address], [place], [phone], Progress Notes * TRACE OscarOB:1955 (7 0 yo F)Acc No.[id number]:02/21/2024 Progress Note Patient: Adelaida ROJO Provider: Shireen Meléndez MD :1955 A ge:68 Y S ex:Female Date:02/21/2024 Address:[address] [place] [address] Rochelle gordon [id number] Subjective: * Chief Complaints: * 1 . FASTING LABS. * Medical History: Objective: * Vitals: Assessment: * Assessment: 1. P rediabetes - R73.09 (Primary) 2 . A bnormal LFTs - R79.89 ?3. V itamin D deficiency - E55.9 Plan: * Treatment: 2. A bnormal LFTs L AB: Comprehensive [place]. Panel Fast (Order Cancelled) L AB: Microalbumin, Random (Order Cancelled) L AB: UA ClnCatch+Micro w/rflx Cult (Order Cancelled) L AB: Complete Blood Count Auto Diff (Collection Date & Time - 02/21/2024 08:00 AM) L AB: Liver Panel (Collection Date & Time - 02/21/2024 08:00 AM) L AB: Lipid Panel (Collection Date & Time - 02/21/2024 08:00 AM) L AB: Vitamin D 25-OH Total (Collection Date & Time - 02/21/2024 08:00 AM) L AB: Hemoglobin A1c (Collection Date & Time - 02/21/2024 08:00 AM) 3. V itamin D deficiency L AB: Comprehensive [place]. Panel Fast (Order Cancelled) L AB: Microalbumin, Random (Order Cancelled) L AB: UA ClnCatch+Micro w/rflx Cult (Order Cancelled) L AB: Complete Blood Count Auto Diff (Collection Date & Time - 02/21/2024 08:00 AM) L AB: Liver Panel (Collection Date & Time - 02/21/2024 08:00 AM) L AB: Lipid Panel (Collection Date & Time - 02/21/2024 08:00 AM) L AB: Vitamin D 25-OH Total (Collection Date & Time - 02/21/2024 08:00 AM) L AB: Hemoglobin A1c (Collection Date & Time - 02/21/2024 08:00 AM) * Procedure Codes: 3 6415 VENIPUNCT, ROUTINE* * * The named appointment provid er may or may not be the originator of this progress note, and it is not deemed complete until electronically signed by the appointment provider. Sign off status: Pending * Provider: Shireen Meléndez MD Date: 0 02/21/2024 Generated for Mandeep larkin/Rober/Rodolfo on: 1 10/06/2024 07:01 PM EST
--- OUTSIDE RECORDS SUMMARY | 2024-03-01 09:30 | XMS_ITS ---
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 Name Role Phone Monroe Meléndez Primary Care Provider [phone] Allergies No Known Allergies Results Component Value Reference Range Notes Microalbumin, Random Reviewed date:03/02/2024 12:22:41 PM Interpretation: Performing Lab:[facility], [address] [place] [phone] Notes/Report: Creatinine Urine 100.35 Microalbumin Urine 5.0 Microalbum/Creatinine Ratio Ur 4.9 <30 ug/mg cr Albumin/Creatinine Ratio Reference Ranges: Normal: < 30 ug/mg creatinine Microalbuminuria: 30 - 300 ug/mg creatinine Clinical Albuminuria: > 300 ug/mg creatinine UA ClnCatch+Micro w/rflx Cul t Reviewed date:03/01/2024 04:15:28 PM Interpretation: Performing Lab:[facility], [address] [place] [phone] Notes/Report: Urine, Clean Catch Color Urine Yellow Appearance Urine Clear PH 5.5 5.0-9.0 Glucose Urine UA Negative Negative mg/dL Urine Blood Negative Negative Specific [place] - Urine 1.010 1.005-1.025 Urine Protein Negative Neg-Trace mg/dL Urine Ketones Trace Negative mg/dL Nitrite Urine Negative Negative Leukocyte Esterase Urine Negative Negative RBC Urine 0-2 0-2 /HPF WBC Urine 0-5 0-5 /HPF Squamous Epithelial Cell Urine 0-2 0-2 /HPF Bacteria Urine None Seen None Seen Hyaline Casts Urine 0-2 0-2 /LPF REASON FOR VISIT ANNUAL EXAM Medications Medication SIG (Take, Route, Frequency, Duration) Notes Start Date End Date Status Fluticasone Propionate 50 MCG/ACT 1 spray in each nostril Nasally Twice a day for 30 day(s) 11/24/2023 Active Atorvastatin Calcium 40 MG TAKE 1 TABLET BY MOUTH EVERY DAY for 90 Active Levsin/SL 0.125 MG 1 tablet under the tongue and allow to dissolve before meals as needed Sublingual once per day for 20 days 11/18/2015 Not-Taking Omeprazole 20 MG 1 capsule Orally Onc e a day for 30 day(s) 11/18/2015 Not-Taking Vitamin D (Cholecalciferol) 1000 UNIT 1 tablet Orally Once a day 12/21/2016 Active Omeprazole 20 MG 1 capsule Orally Onc e a day for 30 Not-Taking Aspirin 81 81 MG 1 tablet Orally Once a day for 30 day(s) Active Social History Tobacco Use: Social History Observation Description Date Details (start date - stop date) Never Smoker NA - NA Tobacco Use/Smoking Question Answer Notes Patient is a nonsmoker Additional Findings: Tobacco Non-User Cu rrent non-smoker, currently using no form of tobacco Alcohol Screen Question Answer Notes Did you have a drink containing alcohol in the p ast year? No Points 0 Interpretation Negative Problems Problem Type SNOMED Code ICD Code Onset Dates Problem Status W/U Status Risk Notes Problem [id number] History of pacemaker (Z95.0) Active confirmed Vital Signs Blood pressure systolic 138 mm Hg 03/01/20 24 Blood pressure diastolic 70 mm Hg 024 Height 60 in 03/01/2024 Weight 149 lbs 03/01/2024 BMI 29.10 kg/m2 03/01/2024 Encounters Encounter Location Date Provider Diagnosis Monroe Meléndez MD [address] [place] [address] [address] [place], [place] [id number] 03/01/2024 Monroe Meléndez Prediabetes R73.09 ; Annual physical exam Z00.00 ; History of hematuria Z87.448 ; Pure hypercholesterolemia E78.00 ; History of pacemaker Z95.0 ; Vitamin D deficiency E55.9 and Encounter for screening for depression Z13.31 Assessments Encounter Date Diagnosis (ICD Code) Assessment Notes Treatment Notes Treatment Clinical Notes Section Notes 03/01/2024 Prediabetes (ICD-10 - R73.09) good a1c, no need for medicarion at this time 03/01/2024 Annual physical exam (ICD-10 - Z00.00) labs reviewed and discussed with patient 03/01/2024 History of hematuria (ICD-10 - Z87.448) had been evaluated in past, will continue to monitor 03/01/2024 Pure hypercholesterolemia (ICD-10 - E78.00) doing well on meds, will continue current regiment 03/01/2024 History of pacemaker (ICD-10 - Z95.0) 03/01/2024 Vitamin D deficiency (ICD-10 - E55.9) stabe, will continue current regiment 03/01/2024 Encounter for screen ing for depression (ICD-10 - Z13.31) negative screen Plan Of Treatment Treatment Notes Assessment Notes Prediabetes good a1c, no need fo r medicarion at this time Annual physical exam labs reviewed and d iscussed with patient History of hematuria had been evaluated in past, will continue to monitor Pure hypercholesterolemia doing well on meds, will continue current regiment Vitamin D deficiency stabe, will continu e current regiment Encounter for screening for depression n egative screen Next Appt Details Follow Up: 1 Year, Reason: Provider Name:Monroe baptiste, 08/29/2025 07:15:00 AM, [address] [place] [address], [address], [phone], Provider Name:Monroe baptiste, 09/05/2025 10:45:00 AM, [address] [place] [address], [address], [phone], Provider Name:Monroe baptiste, 03/03/2026 07:00:00 AM, [address] [place] [address], [address], [phone], Provider Name:Monroe baptiste, 03/10/2026 10:30:00 AM, [address] [place] [address], [address], [phone], Progress Notes * Oscar WOODWARDOB:1955 ([age] yo F)Acc No.[id number]:03/01/2024 Progress Notes Patient: Adelaida Plunkett Provider: Shireen Meléndez MD :1955 A ge:68 Y S ex:Female Date:03/01/2024 Address:[address] [place] [address], [id number] Subjective: * Chief Complaints: * A NNUAL EXAM * HPI: D epression Screening: PHQ-9 L ittle interest or pleasure in doing things N ot at all, F eeling down, depressed, or hopeless N ot at all, T rouble falling or staying asleep, or sleeping too much N ot at all, F eeling tired or having little energy N ot at all, P oor appetite or overeating N ot at all, F eeling bad about yourself or that you are a failure, or have let yourself or your family down N ot at all, T rouble concentrating on things, such as reading the newspaper or watching television N ot at all, M oving or speaking so slowly that other people could have noticed; or the opposite, being so fidgety or restless that you have been moving around a lot more than usual N ot at all, T houghts that you would be better off or of hurting yourself in some way N ot at all, T otal Score 0 . C ommunication Needs: Communication Needs D oes the patient have a hearing impairment N o, D oes the patient have a vision impairment? Y es, I f yes, what is the vision impairment? G lasses, D oes the patient have a cognition impairment? N o. F all Risk: History H ave you had any falls with injury in the past year? N o, H ave you had two or more falls in the past year? N o. S GENE Questions: SDOH Questions I n the past year have you been worried about losing housing? N o, I n the past year have you or any family members you live with been unable to get any of the following when it was really needed? Check all that apply: N one. S ymptom(s): patient is a 68 yo female here for annual visit with review of recent labs and follow up of chronic issues. * ROS: G eneral/Constitutional: Patient denies f atigue , headache. C hange in appetite?denies. C hills d enies. F ever d enies. O phthalmologic: Blurred vision d enies. D ischarge d enies. P ain d enies. E NT: Patient denies d ecreased sense of smell , any loss of taste , sore throat. D ecreased hearing d enies. S ore throat d enies. S wollen glands d enies. E ndocrine: Cold intolerance d enies. E xcessive thirst d enies. H eat intolerance d enies. W eight loss d enies. R espiratory: Cough d enies. S hortness of breath at rest d enies. S hortness of breath with exertion d enies. W heezing d enies. C ardiovascular: Chest pain at rest d enies. C hest pain with exertion?denies. I rregular heartbeat d enies. S hortness of breath d enies. ? G astrointestinal: Abdominal pain d enies. C hange in bowel habits d enies. D iarrhea d enies. N ausea d enies. R ectal bleeding d enies. V omiting d enies . G enitourinary: Blood in urine d enies. D ifficulty urinating d enies. F requent urination d enies. U rinary incontinence D enies. M usculoskeletal: Patient denies m uscle aches. P ainful joints d enies. W eakness d enies. P eripheral Vascular: Patient denies r ed and blue toes. S kin: Dry skin d enies. I tching d enies. D enies?Mole(s), changes in moles, new moles or any lesions of concern. D enies P hotosensitivity. R js d enies. N eurologic: Dizziness d enies. F ainting d enies. H eadache?denies. * Medical History: * Surgical History: * Hospitalization/Major Diagno stic Procedure: * Family History: F ather: 63 yrs, coronary artery disease. M other: 59 yrs, coronary artery disease. 1 brother(s) , 3 sister(s) . 3 son(s) . . 4 brothers Father- Lung Cancer Mother Respiratory No Family history of drug abuse or mental illness, No pertinent family medical history, No pertinent family medical history, No pertinent family medical history, Denies mental health/substance abuse family history. * Social History: T obacco Use: T obacco Use/Smoking P atient is a n onsmoker, A dditional Findings: Tobacco Non-User C urrent non-smoker, currently using no form of tobacco. D rugs/Alcohol: A lcohol Screen D id you have a drink containing alcohol in the past year? N o, P oints 0 , I nterpretation N egative. M iscellaneous: C affeine: yes, frequency:, 1-2 cups per day. Children: yes. no Community involvements. no Exercise. Home smoke detector use: yes. Living with: spouse. Marital status: . Occupation: works part-time. Pets: none. Travel outside of the [place]: yes, [place]. * Medications: T akingAspirin 81 81 MG [...] Verified] Objective: * Vitals: H t: 60, Wt:149, BMI:29.10, BP:138/70. * P ast Orders: L ab:Hemoglobin A1c (Order Date - 02/21/2024) (Collection Date - 02/21/2024) Value Reference Range Hemoglobin A1c % 5.6 <6.0 - % Estimated Average Glucose 114 - mg/dL L ab:Comprehensive Met. Panel (Order Date - 02/21/2024) (Collection Date - 02/21/2024) Value Reference Range Sodium 144 135-145 - mmol/L Bilirubin Total 0.6 0.0-1.0 - mg/dL Aspartate Amino Transferase 26 5-31 - U/L Alanine Aminotransferase 48 H 0-31 - U/L Total Protein 6.9 6.5-8.0 - g/dL Albumin Level 3.7 3.5-5.0 - g/dL Alkaline Phosphatase 117 39-117 - U/L Potassium 4.4 3.3-5.1 - mmol/L Chloride 109 H 96-108 - mmol/L Carbon Dioxide 27 22-29 - mmol/L Anion Gap 12 12-20 - Blood Urea Nitrogen 10 9-16 - mg/dL Creatinine 0.74 0.5-1.4 - mg/dL Estimated Glomerular Filt Rate > 60 - Glucose Random 97 60-115 - mg/dL Calcium 9.9 8.4-10.2 - mg/dL L ab:Complete Blood Count Auto Diff (Order Date - 02/21/2024) (Collection Date - 02/21/2024) Value Reference Range White Blood Count 6.1 4.8-10.8 - X10*3/uL Red Blood Count 4.25 4.20-5.50 - X10*6/uL Hemoglobin 12.9 12.0-16.0 - g/dl Hematocrit 39.3 37.0-47.0 - % Mean Corpuscular Volume 92.5 80.0-98.0 - fL Mean Corpuscular Hemoglobin 30.4 27.0-33.0 - pg Mean Corpuscular HGB Conc 32.8 31.0-35.0 - g/ dl Red Cell Distribution Width 13.2 11.0-16.0 - % Platelet Count 221 160-400 - X10*3/uL Mean Platelet Volume 11.3 9.4-12.3 - fL Neutrophils Percent Auto 50.0 45-73 - % Imm Gran Pct Auto 0.2 0.0-0.4 - % Lymphocytes Percent Auto 34.6 20-40 - % Monocytes Percent Auto 8.9 2-11 - % Eosinophils Percent Auto 4.8 H 0-4 - % Basophils Percent Auto 1.5 0-2 - % NRBC Pct Auto 0.0 0.0-0.2 - /100WBC Neutrophils Absolute Auto 3.0 2.0-8.3 - x10* 3/uL Imm Gran Abs Auto 0.01 0.00-0.03 - X10*3/uL Lymphocytes Absolute Auto 2.1 1.2-4.9 - X10* 3/uL Monocytes Absolute Auto 0.5 0.1-1.2 - X10*3/ uL Eosinophils Absolute Auto 0.3 0.0-0.4 - X10* 3/uL Basophils Absolute Auto 0.1 0.0-0.2 - X10*3/ uL NRBC Abs Auto 0.000 0.0-0.012 - X10*3/uL L ab:Liver Panel (Order Date - 02/21/2024) (Collection Date - 02/21/2024) Value Reference Range Bilirubin Direct 0.2 0.0-0.5 - mg/dL L ab:Lipid Panel (Order Date - 02/21/2024) (Collection Date - 02/21/2024) Value Reference Range Triglycerides 73 <150 - mg/dL Cholesterol 141 <200 - mg/dL LDL Cholesterol Calculated 63 <100 - mg/dL HDL Cholesterol 64 >40 - mg/dL L ab:Vitamin D 25-OH Total (Order Date - 02/21/2024) (Collection Date - 02/21/2024) Value Reference Range Vitamin D 25-OH Total 50.0 >30 - ng/mL * Examination: G eneral Examination: GENERAL APPEARANCE: w ell developed, well nourished, in no acute distress. HEAD: n ormocephalic, atraumatic. EYES: p upils equal, round, reactive to light and accommodation, sclera non-icteric. EARS: n ormal. ORAL CAVITY: m ucosa moist. THROAT: c lear. NECK/THYROID: n khushi supple, full range of motion, no cervical lymphadenopathy, no bruits. SKIN: w arm and dry, no suspicious lesions. HEART: r egular rate and rhythm, S1, S2 normal, no murmurs.? LUNGS: c lear to auscultation bilaterally. BREASTS: N o mass, no lump. ABDOMEN: s oft, nontender, nondistended, bowel sounds present, normal, no organomegaly , no masses palpable. RECTAL EXAM: d one by seal skinner. FEMALE GENITOURINARY: d one by seal skinner. EXTREMITIES: n o clubbing, cyanosis, or edema. NEUROLOGIC: n onfocal, motor strength normal upper and lower extremities, sensory exam intact. Assessment: * Assessment: 1. A nnual physical exam - Z00.00 (Primary) 2 . P rediabetes - R73.09 3 . H istory of hematuria - Z87.448 4 . P ure hypercholesterolemia - E78.00 5 . H istory of pacemaker - Z95.0 6 . V itamin D deficiency - E55.9 7 . E ncounter for screening for depression - Z13.31 Plan: * Treatment: 2. P rediabetes L AB: Microalbumin, Random L AB: UA ClnCatch+Micro w/rflx Cult Notes: good a1c, no need for medicarion at this time. 3. H istory of hematuria L AB: Microalbumin, Random L AB: UA ClnCatch+Micro w/rflx Cult Notes: had been evaluated in past, will continue to monitor. 4. P ure hypercholesterolemia L AB: Microalbumin, Random L AB: UA ClnCatch+Micro w/rflx Cult Notes: doing well on meds, will continue current regiment. 5. V itamin D deficiency Notes: stabe, will continue current regiment. 6. E ncounter for screening for depression Notes: negative screen. * Procedure Codes: * Follow Up: 1 Year * * Sign off status: Completed true * Provider: Shireen Meléndez MD Date: 0 03/01/2024 Generated for Mandeep Hutchinson/Rodolfo on: 1 10/06/2024 07:00 PM EST History and Physical Notes * HPI (History of Present Illness) Category Sub-Category Detail Notes Category Not es Symptom(s) patient is a 68 yo female here for annual visit with review of recent labs and follow up of chronic issues. Depression Screening PHQ-9 Little inte rest or pleasure in doing things: Not at all Feeling down, depressed, or hopeless: No t at all Trouble falling or staying asleep, or sl eeping too much: Not at all Feeling tired or having little energy: N ot at all Poor appetite or overeating: Not at all Feeling bad about yourself o r that you are a failure, or have let yourself or your family down: Not at all Trouble concentrating on thi ngs, such as reading the newspaper or watching television: Not at all Moving or speaking so slowly that other people could have noticed; or the opposite, being so fidgety or restless that you have been moving around a lot more than usual: Not at all Thoughts that you would be b ofe off or of hurting yourself in some way: Not at all Total Score: 0 SDOH Questions SDOH Questions In the past year have you been worried about losing housing?: No In the past year have you or any family members you live with been unable to get any of the following when it was really needed? Check all that apply:: None Fall Risk History Have you had any falls with injury i n the past year?: No Have you had two or more falls in the year?: No Communication Needs Communication Needs Does the patient have a hearing impairment: No Does the patient have a vision impairmen t?: Yes If yes, what is the vision impairment?: Glasses Does the patient have a cognition impair ment?: No Examination Category Sub-Category Detail Notes Category Not es General Examination GENERAL APPEARANCE: well dev eloped, well nourished, in no acute distress HEAD: normocephalic, atrau matic EYES: pupils equal, round, reactive to light and accommodation, sclera non-icteric EARS: normal THROAT: clear NECK/THYROID: neck supple, full ra nge of motion, no cervical lymphadenopathy, no bruits HEART: regular rate and rhy thm, S1, S2 normal, no murmurs LUNGS: clear to auscultatio n bilaterally ABDOMEN: soft, nontender, non distended, bowel sounds present, normal, no organomegaly , no masses palpable NEUROLOGIC: nonfocal, motor stre ngth normal upper and lower extremities, sensory exam intact SKIN: warm and dry, no yecenia picious lesions EXTREMITIES: no clubbing, cyanosi s, or edema BREASTS: No mass, no lump RECTAL EXAM: done by seal skinner FEMALE GENITOURINARY: done by seal skinner ORAL CAVITY: mucosa moist
--- OUTSIDE RECORDS SUMMARY | 2024-05-15 03:30 | XMS_ITS ---
Author Organization Monroe Meléndez MD Address [address] [place] [phone] Care Team Providers Care Concrete Spreader Name Role Phone Monroe Meléndez Primary Care Provider REASON FOR VISIT HDF Immunizations Vaccine Route Administration Date Status Comme nts Influenza High Dose IM Intramuscular 05/15/2024 Administer ed Encounters Encounter Location Date Provider Diagnosis Monroe Meléndez MD [address] [facility] [address] [place] [phone] 05/15/2024 Monroe Meléndez Encounter for immunization Z23 Assessments Encounter Date Diagnosis (ICD Code) Assessment Notes Treatment Notes Treatment Clinical Notes Section Notes 05/15/2024 Encounter for immunization (ICD-10 - Z23) Plan Of Treatment Next Appt Details Provider Name:Monroe baptiste, 08/29/2025 07:15:00 AM, [address] [place] [address], [address], [phone], Provider Name:Monroe baptiste, 09/05/2025 10:45:00 AM, [facility], [address], [phone], Provider Name:Monroe baptiste, 03/03/2026 07:00:00 AM, [address], [address], [place], [place], [phone], Provider Name:Monroe Hightower ier, 03/10/2026 10:30:00 AM, [address], [address], [place], [place], [phone], Progress Notes * Oscar WOODWARDOB:1955 (7 0 yo F)Acc No.[id number]:05/15/2024 Progress Note Patient: Adelaida ROJO Provider: Shireen Meléndez MD :1955 A ge:69 Y S ex:Female Date:05/15/2024 Address:[address] [place] [address] [facility] Subjective: * Chief Complaints: * 1 . HDF. * Medical History: Objective: * Vitals: Assessment: * Assessment: 1. E ncounter for immunization - Z23 (Primary) Plan: * Treatment: * Immunizations: Influenza High Dose : 0.5 mL (Dose No:1) (Route: Intramuscular) given by Neda Madison , Office Staff on Right Deltoid * Procedure Codes: 9 0662 FLU VACC PRSV FREE INC ANTIG, G0008 ADMN FLU VAC NO FEE SCHED SAME DAY * * The named appointment provid er may or may not be the originator of this progress note, and it is not deemed complete until electronically signed by the appointment provider. Sign off status: Pending * Provider: Shireen Meléndez MD Date: 0 05/15/2024 Generated for Mandeep larkin/Rober/Nileshsmitting on: 10/06/2024 07:01 PM EST
--- OUTSIDE RECORDS SUMMARY | 2024-09-04 10:48 | XMS_ITS ---
Author Organization Monroe Meléndez MD Address 10 [facility] [address] [place] [phone] Care Team Providers Care Lighthouse Keeper Name Role Phone Monroe Meléndez Primary Care Provider Encounters Encounter Location Date Provider Diagnosis Monroe Meléndez MD 10 [facility] [address] [place] [phone] 09/04/2024 Monroe Meléndez Plan Of Treatment Next Appt Details Provider Name:Monroe baptiste, 08/29/2025 07:15:00 AM, [address] [place] [address], [address], [phone], Provider Name:Monroe baptiste, 09/05/2025 10:45:00 AM, [address] [place] [address], [address], [phone], Provider Name:Monroe baptiste, 03/03/2026 07:00:00 AM, [address] [place] [address], [address], [phone], Provider Name:Monroe baptiste, 03/10/2026 10:30:00 AM, [address] [place] [address], [phone], Progress Notes * Oscar WOODWARDOB:1955 ([age] yo F)Acc No.[id number]:09/04/2024 Patient: Dorian meadowsWillisle :1955 A ge:69 Y S ex:Female Address:[address] [place] [address], [place] [address] * true * Date: Generated for Mandeep larkin/Rober/eTransmitting on: 10/06/2024 07:00 PM EST
--- OUTSIDE RECORDS SUMMARY | 2024-09-04 10:52 | XMS_ITS ---
Author Organization Monroe Meléndez MD Address 10 [facility] [address] [place] [phone] Care Team Providers Care Behavioral Consultant Name Role Phone Monroe Meléndez Primary Care Provider [phone] REASON FOR VISIT refill Encounters Encounter Location Date Provider Diagnosis Monroe Meléndez MD [address] [place] [address] [place] [phone] 09/04/2024 Monroe Meléndez Plan Of Treatment Next Appt Details Provider Name:Monroe baptiste, 08/29/2025 07:15:00 AM, [address] [place] [address], [address], [phone], Provider Name:Monroe baptiste, 09/05/2025 10:45:00 AM, [address] [place] [address], [address], [phone], Provider Name:Monroe baptiste, 03/03/2026 07:00:00 AM, [address] [place] [address], [address], [phone], Provider Name:Monroe baptiste, 03/10/2026 10:30:00 AM, [address], [address], [phone], Progress Notes * Oscar WOODWARDOB:1955 ([age] yo F)Acc No.[id number]:09/04/2024 Patient: Adelaida Plunkett :1955 A ge:69 Y S ex:Female Address:[address] [place] [address], [place] [address] * true * Date: Generated for Mandeep larkin/Rober/eTransmitting on: 10/06/2024 07:00 PM EST
--- OUTSIDE RECORDS SUMMARY | 2024-11-05 05:29 | XMS_ITS ---
Author Organization Monroe Meléndez MD Address 10 [facility] [address] [place] [phone] Care Team Providers Care Press Bucker Name Role Phone Monroe Meléndez Primary Care Provider [phone] REASON FOR VISIT HCC Risk Codes 03/05 Encounters Encounter Location Date Provider Diagnosis Monroe Meléndez MD [address] [place] [address] [place] [phone] 11/05/2024 Monroe Meléndez Plan Of Treatment Next Appt Details Provider Name:Monroe baptiste, 08/29/2025 07:15:00 AM, [address] [place] [address], [address], [phone], Provider Name:Monroe baptiste, 09/05/2025 10:45:00 AM, [address] [place] [address], [address], [phone], Provider Name:Monroe baptiste, 03/03/2026 07:00:00 AM, [address] [place] [address], [address], [phone], Provider Name:Monroe baptiste, 03/10/2026 10:30:00 AM, [address], [address], [place], [place], [phone], Progress Notes * Oscar WOODWARDOB:1955 ([age] yo F)Acc No.[id number]:11/05/2024 Patient: Adelaida ROJO :1955 A ge:69 Y S ex:Female Address:[address] [place] [address], [place] [address] * true * Date: Generated for Mandeep larkin/Rober/eTransmitting on: 10/06/2024 07:00 PM EST
--- OUTSIDE RECORDS SUMMARY | 2025-02-26 02:15 | XMS_ITS ---
Author Organization Monroe Meléndez MD Address [address] [place], [place] [phone] Care Team Providers Care Transportation Security Officer Name Role Phone Monroe Meléndez Primary Care Provider Results Component Value Reference Range Notes Complete Blood Count Auto Di ff Reviewed date:02/26/2025 12:36:30 PM Interpretation: Performing Lab:[facility], [address] [place] [phone] Notes/Report: White Blood Count 6.2 4.8-10.8 X10*3/uL Red Blood Count 4.41 4.20-5.50 X10*6/uL Hemoglobin 13.3 12.0-16.0 g/dl Hematocrit 39.8 37.0-47.0 % Mean Corpuscular Volume 90.2 80.0-98.0 fL Mean Corpuscular Hemoglobin 30.2 27.0-33.0 pg Mean Corpuscular HGB Conc 33.4 31.0-35.0 g/dl Red Cell Distribution Width 13.2 11.0-16.0 % Platelet Count 231 160-400 X10*3/uL Mean Platelet Volume 11.3 9.4-12.3 fL Neutrophils Percent Auto 51.8 45-73 % Imm Gran Pct Auto 0.2 0.0-0.4 % Lymphocytes Percent Auto 31.3 20-40 % Monocytes Percent Auto 7.8 2-11 % Eosinophils Percent Auto 7.1 0-4 % Basophils Percent Auto 1.8 0-2 % NRBC Pct Auto 0.0 0.0-0.2 /100WBC Neutrophils Absolute Auto 3.2 2.0-8.3 x10*3/u L Imm Gran Abs Auto 0.01 0.00-0.03 X10*3/uL Lymphocytes Absolute Auto 1.9 1.2-4.9 X10*3/u L Monocytes Absolute Auto 0.5 0.1-1.2 X10*3/uL Eosinophils Absolute Auto 0.4 0.0-0.4 X10*3/u L Basophils Absolute Auto 0.1 0.0-0.2 X10*3/uL NRBC Abs Auto 0.000 0.0-0.012 X10*3/uL Comprehensive [place]. Panel Fa st Reviewed date:02/26/2025 12:43:14 PM Interpretation: Performing Lab:[address] [phone] Notes/Report: Sodium 140 135-145 mmol/L Potassium 4.2 3.3-5.1 mmol/L Chloride 108 96-108 mmol/L Carbon Dioxide 27 22-29 mmol/L Anion Gap 9 12-20 Blood Urea Nitrogen 13 9-16 mg/dL Creatinine 0.68 0.5-1.4 mg/dL Estimated Glomerular Filt Rate > 60 Chronic Kidney Disease: Estimated GFR < 60 mL/min/1.73m2 Severe Kidney Disease: Estimated GFR < 15 mL/min/1.73m2 Glucose Fasting 96 60-99 mg/dL Calcium 9.3 8.4-10.2 mg/dL Bilirubin Total 0.9 0.0-1.0 mg/dL Aspartate Amino Transferase 24 5-31 U/L Alanine Aminotransferase 21 0-31 U/L Total Protein 7.1 6.5-8.0 g/dL Albumin Level 4.0 3.5-5.0 g/dL Alkaline Phosphatase 87 39-117 U/L Lipid Panel Reviewed date:02/26/2025 12:36:39 PM Interpretation: Performing Lab:[address] [phone] Notes/Report: Triglycerides 90 <150 mg/dL Desirable Triglyceride: less than 150 mg/dL Borderline High Triglyceride 150-199 mg/dL High Triglyceride: 200-499 mg/dL Very High Triglyceride: greater than or equal to 5OO mg/dL Cholesterol 148 <200 mg/dL Desirable Cholesterol: less than 200 mg/dL Borderline High Cholesterol: 200-239 mg/dL High Cholesterol: greater than 239 mg/dL LDL Cholesterol Calculated 68 <100 mg/dL Desirable LDL: less than 100 mg/dL Near Optimal/Above Optimal LDL: 110-129 mg/dL Borderline High LDL: 130-159 mg/dL High LDL: 160-189 mg/dL Very High LDL: greater than or equal to 190 mg/dL HDL Cholesterol 62 >40 mg/dL Desirable HDL: greater than 40 mg/dL Note: This HDL assay may give artificially low results in patients with liver disease. Vitamin D 25-OH Total Reviewed date:02/26/2025 12:37:16 PM Interpretation: Performing Lab:[address] [phone] Notes/Report: Vitamin D 25-OH Total 62.2 >30 ng/mL Health Based Reference Values* < 20 ng/mL Deficient 20-30 ng/mL Insufficient > 30 ng/mL Sufficient *Stacie NAM. N Engl J Med. 2007;357:266-280 There is no well-established upper level of normal vitamin D levels. Some laboratories use 50 ng/mL as an upper limit of normal. However, toxicity is patient-dependent and may occur at any level. Careful correlation with the patient's presentation is necessary and, if there is concern for vitamin D toxicity, treatment should be considered irrespective of the serum level. Care must be taken in interpreting Vitamin [...] confirmed with another method such as LC-MS/MS. Microalbumin, Random Reviewed date:02/26/2025 12:36:05 PM Interpretation: Performing Lab:[address] [place] [address] Notes/Report: Creatinine Urine 96.40 Microalbumin Urine < 5.0 Microalbum/Creatinine Ratio Ur TNP <30 ug/mg cr Unable to calculate albumin/creatinine ratio due to low microalbumin or creatinine result. Hemoglobin A1c Reviewed date:02/26/2025 12:35:57 PM Interpretation: Performing Lab:[facility], [address] [place] [phone] Notes/Report: Hemoglobin A1c % 5.7 <6.0 % Hemoglobin A1C Reference Range Adults: 4.8 - 6.0 % Non diabetic: < 6.0 % Goal: < 7.0 % Additional Action Suggested: > 8.0 % Note: Hemoglobin A1c results are invalid for patients with abnormal amounts of HbF. Blood transfusions may impact the HbA1c concentration in the patient sample. Estimated Average Glucose 117 eAG = Estimated average glucose which is %A1C expressed as average glucose, using the formula of the K5B-Oztjcwr Average Glucose study (ADAG), Diabetes Care, Vol.31,#8, Mar. 2007 UA ClnCatch+Micro w/rflx Cul t Reviewed date:02/26/2025 12:44:13 PM Interpretation: Performing Lab:[facility], [address] [place] [phone] Notes/Report: Urine, Clean Catch Color Urine Yellow Appearance Urine Clear PH 6.5 5.0-9.0 Glucose Urine UA Negative Negative mg/dL Urine Blood Negative Negative Specific [place] - Urine 1.015 1.005-1.025 Urine Protein Negative Neg-Trace mg/dL Urine Ketones Negative Negative mg/dL Nitrite Urine Negative Negative Leukocyte Esterase Urine Small (1+) Negative RBC Urine 0-2 0-2 /HPF WBC Urine 0-5 0-5 /HPF Squamous Epithelial Cell Urine 0-2 0-2 /HPF Bacteria Urine None Seen None Seen Hyaline Casts Urine 0-2 0-2 /LPF REASON FOR VISIT FASTING LABS Encounters Encounter Location Date Provider Diagnosis Monroe Meléndez MD [address] [place] [address] [address] [place], [place] [phone] 02/26/2025 Monroe Meléndez Blood tests for rout ine general physical examination Z00.00 ; Prediabetes R73.09 ; Pure hypercholesterolemia E78.00 and Vitamin D deficiency E55.9 Assessments Encounter Date Diagnosis (ICD Code) Assessment Notes Treatment Notes Treatment Clinical Notes Section Notes 02/26/[address] ine general physical examination (ICD-10 - Z00.00) 02/26/2025 Prediabetes (ICD-10 - R73.09) 02/26/2025 Pure hypercholesterolemia (ICD-10 - E78.00) 02/26/2025 Vitamin D deficiency (ICD-10 - E55.9) Plan Of Treatment Next Appt Details Provider Name:Monroe San Campbell ier, 08/29/2025 07:15:00 AM, [address] [place] [address], [address] [place] [address], [phone], Provider Name:Monroe San [place] ier, 09/05/2025 10:45:00 AM, [address] [place] [address], [address], [phone], Provider Name:Monroe San [place] ier, 03/03/2026 07:00:00 AM, [address] [place] [address], [address], [phone], Provider Name:Monroe Hightower ier, 03/10/2026 10:30:00 AM, [address] [place] [address], [address], [phone], Progress Notes * TRACE, OscarOB:1955 (7 0 yo F)Acc No.[id number]:02/26/2025 Progress Note Patient: Adelaida ROJO Provider: Shireen Meléndez MD :1955 A ge:69 Y S ex:Female Date:02/26/2025 Address:[address] [place], [place] [phone] Subjective: * Chief Complaints: * 1 . FASTING LABS. * Medical History: Objective: * Vitals: Assessment: * Assessment: 1. B lood tests for routine general physical examination - Z00.00 (Primary) 2 .?Prediabetes - R73.09 3 . P ure hypercholesterolemia - E78.00 ?4. V itamin D deficiency - E55.9 Plan: * Treatment: 2. P rediabetes L AB: Complete Blood Count Auto Diff (Collection Date & Time - 02/26/2025 07:15 AM) L AB: Comprehensive [place]. Panel Fast (Collection Date & Time - 02/26/2025 07:15 AM) L AB: Lipid Panel (Collection Date & Time - 02/26/2025 07:15 AM) L AB: Vitamin D 25-OH Total (Collection Date & Time - 02/26/2025 07:15 AM) L AB: Microalbumin, Random (Collection Date & Time - 02/26/2025 07:15 AM) L AB: Hemoglobin A1c (Collection Date & Time - 02/26/2025 07:15 AM) L AB: UA ClnCatch+Micro w/rflx Cult (Collection Date & Time - 02/26/2025 07:15 AM) 3. P ure hypercholesterolemia L AB: Complete Blood Count Auto Diff (Collection Date & Time - 02/26/2025 07:15 AM) L AB: Comprehensive [place]. Panel Fast (Collection Date & Time - 02/26/2025 07:15 AM) L AB: Lipid Panel (Collection Date & Time - 02/26/2025 07:15 AM) L AB: Vitamin D 25-OH Total (Collection Date & Time - 02/26/2025 07:15 AM) L AB: Microalbumin, Random (Collection Date & Time - 02/26/2025 07:15 AM) L AB: Hemoglobin A1c (Collection Date & Time - 02/26/2025 07:15 AM) L AB: UA ClnCatch+Micro w/rflx Cult (Collection Date & Time - 02/26/2025 07:15 AM) 4. V itamin D deficiency L AB: Complete Blood Count Auto Diff (Collection Date & Time - 02/26/2025 07:15 AM) L AB: Comprehensive [place]. Panel Fast (Collection Date & Time - 02/26/2025 07:15 AM) L AB: Lipid Panel (Collection Date & Time - 02/26/2025 07:15 AM) L AB: Vitamin D 25-OH Total (Collection Date & Time - 02/26/2025 07:15 AM) L AB: Microalbumin, Random (Collection Date & Time - 02/26/2025 07:15 AM) L AB: Hemoglobin A1c (Collection Date & Time - 02/26/2025 07:15 AM) L AB: UA ClnCatch+Micro w/rflx Cult (Collection Date & Time - 02/26/2025 07:15 AM) * Procedure Codes: 3 6415 VENIPUNCT, ROUTINE* * * The named appointment provid er may or may not be the originator of this progress note, and it is not deemed complete until electronically signed by the appointment provider. Sign off status: Pending * Provider: Shireen Meléndez MD Date: 0 02/26/2025 Generated for Mandeep larkin/Rober/Nileshsmitting on: 1 10/06/2024 07:02 PM EST
--- OUTSIDE RECORDS SUMMARY | 2025-03-05 06:00 | XMS_ITS ---
Author Organization Monroe Meléndez MD Address [address] [place] [phone] Care Team Providers Care Quality Improvement Analyst Name Role Phone Monroe Meléndez Primary Care Provider Allergies No Known Allergies Results Component Value Reference Range Notes XR ankle RT min 3V Reviewed date:2025 03:50:20 PM Interpretation: Performing Lab: Notes/Report: [address] [address] XRay Report Signed Patient: Adelaida Woodward MR#: [id number] : 1955 Acct:[id number] Age/Sex: 70 / F ADM Date: 03/06/25 Loc: HO.BIRGIT Attending Dr: Monroe Meléndez MD Ordering Physician: Monroe Meléndez MD Date of Service: 03/06/25 Procedure(s): XR ankle RT min 3V Accession Number(s): [id number] cc: Monroe Meléndez MD EXAMINATION: XR ANKLE 3 OR MORE VIEWS RIGHT HISTORY: ANKLE PAIN, COMPARISON: There are no prior studies available for comparison. FINDINGS: Three views of the right ankle are submitted. Osseous mineralization is normal. The patient is status post tibiotalar arthrodesis with 3 cannulated screws, which appears solid. There is an old healed fracture of the distal fibula. No acute fracture is seen. 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 The soft tissues are unremarkable. XR/XR ankle RT min 3V IMPRESSION: Status post tibiotalar arthrodesis. 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 Electronically signed by: German Medina MD 2025 02:05 PM EDT RP Dictated By: German Medina MD Signed By: <Electronically signed by German Medina MD in OV> 03/06/25 1405 DD/ 1350 TD/TT: 03/06/25 1402 Underwear Trimmer: [place] [id number] XRay Report Signed Patient: Adelaida Woodward MR#: [id number] : 1955 Acct:[id number] Age/Sex: 70 / F ADM Date: 03/06/25 Loc: HO.XRAY Attending Dr: Monroe Meléndez MD Ordering Physician: Monroe Meléndez MD Date of Service: 03/06/25 Procedure(s): XR ank le RT min 3V Accession Number(s): [id number] cc: Monroe Meléndez MD EXAMINATION: XR ANKL E 3 OR MORE VIEWS RIGHT HISTORY: ANKLE PAIN, COMPARISON: There ar e no prior studies available for comparison. FINDINGS: Three views of the r ight ankle are submitted. Osseous mineralization is normal. The patie nt is status post tibiotalar arthrodesis with 3 cannulated screws, w hich appears solid. There is an old healed fracture of the distal fibula . No acute fracture is seen. 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 The soft tissues are unremarkable. X R/XR ankle RT min 3V IMPRESSION: Status post tibiotal ar arthrodesis. 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 Electronically jarad d by: German Medina MD 2025 02:05 PM EDT RP Dictated By: German Medina MD Signed By: <Lance kulkarni signed by German Medina MD in OV> 03/06/25 1405 DD/ 1350 TD/TT: 03/06/25 1402 Underwear Trimmer: REASON FOR VISIT ANNUAL EXAM Medications Medication [...] Once a day for 30 day(s) Active Levsin/SL 0.125 MG 1 tablet under the tongue and allow to dissolve before meals as needed Sublingual once per day for 20 days 11/18/2015 Not-Taking Omeprazole 20 MG 1 capsule Orally Onc e a day for 30 day(s) 11/18/2015 Not-Taking Social History Tobacco Use: Social History Observation [...] ast year? No Points 0 Interpretation Negative Vital Signs Blood pressure systolic 132 mm Hg 03/05/20 25 Blood pressure diastolic 74 mm Hg 025 Height 60 in 03/05/2025 Weight 157 lbs 03/05/2025 BMI 30.66 kg/m2 03/05/2025 weight is up 8 pounds since 03-01-24 Encounters Encounter Location Date Provider Diagnosis Monroe Meléndez MD [address] [place], [place] [phone] 03/05/2025 Monroe Meléndez Prediabetes R73.09 ; Adult general medical examination Z00.00 ; Pure hypercholesterolemia E78.00 ; Vitamin D deficiency E55.9 ; Ankle pain, unspecified chronicity, unspecified laterality M25.579 and Depression screening Z13.31 Assessments Encounter Date Diagnosis (ICD Code) Assessment Notes Treatment Notes Treatment Clinical Notes Section Notes 03/05/2025 Prediabetes (ICD-10 - R73.09) doing well, no need for medication at this time 03/05/2025 Adult general medica l examination (ICD-10 - Z00.00) labs reviewed and discussed with patient 03/05/2025 Pure hypercholesterolemia (ICD-10 - E78.00) at good level, will continue current regiment 03/05/2025 Vitamin D deficiency (ICD-10 - E55.9) good replacement, will continue current regiment 03/05/2025 Ankle pain, unspecif ied chronicity, unspecified laterality (ICD-10 - M25.579) [place] [facility] [place] Reg, pending diagnostic testing 03/05/2025 Depression screening (ICD-10 - Z13.31) negative screen Plan Of Treatment Medication Medication Name Sig Start Date Stop Date Notes Atorvastatin Calcium 40 MG TAKE 1 TABLET BY MOUTH EVERY DAY for 90 Vitamin D (Cholecalciferol) 1000 UNIT 1 tablet Orally Once a day 12/21/2016 Treatment Notes Assessment Notes Prediabetes doing well, no need for medication at this time Adult general medical examination labs r eviewed and discussed with patient Pure hypercholesterolemia at good level, will continue current regiment Vitamin D deficiency good replacement, w ill continue current regiment Ankle pain, unspecified box toe maker nicity, unspecified laterality order [place] [facility] Patient Reg, pending diagnostic testing Depression screening negative screen Next Appt Details Follow Up: 1 Year, Reason: Provider Name:Monroe baptiste, 08/29/2025 07:15:00 AM, [address] [place] [address], [address] [place] [address], [phone], Provider Name:Monroe baptiste, 09/05/2025 10:45:00 AM, [address] [place] [address], Suite [facility], [place], [place], [phone], Provider Name:Monroe baptiste, 03/03/2026 07:00:00 AM, [address] [place] [address], Suite [facility], [place], [place], [phone], Provider Name:Monroe baptiste, 03/10/2026 10:30:00 AM, [address], [address], [place], [phone], Progress Notes * Oscar WOODWARDOB:1955 ([age] yo F)Acc No.[id number]:03/05/2025 Progress Notes Patient: Adelaida ROJO Provider: Shireen Meléndez MD :1955 A ge:69 Y S ex:Female Date:03/05/2025 Address:[address] [place] [address], [id number] Subjective: * Chief Complaints: * A NNUAL [...] at all, T otal Score 0 . I nterpretation and Intervention D epression Screening Findings N egative, F ollow-Up for Depression : review of PHQ-9 found negative result, no follow-up needed. C ommunication Needs: Communication Needs D oes [...] N one. S ymptom(s): patient is a 69 yo female here for annual vist with review of recent labs and follow up of chronic issues. * ROS: G eneral/Constitutional: Change in appetite d enies. C hills d enies. F ever d enies. O phthalmologic: Blurred vision d enies. D ischarge d enies. P ain d enies. E NT: Decreased hearing d enies. S ore throat d enies.?Swollen glands d enies. E ndocrine: Cold intolerance [...] U rinary incontinence D enies. M usculoskeletal: Painful joints d enies. W eakness d enies. ? S kin: Dry skin d enies. I [...] frequency:, 1-2 cups per day. Children: yes. Community involvements: no. Exercise: no. Home smoke detector use: yes. Living with: spouse. Marital status: . Occupation: works part-time. Pets: none. Travel outside of the [place]: yes, [place]. * Medications: T akingAspirin 81 81 MG Tablet Delayed Release 1 tablet Orally Once a day Vitamin D (Cholecalciferol) 1000 UNIT Tablet 1 tablet Orally Once a day Fluticasone Propionate 50 MCG/ACT Suspension 1 spray in each nostril Nasally Twice a day Atorvastatin Calcium 40 MG Tablet TAKE 1 TABLET BY MOUTH EVERY DAY Taking Aspirin 81 81 MG Tablet Delayed Release 1 tablet Orally Once a day Taking Vitamin D (Cholecalciferol) 1000 UNIT Tablet 1 tablet Orally Once a day Taking Fluticasone Propionate 50 MCG/ACT Suspension 1 spray in each nostril Nasally Twice a day Taking Atorvastatin Calcium 40 MG Tablet TAKE 1 TABLET BY MOUTH EVERY DAY Not-Taking/PRNOmeprazole 20 MG Capsule Delayed Release 1 capsule Orally Once a day Levsin/SL 0.125 MG Tablet Sublingual 1 tablet under the tongue and allow to dissolve before meals as needed Sublingual once per day Omeprazole 20 MG Unspecified 1 capsule Orally Once a day Medication List reviewed and reconciled with the patientNot-Taking/PRN Omeprazole 20 MG Capsule Delayed Release 1 capsule Orally Once a day Not-Taking/PRN Levsin/SL 0.125 MG Tablet Sublingual 1 tablet under the tongue and allow to dissolve before meals as needed Sublingual once per day Not-Taking/PRN Omeprazole 20 MG Unspecified 1 capsule Orally Once a day Medication List reviewed and reconciled with the patient * Allergies: N .K.D.A.yes[Allergies Verified] Objective: * Vitals: H t: 60, Wt: 157, BMI:30.66, BP:132/74, Wt-k.21. weight is up 8 pounds since 03-01-24. * P ast Orders: L ab:Microalbumin, Random (Order Date - 02/26/2025) (Collection Date & Time - 02/26/2025 07:15 AM) Value Reference Range Creatinine Urine 96.40 - mg/dL Microalbumin Urine < 5.0 - mg/L Microalbum Creatinine Ratio Ur TNP <30 - ug/ mg cr L ab:Hemoglobin A1c (Order Date - 02/26/2025) (Collection Date & Time - 02/26/2025 07:15 AM) Value Reference Range Hemoglobin A1c % 5.7 <6.0 - % Estimated Average Glucose 117 - mg/dL L ab:Complete Blood Count Auto Diff (Order Date - 02/26/2025) (Collection Date & Time - 02/26/2025 07:15 AM) Value Reference Range White Blood Count 6.2 4.8-10.8 - X10*3/uL Red Blood Count 4.41 4.20-5.50 - X10*6/uL Hemoglobin 13.3 12.0-16.0 - g/dl Hematocrit 39.8 37.0-47.0 - % Mean Corpuscular Volume 90.2 80.0-98.0 - fL Mean Corpuscular Hemoglobin 30.2 27.0-33.0 - pg Mean Corpuscular HGB Conc 33.4 31.0-35.0 - g/ dl Red Cell Distribution Width 13.2 11.0-16.0 - % Platelet Count 231 160-400 - X10*3/uL Mean Platelet Volume 11.3 9.4-12.3 - fL Neutrophils Percent Auto 51.8 45-73 - % Imm Gran Pct Auto 0.2 0.0-0.4 - % Lymphocytes Percent Auto 31.3 20-40 - % Monocytes Percent Auto 7.8 2-11 - % Eosinophils Percent Auto 7.1 H 0-4 - % Basophils Percent Auto 1.8 0-2 - % NRBC Pct Auto 0.0 0.0-0.2 - /100WBC Neutrophils Absolute Auto 3.2 2.0-8.3 - x10* 3/uL Imm Gran Abs Auto 0.01 0.00-0.03 - X10*3/uL Lymphocytes Absolute Auto 1.9 1.2-4.9 - X10* 3/uL Monocytes Absolute Auto 0.5 0.1-1.2 - X10*3/ uL Eosinophils Absolute Auto 0.4 0.0-0.4 - X10* 3/uL Basophils Absolute Auto 0.1 0.0-0.2 - X10*3/ uL NRBC Abs Auto 0.000 0.0-0.012 - X10*3/uL L ab:UA ClnCatch+Micro w/rflx Cult (Order Date - 02/26/2025) (Collection Date & Time - 02/26/2025 07:15 AM) Value Reference Range Color Urine Yellow - Appearance Urine Clear - PH 6.5 5.0-9.0 - Glucose Urine UA Negative Negative - mg/dL Urine Blood Negative Negative - Specific [place] - Urine 1.015 1.005-1.025 - Urine Protein Negative Neg-Trace - mg/dL Urine Ketones Negative Negative - mg/dL Nitrite Urine Negative Negative - Leukocyte Esterase Urine Small (1+) A Negative - RBC Urine 0-2 0-2 - /HPF WBC Urine 0-5 0-5 - /HPF Squamous Epithelial Cell Urine 0-2 0-2 - /HP F Bacteria Urine None Seen None Seen - Hyaline Casts Urine 0-2 0-2 - /LPF L ab:Comprehensive [place]. Panel Fast (Order Date - 02/26/2025) (Collection Date & Time - 02/26/2025 07:15 AM) Value Reference Range Sodium 140 135-145 - mmol/L Bilirubin Total 0.9 0.0-1.0 - mg/dL Aspartate Amino Transferase 24 5-31 - U/L Alanine Aminotransferase 21 0-31 - U/L Total Protein 7.1 6.5-8.0 - g/dL Albumin Level 4.0 3.5-5.0 - g/dL Alkaline Phosphatase 87 39-117 - U/L Potassium 4.2 3.3-5.1 - mmol/L Chloride 108 96-108 - mmol/L Carbon Dioxide 27 22-29 - mmol/L Anion Gap 9 L 12-20 - Blood Urea Nitrogen 13 9-16 - mg/dL Creatinine 0.68 0.5-1.4 - mg/dL Estimated Glomerular Filt Rate > 60 - Glucose Fasting 96 60-99 - mg/dL Calcium 9.3 8.4-10.2 - mg/dL L ab:Lipid Panel (Order Date - 02/26/2025) (Collection Date & Time - 02/26/2025 07:15 AM) Value Reference Range Triglycerides 90 <150 - mg/dL Cholesterol 148 <200 - mg/dL LDL Cholesterol Calculated 68 <100 - mg/dL HDL Cholesterol 62 >40 - mg/dL L ab:Vitamin D 25-OH Total (Order Date - 02/26/2025) (Collection Date & Time - 02/26/2025 07:15 AM) Value Reference Range Vitamin D 25-OH Total 62.2 >30 - ng/mL * Examination: G eneral [...] , no masses palpable. RECTAL EXAM: d eclined. FEMALE GENITOURINARY: d eclined. EXTREMITIES: n o clubbing, cyanosis, or edema. NEUROLOGIC: n onfocal, motor strength normal upper and lower extremities, sensory exam intact. Assessment: * Assessment: 1. A dult general medical examination - Z00.00 (Primary) 2 . P rediabetes - R73.09 3 . P ure hypercholesterolemia - E78.00 4 . V itamin D deficiency - E55.9 5 . A nkle pain, unspecified chronicity, unspecified laterality - M25.579 6 . D epression screening - Z13.31 Plan: * Treatment: 2. P rediabetes Notes: doing well, no need for medication at this time 3. P ure hypercholesterolemia Notes: at good level, will continue current regiment 4. V itamin D deficiency Continue Vitamin D (Cholecalciferol) Tablet, 1000 UNIT, 1 tablet, Orally, Once a day. Notes: good replacement, will continue current regiment 5. A nkle pain, unspecified chronicity, unspecified laterality I maging: XR ankle RT min 3V (Performed Date - 2025) Notes: order [place] [facility] Patient Reg, pending diagnostic testing 6. D epression screening Notes: negative screen 7. O thers Refill Atorvastatin Calcium Tablet, 40 MG, TAKE 1 TABLET BY MOUTH EVERY DAY, 90, 90 Tablet, Refills 4. * Procedure Codes: * Preventive Medicine: Counseling: C are goal follow-up plan: Logan vueling for abnormal BMI provided?Yes, Paige vance Normal BMI Follow-up G mervat encouragement to exercise. * Follow Up: 1 Year * * Sign off status: Completed true * Provider: Shireen Meléndez MD Date: 0 03/05/2025 Generated for Mandeep larkin/Rober/eTransmitting on: 1 10/06/2024 07:00 PM EST History and Physical Notes * HPI (History of Present Illness) Category Sub-Category Detail Notes Category Not es Symptom(s) patient is a 69 yo female here for annual vist with review of recent labs and follow up of chronic issues Depression Screening PHQ-9 Little inte rest or [...] way: Not at all Total Score: 0 Interpretation and Intervention Depression Leann herring Findings: Negative Follow-Up for Depression: : review of PH Q-9 found negative result, no follow-up needed SDOH Questions SDOH Questions In the past [...] had two or more falls in the st year?: No Communication Needs Communication Needs Does [...] BREASTS: No mass, no lump RECTAL EXAM: declined FEMALE GENITOURINARY: declined ORAL CAVITY: mucosa moist
--- OUTSIDE RECORDS SUMMARY | 2025-04-23 06:00 | XMS_ITS ---
Author Organization Monroe Meléndez MD Address [address] [place] [phone] Care Team Providers Care Waste Disposal Attendant Name Role Phone Monroe Meléndez Primary Care Provider REASON FOR VISIT HDF Immunizations Vaccine Route Administration Date Status Comme nts Influenza High Dose IM Intramuscular 04/23/2025 Administer ed Encounters Encounter Location Date Provider Diagnosis Monroe Meléndez MD 10 [facility] [address] [place] [phone] 04/23/2025 Monroe Meléndez Encounter for administration of vaccine Z23 Assessments Encounter Date Diagnosis (ICD Code) Assessment Notes Treatment Notes Treatment Clinical Notes Section Notes 04/23/2025 Encounter for administration of vaccine (ICD-10 - Z23) Plan Of Treatment Next Appt Details Provider Name:Monroe baptiste, 08/29/2025 07:15:00 AM, [address] [place] [address], [address], [phone], Provider Name:Monroe baptiste, 09/05/2025 10:45:00 AM, [address] [place] [address], [address], [phone], Provider Name:Monroe baptiste, 03/03/2026 07:00:00 AM, [address], [address], [place], [place], [phone], Provider Name:Monroe Hightower ier, 03/10/2026 10:30:00 AM, [address], [address], [place], [place], [phone], Progress Notes * Oscar WOODWARDOB:1955 ([age] yo F)Acc No.[id number]:04/23/2025 Progress Note Patient: Adelaida ROJO Provider: Shireen Meléndez MD :1955 A ge:70 Y S ex:Female Date:04/23/2025 Address:[address] [place], [place] [phone] Subjective: * Chief Complaints: * 1 . HDF. * Medical History: Objective: * Vitals: Assessment: * Assessment: 1. E ncounter for administration of vaccine - Z23 (Primary) Plan: * Treatment: * [...] * Provider: Shireen Meléndez MD Date: 0 04/23/2025 Generated for Mandeep larkin/Rober/Nileshsmitting on: 1 10/06/2024 07:01 PM EST
--- NOTE | ~2025-08-05 | US_ITS ---
EXAMINATION(S): 1. MM DIAGNOSTIC DIGITAL BREAST TOMOSYNTHESIS, BILATERAL 2. TARGETED ULTRASOUND OF THE LEFT BREAST CLINICAL INFORMATION: Callback from screening for bilateral findings: Right: Asymmetry in the superior breast middle depth with questionable distortion. Left: Two masses in the upper outer quadrant middle depth more prominent from prior. COMPARISON: Comparison made to multiple prior, most recent June 12, 2025, and most remote October 05, 2016. TECHNIQUE: Digital breast tomosynthesis is performed in right full-field MLO and ML 90 degrees along with computer-aided detection (CAD). Synthesized 2D images are generated from the tomosynthesis. Spot compression tomosynthesis of both breasts were obtained. FINDINGS: BREAST COMPOSITION: There are scattered areas of fibroglandular density. RIGHT BREAST: Previously suggested asymmetry in the superior breast middle depth is pliable with spot compression; the local parenchyma on today's images is similar to multiple prior studies as far back as 2016, and therefore, most likely represented overlapping fibroglandular breast tissue. LEFT BREAST: Two adjacent masses in the upper outer quadrant middle depth are again seen on today's images, located in the upper outer quadrant at approximately 8.5 cm from the nipple. Each mass measures approximately 0.5 cm currently, and measured approximately 0.3 cm in 2017. Targeted ultrasound of the left breast was performed at the location of the mammographic finding. The survey shows two adjacent hypoechoic oval structures at 2 o'clock position 9 cm from the nipple measuring 0.5 x 0.4 x 0.3 cm and 0.5 x 0.4 x 0.3 cm, with vascular pedicle demonstrated with color Doppler evaluation, compatible with two adjacent benign-appearing lymph nodes. US/US Breast LT Limited Mamm Only IMPRESSION: RIGHT BREAST: Negative, no mammographic evidence of malignancy. Normal interval follow-up is recommended in 12 months. LEFT BREAST: Two adjacent benign-appearing lymph nodes in the upper outer quadrant. Benign, no mammographic evidence of malignancy. Normal interval follow-up is recommended in 12 months. ASSESSMENT: BI-RADS: Category 2: Benign RECOMMENDATION: 1 year F/U Results were provided to the patient at time of visit by the technologist. This patient's information was entered into a reminder system with a target due date for their next mammogram. Electronically signed by: Jaymie Lopez MD 08/05/2025 02:32 PM FLAVIO RP
--- OUTSIDE RECORDS SUMMARY | 2025-08-05 19:01 | XMS_ITS | Patient Health Record ---
Author Organization Monroe Meléndez MD Address [address] [place], [place] [id number] Care Team Providers Care Cable Installation Technician Name Role Phone Monroe Meléndez Primary Care Provider Allergies No Known Allergies Results Component Value Reference Range Notes Complete Blood Count Auto Di ff Reviewed date:02/26/2025 12:36:30 PM Interpretation: Performing Lab:[facility], [address] [place] [phone] Notes/Report: White Blood Count 6.2 4.8-10.8 X10*3/uL [...] NRBC Abs Auto 0.000 0.0-0.012 X10*3/uL Comprehensive [place]. Panel Fa st Reviewed date:02/26/2025 12:43:14 PM Interpretation: Performing Lab:[address] [address] Notes/Report: Sodium 140 135-145 mmol/L Potassium 4.2 [...] Panel Reviewed date:02/26/2025 12:36:39 PM Interpretation: Performing Lab:[address] [phone] Notes/Report: Triglycerides 90 <150 mg/dL Desirable Triglyceride: [...] Total Reviewed date:02/26/2025 12:37:16 PM Interpretation: Performing Lab:[address] [address] Notes/Report: Vitamin D 25-OH Total 62.2 >30 [...] Random Reviewed date:02/26/2025 12:36:05 PM Interpretation: Performing Lab:[address] [address] Notes/Report: Creatinine Urine 96.40 Microalbumin Urine < 5.0 Microalbum/Creatinine Ratio Ur TNP <30 ug/mg cr Unable to calculate albumin/creatinine ratio due to low microalbumin or creatinine result. Hemoglobin A1c Reviewed date:02/26/2025 12:35:57 PM Interpretation: Performing Lab:[facility], [address] [place] [phone] Notes/Report: Hemoglobin A1c % 5.7 <6.0 % [...] average glucose, using the formula of the X7E-Qytucub Average Glucose study (ADAG), Diabetes Care, Vol.31,#8, Mar. 2007 UA ClnCatch+Micro w/rflx Cul t Reviewed date:02/26/2025 12:44:13 PM Interpretation: Performing Lab:[facility], [address] [place] [phone] Notes/Report: Urine, Clean Catch Color Urine Yellow Appearance Urine Clear PH 6.5 5.0-9.0 Glucose Urine UA Negative Negative mg/dL Urine Blood Negative Negative Specific Ione - Urine 1.015 1.005-1.025 Urine Protein Negative [...] date:2025 03:50:20 PM Interpretation: Performing Lab: Notes/Report: [address] [address] XRay Report Signed Patient: Adelaida Rosas MR#: [id number] : 1955 Acct:[id number] Age/Sex: 70 / F ADM Date: 03/06/25 Loc: HO.XRAY Attending Dr: Monroe Meléndez MD Ordering Physician: Monroe Meléndez MD Date of Service: 03/06/25 Procedure(s): XR ankle RT min 3V Accession Number(s): [id number] cc: Monroe Meléndez MD EXAMINATION: XR ANKLE [...] 03/06/25 1405 DD/ 1350 TD/TT: 03/06/25 1402 Dish Maker: [place] [address] XRay Report Signed Patient: Adelaida Rosas MR#: [id number] : 1955 Acct:[id number] Age/Sex: 70 / F ADM Date: 03/06/25 Loc: HO.XRAY Attending Dr: Monroe Meléndez MD Ordering Physician: Monroe Meléndez MD Date of Service: 03/06/25 Procedure(s): XR ank le RT min 3V Accession Number(s): [id number] cc: Monroe Meléndez MD EXAMINATION: XR ANKL [...] 03/06/25 1405 DD/ 1350 TD/TT: 03/06/25 1402 Dish Maker: Rashmi Abdul Reviewed date:02/26/2025 12:35:29 PM Interpretation: Performing Lab:[facility], [address] [place] [phone] Notes/Report: Rashmi Abdul See Note Specimen held untested for 24 hours; Call to request Chemistry testing. Urine Culture Reviewed date:02/28/2025 05:10:36 PM Interpretation: Performing Lab:[facility], [address] [place] [phone] Notes/Report: Urine Culture Report Result Urine Culture 50,000 to 100,000 cfu/ml Urine Culture Mixed bacterial osmin a characteristic of Urine Culture urogenital contamination. MM tomosynthesis screening B I Reviewed date:06/24/2025 04:04:23 PM Interpretation: Performing Lab: Notes/Report: [facility]'s [address] [place] [address] Mammography Report Signed with Addenda Patient: Adelaida Rosas MR#: [id number] : 1955 Acct:[id number] Age/Sex: 70 / F ADM Date: 06/12/25 Loc: HO.MAMMO Attending Dr: Monroe Meléndez MD Ordering Physician: Monroe Meléndez MD Results: 0In complete- Need Additional Imaging Evaluation Date of Service: 06/12/25 Follow Up: Additional Imagi ng Procedure(s): MM tomosynthesis screening BI Accession Number(s): [id number] cc: Monroe Meléndez MD Reason For Exam: SCREENING ADDENDUM ADDENDUM #1 ADDENDUM: Due to a software issue this mammogram was reviewed a second time. The findings and recommendations remain the same. OVERALL ASSESSMENT: Category 0: Incomplete - Need additional Imaging Evaluation RECOMMENDATION: Additional Imaging required Electronically signed by: Joann Garza DO 06/24/2025 02:46 PM EST RP Addendum Dictated By: Joann Garza DO Addendum Signed By: <Electronically signed by Joann Garza DO in OV> 06/24/25 1446 Addendum Cosigned By: DD/ TD/TT: 06/12/25 EXAMINATION: MM SCREENING DIGITAL BREAST TOMOSYNTHESIS, BILATERAL CLINICAL INFORMATION: Screening. Asymptomatic. COMPARISON: Mammography: Comparison is made with available priors TECHNIQUE: Digital breast mammography with tomosynthesis is performed in both the craniocaudal and mediolateral oblique views along with computer-aided detection (CAD). FINDINGS: There are scattered areas of fibroglandular density. Left: 2 circumscribed oval masses adjacent to each other upper outer breast middle depth slightly more prominent from prior. No suspicious calcifications or other abnormal findings. Right: Asymmetry superior breast middle depth with questioned distortion. No suspicious calcifications or other abnormal findings. MM/MM tomosynthesis screening BI IMPRESSION: Additional imaging is recommended ASSESSMENT: BI-RADS Category 0: Incomplete - Need additional Imaging Evaluation RECOMMENDATION: 1. Additional views of the bilateral breasts. 2. Targeted ultrasound if warranted after review of the additional views. 3. Radiology department staff will contact the patient for additional imaging. Additional Imaging required Electronically signed by: Joann Garza DO 06/14/2025 05:29 PM EDT RP Dictated By: Joann Garza DO Signed By: <Electronically signed by Joann Garza DO in OV> 06/14/25 1729 DD/ 4 TD/TT: 06/12/25754 Dish Maker: [facility] [address] [place] [address] [place] [address] Mammography Report Signed with Addenda Patient: Adelaida Rosas MR#: [id number] : 1955 Acct:[id number] Age/Sex: 70 / F ADM Date: 06/12/25 Loc: HO.MAMMO Attending Dr: Monroe Meléndez MD Ordering Physician: Monroe Meléndez MD Results: 0In complete- Need Additional Imaging Evaluation Date of Service: 06/12/25 Follow Up: Additional Imagi ng Procedure(s): MM tomosynthesis screening BI Accession Number(s): [id number] cc: Monroe Melénedz MD Reason For Exam: SCREENING ADDENDUM ADDENDUM #1 ADDENDUM: Due to a software is shaye this mammogram was reviewed a second time. The findings and recommendations remain the same. OVERALL ASSESSMENT: Category 0: Incomple te - Need additional Imaging Evaluation RECOMMENDATION: Additional Imaging required Electronically jarad d by: Joann Garza DO 06/24/2025 02:46 PM EST Addendum Dictated By : Joann Garza DO Addendum Signed By: <Electronically signed by Joann Garza DO in OV> 06/24/25 1446 Addendum Cosigned By: DD/ TD/TT: 06/12/25 EXAMINATION: MM SCREENING DIGITAL BREAST TOMOSYNTHESIS, BILATERAL CLINICAL INFORMATION: Screening. Asymptomatic. COMPARISON: Mammography: Compari son is made with available priors TECHNIQUE: Digital breast mammography with tomosynthesis is performed in both the craniocaudal and mediolateral oblique views along with computer-aided detection (CAD). FINDINGS: There are scattered areas of fibroglandular density. Left: 2 circumscribed oval masses adjacent to each other upper outer breast middle depth slightl y more prominent from prior. No suspicious calcifications or other abnormal findings. Right: Asymmetry superior breast middle depth with questioned distortion. No suspicious calcifications or other abnormal findings. MM/MM tomosynthesis screening BI IMPRESSION: Additional imaging i s recommended ASSESSMENT: BI-RADS Category 0: Incomplete - Need additional Imaging Evaluation RECOMMENDATION: 1. Additional views of the bilateral breasts. 2. Targeted ultrasou nd if warranted after review of the additional views. 3. Radiology departm ent staff will contact the patient for additional imaging. Additional Imaging required Electronically jarad d by: Joann Garza DO 06/14/2025 05:29 PM EDT RP Dictated By: Joann Garza DO Signed By: <Electronically signed by Joann Garza DO in OV> 06/14/25 1729 DD/ 0745 TD/TT: 06/12/25 0755 Dish Maker: US breast LT limited mamm on ly (Not yet reviewed by provider) Interpretation: Performing Lab: Notes/Report: [facility]'[address] [place] [address] Ultrasound Report Signed Patient: Adelaida Rosas MR#: [id number] : 1955 Acct:[id number] Age/Sex: 70 / F ADM Date: 08/05/25 Loc: HO.MAMMO Attending Dr: Monroe Meléndez MD Ordering Physician: Monroe Meléndez MD Date of Service: 08/05/25 Procedure(s): US Breast LT Limited Mamm Only Accession Number(s): [id number] cc: Monroe Meléndez MD Reason for Exam: US LT- 2 OVAL MASSES UOQ EXAMINATION(S): 1. MM DIAGNOSTIC DIGITAL BREAST TOMOSYNTHESIS, BILATERAL 2. TARGETED ULTRASOUND OF THE LEFT BREAST CLINICAL INFORMATION: Callback from screening for bilateral findings: Right: Asymmetry in the superior breast middle depth with questionable distortion. Left: Two masses in the upper outer quadrant middle depth more prominent from prior. COMPARISON: Comparison made to multiple prior, most recent June 12, 2025, and most remote October 05, 2016. TECHNIQUE: Digital breast tomosynthesis is performed in right full-field MLO and ML 90 degrees along with computer-aided detection (CAD). Synthesized 2D images are generated from the tomosynthesis. Spot compression tomosynthesis of both breasts were obtained. FINDINGS: BREAST COMPOSITION: There are scattered areas of fibroglandular density. RIGHT BREAST: Previously suggested asymmetry in the superior breast middle depth is pliable with spot compression; the local parenchyma on today's images is similar to multiple prior studies as far back as 2017, and therefore, most likely represented overlapping fibroglandular breast tissue. LEFT BREAST: Two adjacent masses in the upper outer quadrant middle depth are again seen on today's images, located in the upper outer quadrant at approximately 8.5 cm from the nipple. Each mass measures approximately 0.5 cm currently, and measured approximately 0.3 cm in 2017. Targeted ultrasound of the left breast was performed at the location of the mammographic finding. The survey shows two adjacent hypoechoic oval structures at 2 o'clock position 9 cm from the nipple measuring 0.5 x 0.4 x 0.3 cm and 0.5 x 0.4 x 0.3 cm, with vascular pedicle demonstrated with color Doppler evaluation, compatible with two adjacent benign-appearing lymph nodes. US/US Breast LT Limited Mamm Only IMPRESSION: RIGHT BREAST: Negative, no mammographic evidence of malignancy. Normal interval follow-up is recommended in 12 months. LEFT BREAST: Two adjacent benign-appearing lymph nodes in the upper outer quadrant. Benign, no mammographic evidence of malignancy. Normal interval follow-up is recommended in 12 months. ASSESSMENT: BI-RADS: Category 2: Benign RECOMMENDATION: 1 year F/U Results were provided to the patient at time of visit by the technologist. This patient's information was entered into a reminder system with a target due date for their next mammogram. Electronically signed by: Jaymie Lopez MD 08/05/2025 02:32 PM [facility] Dictated By: Jaymie Lopez MD Signed By: <Electronically signed by Jaymie Lopez MD in OV> 08/05/25 1432 DD/ 1404 TD/TT: 08/05/25 1410 Dish Maker: [facility] [address] [place] [address] Ultrasound Report Signed Patient: Adelaida Rosas MR#: [id number] : 1955 Acct:[id number] Age/Sex: 70 / F ADM Date: 08/05/25 Loc: HO.MAMMO Attending Dr: Monroe Meléndez MD Ordering Physician: Monroe Meléndez MD Date of Service: 08/05/25 Procedure(s): US Valery ast LT Limited Mamm Only Accession Number(s): [id number] cc: Monroe Meléndez MD Reason for Exam: US LT- 2 OVAL MASSES UOQ EXAMINATION(S): 1. MM DIAGNOSTIC DIGITAL BREAST TOMOSYNTHESIS, BILATERAL 2. TARGETED ULTRASOU ND OF THE LEFT BREAST CLINICAL INFORMATION: Callback from screen ing for bilateral findings: Right: Asymmetry in the superior breast middle depth with questionable distortion. Left: Two masses in the upper outer quadrant middle depth more prominent from prior. COMPARISON: Comparis on made to multiple prior, most recent June 12, 2025, and most remot e October 05, 2016. TECHNIQUE: Digital breast tomosynthesis is performed in right full-field MLO and ML 90 degrees along with computer-aided detection (CAD). Synthesized 2D images are genera armaan from the tomosynthesis. Spot compression tomosynthesis of bot h breasts were obtained. FINDINGS: BREAST COMPOSITION: There are scattered areas of fibroglandular density. RIGHT BREAST: Previously suggested asymmetry in the superior breast middle depth is plia ble with spot compression; the local parenchyma on today's images is similar to multiple prior studies as far back as 2016, and therefore, most likely represented overlapping fibroglandular breast tissue. LEFT BREAST: Two adjacent masses in the upper outer quadrant middle depth are again seen on today's images, located in the upper outer quadrant at approximately 8.5 cm from the nipple. Each mass measures approximately 0.5 cm currently, and measured approximately 0.3 cm in 2017. Targeted ultrasound of the left breast was performed at the location of the mammographic finding. The survey shows two adjacent hypoechoic oval structures at 2 o'cl ock position 9 cm from the nipple measuring 0.5 x 0.4 x 0.3 cm and 0.5 x 0.4 x 0.3 cm, with vascular pedicle demonstrated with color Doppler evaluation, compatible with two adjacent benign-appearing lym ph nodes. US/US Breast LT Limited Mamm Only IMPRESSION: RIGHT BREAST: Negati ve, no mammographic evidence of malignancy. Normal interval follow-up i s recommended in 12 months. LEFT BREAST: Two adjacent benign-appearing lymph nodes in the upper outer quadrant. Jaun gn, no mammographic evidence of malignancy. Normal interval follow-up i s recommended in 12 months. ASSESSMENT: BI-RADS: Category 2: Benign RECOMMENDATION: 1 year F/U Results were provide d to the patient at time of visit by the technologist. This patient's information was entered into a reminder system with a target due date for their next mammogram. Electronically jarad d by: Jaymie Lopez MD 08/05/2025 02:32 PM [facility] Dictated By: Jaymie Lopez MD Signed By: <Electronically signed by Jaymie Lopez MD in OV> 08/05/25 1432 DD/ 1404 TD/TT: 08/05/25 1410 Dish Maker: MM tomosynthesis diagnostic BI Reviewed date:08/05/2025 04:30:05 PM Interpretation: Performing Lab: Notes/Report: [address] [place] [address] Mammography Report Signed Patient: Adelaida Rosas MR#: [id number] : 1955 Acct:[id number] Age/Sex: 70 / F ADM Date: 08/05/25 Loc: HO.MAMMO Attending Dr: Monroe Meléndez MD Ordering Physician: Monroe Meléndez MD Results: 2Be nign Date of Service: 08/05/25 Follow Up: 1 Year From Orig ina Mammogram Procedure(s): MM tomosynthesis diagnostic BI Accession Number(s): [id number] cc: Monroe Meléndez MD Reason For Exam: BILAT AV US LT- 2 OVAL MASSES UOQ RT- ASYMMETRY SUPERIOR BR EXAMINATION(S): 1. MM DIAGNOSTIC DIGITAL BREAST TOMOSYNTHESIS, BILATERAL 2. TARGETED ULTRASOUND OF THE LEFT BREAST CLINICAL INFORMATION: Callback from screening for bilateral findings: Right: Asymmetry in the superior breast middle depth with questionable distortion. Left: Two masses in the upper outer quadrant middle depth more prominent from prior. COMPARISON: Comparison made to multiple prior, most recent June 12, 2025, and most remote October 05, 2016. TECHNIQUE: Digital breast tomosynthesis is performed in right full-field MLO and ML 90 degrees along with computer-aided detection (CAD). Synthesized 2D images are generated from the tomosynthesis. Spot compression tomosynthesis of both breasts were obtained. FINDINGS: BREAST COMPOSITION: There are scattered areas of fibroglandular density. RIGHT BREAST: Previously suggested asymmetry in the superior breast middle depth is pliable with spot compression; the local parenchyma on today's images is similar to multiple prior studies as far back as 2017, and therefore, most likely represented overlapping fibroglandular breast tissue. LEFT BREAST: Two adjacent masses in the upper outer quadrant middle depth are again seen on today's images, located in the upper outer quadrant at approximately 8.5 cm from the nipple. Each mass measures approximately 0.5 cm currently, and measured approximately 0.3 cm in 2017. Targeted ultrasound of the left breast was performed at the location of the mammographic finding. The survey shows two adjacent hypoechoic oval structures at 2 o'clock position 9 cm from the nipple measuring 0.5 x 0.4 x 0.3 cm and 0.5 x 0.4 x 0.3 cm, with vascular pedicle demonstrated with color Doppler evaluation, compatible with two adjacent benign-appearing lymph nodes. MM/MM tomosynthesis diagnostic BI IMPRESSION: RIGHT BREAST: Negative, no mammographic evidence of malignancy. Normal interval follow-up is recommended in 12 months. LEFT BREAST: Two adjacent benign-appearing lymph nodes in the upper outer quadrant. Benign, no mammographic evidence of malignancy. Normal interval follow-up is recommended in 12 months. ASSESSMENT: BI-RADS: Category 2: Benign RECOMMENDATION: 1 year F/U Results were provided to the patient at time of visit by the technologist. This patient's information was entered into a reminder system with a target due date for their next mammogram. Electronically signed by: Jaymie Lopez MD 08/05/2025 02:32 PM [facility] Dictated By: Jaymie Lopez MD Signed By: <Electronically signed by Jaymie Lopez MD in OV> 08/05/25 1432 DD/ 1335 TD/TT: 08/05/25 1346 Dish Maker: [place] [facility] [address] [place] [address] Mammography Report Signed Patient: Ralph,Adelaida C MR#: [id number] : 1955 Acct:[id number] Age/Sex: 70 / F ADM Date: 08/05/25 Loc: HO.MAMMO Attending Dr: Monroe Meléndez MD Ordering Physician: Monroe Meléndez MD Results: 2Be nign Date of Service: 08/05/25 Follow Up: 1 Year From Orig inal Mammogram Procedure(s): MM tomosynthesis diagnostic BI Accession Number(s): [id number] cc: Monroe Meléndez MD Reason For Exam: AKI AT AV US LT- 2 OVAL MASSES UOQ RT- ASYMMETRY SUPERIOR BR EXAMINATION(S): 1. MM DIAGNOSTIC DIGITAL BREAST TOMOSYNTHESIS, BILATERAL 2. TARGETED ULTRASOU ND OF THE LEFT BREAST CLINICAL INFORMATION: Callback from screen ing for bilateral findings: Right: Asymmetry in the superior breast middle depth with questionable distortion. Left: Two masses in the upper outer quadrant middle depth more prominent from prior. COMPARISON: Comparis on made to multiple prior, most recent June 12, 2025, and most remot e October 05, 2016. TECHNIQUE: Digital breast tomosynthesis is performed in right full-field MLO and ML 90 degrees along with computer-aided detection (CAD). Synthesized 2D images are genera armaan from the tomosynthesis. Spot compression tomosynthesis of bot h breasts were obtained. FINDINGS: BREAST COMPOSITION: There are scattered areas of fibroglandular density. RIGHT BREAST: Previously suggested asymmetry in the superior breast middle depth is plia ble with spot compression; the local parenchyma on today's images is similar to multiple prior studies as far back as 2016, and therefore, most likely represented overlapping fibroglandular breast tissue. LEFT BREAST: Two adjacent masses in the upper outer quadrant middle depth are again seen on today's images, located in the upper outer quadrant at approximately 8.5 cm from the nipple. Each mass measures approximately 0.5 cm currently, and measured approximately 0.3 cm in 2017. Targeted ultrasound of the left breast was performed at the location of the mammographic finding. The survey shows two adjacent hypoechoic oval structures at 2 o'cl ock position 9 cm from the nipple measuring 0.5 x 0.4 x 0.3 cm and 0.5 x 0.4 x 0.3 cm, with vascular pedicle demonstrated with color Doppler evaluation, compatible with two adjacent benign-appearing lym ph nodes. MM/MM tomosynthesis diagnostic BI IMPRESSION: RIGHT BREAST: Negati ve, no mammographic evidence of malignancy. Normal interval follow-up i s recommended in 12 months. LEFT BREAST: Two adjacent benign-appearing lymph nodes in the upper outer quadrant. Jaun gn, no mammographic evidence of malignancy. Normal interval follow-up i s recommended in 12 months. ASSESSMENT: BI-RADS: Category 2: Benign RECOMMENDATION: 1 year F/U Results were provide d to the patient at time of visit by the technologist. This patient's information was entered into a reminder system with a target due date for their next mammogram. Electronically jarad d by: Jaymie Lopez MD 08/05/2025 02:32 PM [facility] Dictated By: Jaymie Lopez MD Signed By: <Electronically signed by Jaymie Lopez MD in OV> 08/05/25 1432 DD/ 1335 TD/TT: 08/05/25 1346 Dish Maker: Reason For Referral No Information Medications Medication [...] Administered Fluarix Quadrivalent IM Intramuscular 06/03/2017 Admindominique pandey Prevnar 13 IM Intramuscular 06/14/2017 Administered Fluarix [...] Problem Status W/U Status Risk Notes Problem 82385773 Vitamin D defici ency (E55.9) Active confirmed Problem 6733933 Prediabetes (R73.09) Active confirmed Problem 77174231 Osteoporosis (M81.0) Active confirmed Problem 759286470 Abnormal LFTs (R79.89) Active confirm ed Problem 022922112 History of hemat uria (Z87.448) Active confirmed Problem 712848462 Pure hypercholesterolemia (E78.00) Active confirmed Problem 155884881 BMI 30.0-30.9,ad ult (Z68.30) Active confirmed Problem 035765413 History of pacem carson (Z95.0) Active confirmed Problem 180503581 Abdominal aortic atherosclerosis (I70.0) Active confirmed Vital [...] Monroe Meléndez MD [address] [place] [phone] 02/26/2025 Monroe Meléndez Blood tests for rout ine general physical examination Z00.00 ; Prediabetes R73.09 ; Pure hypercholesterolemia E78.00 and Vitamin D deficiency E55.9 Monroe Meléndez MD [address] [phone] 04/23/2025 Monroe Meléndez Encounter for administration of vaccine Z23 Monroe Meléndez MD [address] [phone] 03/05/2025 Monroe Meléndez Prediabetes R73.09 ; Adult general medical examination Z00.00 ; Pure hypercholesterolemia E78.00 ; Vitamin D deficiency E55.9 ; Ankle pain, unspecified chronicity, unspecified laterality M25.579 and Depression screening Z13.31 Monroe Meléndez MD [address] [phone] 09/04/2024 Monroe Meléndez MD [address] [place] [address] [address] [phone] 09/04/2024 Monroe Meléndez MD [address] [place] [address] [address] [phone] 11/05/2024 Monroe Meléndez Assessments Encounter Date Diagnosis [...] laterality (ICD-10 - M25.579) order faxed to [facility] Patient Reg, pending diagnostic testing 03/05/2025 Depression screening (ICD-10 - Z13.31) negative screen Plan Of Treatment Pending Test Test Name Order Date XR GI SERIES 11/18/2015 BONE DENSITY DEXA 02/13/2021 ECHO 01/23/2019 MM tomosynthesis screening BI 02/13/2021 XR DEXA axial skeleton 04/14/2021 US breast LT limited mamm only Next Appt Details Provider Name:Monroe Hightower ier, 08/29/2025 07:15:00 AM, [address] [place] [address], [address], [phone], Provider Name:Monroe Hightower ier, 09/05/2025 10:45:00 AM, [address] [place] [address], [address], [phone], Provider Name:Monroe Hightower ier, 03/03/2026 07:00:00 AM, [address] [place] [address], [place] [address], [place], [place], [id number], Provider Name:Monroe Hightower ier, 03/10/2026 10:30:00 AM, [address] [place] [address], [address], [id number], Insurance Providers Payer Name Payer Address Payer Phone Subscriber Number Group Number Insured Name Patient Relationship to Insured Coverage Start Date Coverage End Date [employer]AN [facility] [address] [place] [phone] [id number] Adelaida Rosas Self - patient is the insured 0 MEDICARE [employer] [address] [place] [id number] Adelaida Rosas Self - patient is the insured Medical (General) History Medical History History ICD Code hematuria worked up 2008 colonoscopy 2006; colonoscop y done 06/23/[address] Ng (repeat 10 years)upper endo [address] Solano 05/2013
--- OUTSIDE RECORDS SUMMARY | 2025-08-05 19:02 | XMS_ITS | Patient Health Record ---
Author Organization [facility] Address [address] [place] [address] Care Team Providers Care Floral Manager Name Role Phone Monroe Meléndez MD Primary Care Provider German Charlton [phone] Reason For Referral No Information Medications Medication SIG (Take, Route, Frequency, Duration) Notes Start Date End Date Status Hyoscyamine 0.125 mg SUBLINGUAL 1 TAB Sublingual Active Omeprazole 20 MG Capsule Delayed Release 1 capsule Orally Once a day/ NEEDED Active Social History Social History Additional Details Category Social Info Options Details Miscellaneous: Marital status: 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 [employer] Notes: Nonsmoker; no sig alcohol Problems Problem Type SNOMED Code ICD Code Onset Dates Problem Status W/U Status Risk Notes Problem Screening for malignant neoplasm of colon (785494826) Encounter for screening for malignant neoplasm of colon (Z12.11) Active confirmed Problem Screening for malignant neoplasm of rectum (088590440) Encounter for screening for malignant neoplasm of rectum (Z12.12) Active confirmed Problem Gastroesophageal reflux disease (224602657) Gastroesophageal reflux disease, esophagitis presence not specified (K21.9) Active confirmed Plan Of Treatment Pending Test Test Name Order Date GI BIOPSY 06/23/2016 Future Test Test Name Order Date UPPER GI ENDOSCOPY 04/06/2016 COLONOSCOPY 04/06/2016 Insurance Providers Payer Name Payer Address Payer Phone Subscriber Number Group Number Insured Name Patient Relationship to Insured Coverage Start Date Coverage End Date [facility] [address] [place] [address] [id number] TAM[address] WOODWARD Self - patient is the insured Medical (General) History Medical History History ICD Code Negative screening colonosocpy 01-12-2007 --diverticulosis History of infectious colitis--Andrewell a History of elevated liver function tests --neg. w/u in 2006 Denies MT,DM,CVA,Lung disease,renal dise ase Surgical History Surgery Date(Month/Year) Right ankle fusion
== END 2025-08-05 13:03 | disposition home or self-care (01) ==
LOC: HO.MAMMO 13:02
PROVIDERS: PCP Internal Medicine; Visit Provider Internal Medicine
DX: N63.21 Unspecified lump in the left breast, upper outer quadrant (principal)
CPT/HCPCS: 76642; 77062; 77066

== ENCOUNTER → 2025-08-05 13:30 | Outpatient (BNV) | payer MEDICARE, SELFPAY | PROVIDERS: PCP Internal Medicine; Visit Provider Radiology Body Imaging | DX: R92.8 Other abnormal and inconclusive findings on diagnostic imaging of breast (principal) | CPT/HCPCS: 76642; 77066; G0279 ==

== ENCOUNTER → 2025-08-07 14:12 | Outpatient (BNV) | payer MEDICARE, SELFPAY | PROVIDERS: PCP Internal Medicine; Visit Provider Internal Medicine Cardiovascular Disease | DX: Z45.018 Encounter for adjustment and management of other part of cardiac pacemaker (principal) | CPT/HCPCS: 93294 ==